=== PATIENT | female | born 1950 | race Caucasian/White ===

== ENCOUNTER → 2017-07-06 | Outpatient (CLI) | payer MEDICARE, SELFPAY | PROVIDERS: PCP Internal Medicine; Visit Provider Internal Medicine | DX: R92.8 Other abnormal and inconclusive findings on diagnostic imaging of breast (principal) | CPT/HCPCS: 76641; 77065; G0206 ==

== ENCOUNTER → 2017-07-20 15:22 | Outpatient (CLI) | payer MEDICARE, SELFPAY ==
--- NOTE | 2017-07-20 15:33 | XR_ITS ---
XR chest 2V HISTORY: ITS.REASON: COPD, COUGH, FEVER ORDERING PHYSICIAN: Nick Osborne PATIENT AGE: 66 years COMPARISON: 10/29/2015 FINDINGS: The cardiomediastinal silhouette and pulmonary vascularity are within normal limits. Hyperinflation with attenuation of peripheral pulmonary vessels and bronchial thickening consistent with obstructive chronic bronchitis. No lobar consolidation or collapse.. No acute bony abnormalities. IMPRESSION: COPD. No change with no acute finding
== END ==
PROVIDERS: PCP Internal Medicine; Visit Provider Internal Medicine
DX: J44.9 Chronic obstructive pulmonary disease, unspecified (principal); R05 Cough; R50.9 Fever, unspecified
CPT/HCPCS: 71046

== ENCOUNTER → 2018-01-07 13:02 | Outpatient (CLI) | payer MEDICARE, SELFPAY ==
--- NOTE | 2018-01-07 13:08 | US_ITS ---
MM Dig mamm DX unilat LT CAD, US breast LT complete Ordering Physician: Nick Osborne Patient Age: 67 years Female COMPARISON: Bilateral mammogram 09/20/2015 and April 2014. 06/21/2017. Additional views left breast and left breast ultrasound 07/06/2017.. INDICATION: Further evaluation nodularity and calcifications left breast. TECHNIQUE: CC, MLO as well as spot magnification CC and MLO views of the left breast. . Subsequent ultrasound including axillary survey also subsequent performed bh ======== DIAGNOSTIC LEFT MAMMOGRAM WITH SPOT VIEWS Scattered minimal nodularity throughout the left breast again seen. . Scattered small punctate calcifications throughout the inferior breast. Similarly the loosely grouped with internal branching forms on these images.. The tight grouping calcifications less evident These appear fairly similar to prior studies and most likely reflecting adenosis.. Patient may resume annual follow-up., may want request additional magnification views on that follow-up ========= ULTRASOUND LEFT BREAST Including Axillary Survey . scattered small cysts are seen throughout left breast 12:00. Just less than 5 mm cyst 1:00. Tiny thin 3.8 mm cyst. 2:00 5 mm cyst. 8:00. 6.4 mm cyst. With this likely accounts for the density on recent mammogram Just Behind the nipple no area of minor ductal prominence vs small cyst less than 5 mm. Axillary survey. Benign axillary lymph node largest 1.5 cm length. ------IMPRESSION: Left Breast Mammogram Images: no significant new findings. Fairly stable appearance to the numerous faint small punctate calcifications and inferior breast. These are fairly scattered & fairly stable. Most likely reflecting adenosis. Bilateral follow-up mammogram in 6 months to resume annual schedule Suggest including/requesting magnification views inferior left breast at that time. Left Breast Ultrasound: shows scattered small cyst . No suspicious findings BI-RADS Category: 2 Benign Finding(s) RECOMMENDED FOLLOW-UP: 6M 6 MONTH FOLLOW-UP A letter has been sent to the patient regarding results of the study.)
== END ==
PROVIDERS: Family Provider Internal Medicine; PCP Internal Medicine; Visit Provider Internal Medicine
DX: R92.8 Other abnormal and inconclusive findings on diagnostic imaging of breast (principal)
CPT/HCPCS: 76641; 77065

== ENCOUNTER → 2018-03-26 09:54 | Outpatient (CLI) | payer MEDICARE, SELFPAY ==
[2018-03-26 10:17] LABS: Basophils # 0.1 K/mm3 (0-0.2); Basophils % 0.4 % (0.1-2.0); Eosinophils # 0.2 K/mm3 (0.0-0.4); Hematocrit 38.4 % (37.0-47.0); Hemoglobin 11.8 g/dL (12.2-16.2); Lymphocytes # 1.7 K/mm3 (0.7-4.5); Lymphocytes % 10.2 K/mm3 (10-50); Mean Corpuscular HGB Conc 30.8 g/dL (31.8-35.4); Mean Corpuscular Hemoglobin 23.9 pg (27.0-31.2); Mean Corpuscular Volume 77.7 fl (81-99); Mean Platelet Volume 6.5 fl (7.4-10.4); Monocytes # 0.7 K/mm3 (0.1-1.0); Monocytes % 4.3 % (1.7-9.3); Neutrophils # 13.7 K/mm3 (1.8-7.8); Neutrophils % 84.1 % (37.0-80.0); Platelet Count 350 K/mm3 (142-424); Red Blood Count 4.94 M/mm3 (4.20-5.40); Red Cell Distribution Width 14.8 % (11.5-17.5); White Blood Count 16.3 K/mm3 (4.8-10.8)
[2018-03-26 10:21] LABS: MANUAL DIFFERENTIAL MANUAL DIFFERENTIAL (MANUAL DIFF)
[2018-03-26 10:40] LABS: Hemoglobin A1C 7.4 % (0.0-7.0)
[2018-03-26 10:41] LABS: Eosinophils % 3 % (0-3); Lymphocytes % 13 % (10-50); Monocytes % 2 % (2-9); Neutrophils % 82 % (42-76); Total Cells Counted 100
[2018-03-26 10:42] LABS: Microcytosis 1+; Platelet Estimate Normal
[2018-03-26 10:57] LABS: Alanine Aminotransferase 73 U/L (12-78); Albumin Level 3.5 gm/dL (3.4-5.0); Alkaline Phosphatase 64 U/L (46-116); Anion Gap 11.6 mEq/L (5-15); Aspartate Amino Transferase 64 U/L (15-37); Bilirubin,Total 0.3 mg/dL (0.2-1.0); Blood Urea Nitrogen 9 mg/dL (7-18); Calcium 9.3 mg/dL (8.5-10.1); Carbon Dioxide 31 mmol/L (21.0-32.0); Chloride 104 mmol/L (98-107); Chol/HDL Ratio 2.2 (1-3.5); Cholesterol 126 mg/dL (140-200); Creatinine,Serum 0.67 mg/dL (0.55-1.02); Estimated Glomerular Filt Rate 88 ml/min (>60); GFR (African American) 106 ML/MIN (>60); Globulin 3.6 gm/dl (1.3-3.2); Glucose 126 mg/dL (74-106); HDL Cholesterol 58 mg/dL (29-89); LDL Cholesterol 49 mg/dL (0-130); Potassium 4.6 mmoL/L (3.5-5.1); Sodium 142 mmol/L (136-145); Total Protein,Serum 7.1 gm/dL (6.4-8.2); Triglycerides 95 mg/dL (30-200); VLDL Cholesterol 19 mg/dL (0-40)
[2018-03-26 16:58] LABS: Reticulocyte % (Auto) 1.8 % (0.9-3.2)
[2018-03-27 12:46] LABS: Microalbumin, Urine 22.3 ug/mL (Not Estab.)
[2018-03-28 13:23] LABS: UIBC 396 ug/dL (118-369)
[2018-03-29 07:02] LABS: Iron 38 ug/dL (27-139); Iron Saturation 9 % (15-55)
== END ==
PROVIDERS: PCP Internal Medicine; Visit Provider Internal Medicine
DX: E11.59 Type 2 diabetes mellitus with other circulatory complications (principal); E11.9 Type 2 diabetes mellitus without complications; I25.10 Atherosclerotic heart disease of native coronary artery without angina pectoris; D64.9 Anemia, unspecified; I10 Essential (primary) hypertension
CPT/HCPCS: 36415; 80053; 80061; 82043; 83036; 83540; 83550; 85007; 85025; 85044

== ENCOUNTER → 2018-09-03 15:08 | Outpatient (CLI) | payer MEDICARE, SELFPAY ==
--- NOTE | 2018-09-03 15:26 | XR_ITS ---
XR chest 2V HISTORY: ITS.REASON: CHEST PAIN, COPD ORDERING PHYSICIAN: Nick Osborne PATIENT AGE: 68 years COMPARISON: 07/20/2017 FINDINGS: The cardiomediastinal silhouette and pulmonary vascularity are within normal limits. The lungs are clear without infiltrates, suspicious nodules, or pleural effusions. No acute bony abnormalities. IMPRESSION: Negative chest, no acute finding
== END ==
PROVIDERS: PCP Internal Medicine; Visit Provider Internal Medicine
DX: R07.9 Chest pain, unspecified (principal); J44.9 Chronic obstructive pulmonary disease, unspecified
CPT/HCPCS: 71046; 93005

== ENCOUNTER → 2018-10-10 15:53 | Outpatient (CLI) | payer MEDICARE, SELFPAY ==
--- NOTE | 2018-10-10 15:57 | MM_ITS ---
MM Dig screening mamm BI w/CAD ORDERING PHYSICIAN : Nick Osborne PATIENT AGE: 68 years GENDER: Female COMPARISON: June 2017 , September 2015, April 2014 Also left mammogram study from December. Previous breast ultrasounds studies from September 2015 and June 2017 & January 2018 INDICATION: Routine: SCREENING no hormones. No new complaints Previous excisional biopsy left & right breast Family history: noncontributory TECHNIQUE: Standard CC and MLO images were obtained. R2 CAD reviewed. Additional nipple profile cc views bilateral FINDINGS: Diffuse scattered fibroglandular elements. Moderate density heterogeneous breast. This patient's pattern Slightly decreases sensitivity of mammography RIGHT BREAST: 8 mm Round nodular density labeled A is noted at the deep upper outer quadrant right breast. Suspect small cyst but since this area is more apparent and appears slightly larger on today's cc view and only slightly more evident on MLO view would suggest ultrasound & spot views to further evaluate. Stable focal area of density & minor architectural irregularity at the deep right breast again noted. Stable since 2013. This likely accounts for the area of density at the inferior breast on MLO view is well. This is labeled B. LEFT BREAST: The round 7 mm density at the medial left breast has been previously seen & shown to be benign cyst on prior ultrasound studies.... Labeled Y . There are scattered numerous very tiny punctate in the region labeled X. Inferior medial breast These faintly been seen before but are perhaps slightly more evident & Would benefit from magnification views when patient returns as well. IMPRESSION: History of fibrocystic breast. 1. Right Breast. ... 8 mm nodular density upper-outer quadrant labeled A, has become more evident.-Likely cyst but warrant ultrasound and spot views 2. Left Breast ... Grouping numerous very tiny calcifications inferior medial left breast. Previously noted but slightly more apparent today- warrant magnification views to further evaluate.-This area labeled X ... Stable 8 mm nodule at the medial left breast labeled Y-compatible stable cyst seen on previous December 2017 ultrasound again noted. . BI-RADS Category: 0 Need Additional Imaging Evaluation RECOMMENDED FOLLOW-UP: IMM - IMMEDIATE FOLLOW-UP RECOMMENDED Right breast ultrasound & spot view of area A Left breast magnification views of faint grouped tiny calcifications area X (A letter has been sent to the patient regarding results of the study.) ..
== END ==
PROVIDERS: PCP Internal Medicine; Visit Provider Internal Medicine
DX: Z12.31 Encounter for screening mammogram for malignant neoplasm of breast (principal)
CPT/HCPCS: 77067

== ENCOUNTER → 2018-10-21 12:42 | Outpatient (CLI) | payer MEDICARE, SELFPAY ==
--- NOTE | 2018-10-21 12:57 | US_ITS ---
US breast RT complete MM Dig mamm DX bilateral Right breast ultrasound with axilla INDICATION: Follow-up abnormal mammogram right breast nodule, left breast calcifications ORDERING PHYSICIAN: Nick Osborne PATIENT AGE: 68 years COMPARISON: 10/10/2018, 01/07/2018 TECHNIQUE: Bilateral spot compression views and right breast ultrasound FINDINGS: There is average to dense fibroglandular tissue which does somewhat decrease the sensitivity of mammography. Right breast: There is persistent well-circumscribed benign-appearing nodular density in the lateral aspect of the right breast measuring approximately 7 mm. Scattered areas of asymmetry are noted in the right breast including the asymmetric area of increased density in the deep medial aspect of the right breast. Which is only well seen on the cc view and has been present on multiple previous exams. No malignant appearing mass or malignant appearing microcalcifications are evident. Right breast ultrasound: There are multiple cysts present in the right breast including a 4 mm cyst at 12:00, 3 mm cyst at 1:00, 5 mm cyst at 2:00, 4 mm cyst at 5:00, 3 mm cyst at 6:00, 4 mm cyst at 6:00, 4 mm cyst at 7:00 and 7 mm cyst at 9:00 which may account for the mammographic abnormality. 5 mm cyst at 11:00. No suspicious nodules are evident. Small nodes are present in the axilla. Left breast: There are 2 loosely clustered areas of calcification noted in the medial aspect of the left breast are felt to be mostly stable since 01/11/2011 with questionable slight increase in number of calcifications. 6 month follow-up suggested with magnification views IMPRESSION: Bilaterally benign findings. Suggest 6 month bilateral mammographic follow-up with problem-solving views performed as today's exam and right breast ultrasound BI-RADS Category: 3 Probably Benign Finding Short Term Follow-up RECOMMENDED FOLLOW-UP: 6M - 6 MONTH FOLLOW-UP (A letter has been sent to the patient regarding results of the study.)
== END ==
PROVIDERS: PCP Internal Medicine; Visit Provider Internal Medicine
DX: R92.8 Other abnormal and inconclusive findings on diagnostic imaging of breast (principal)
CPT/HCPCS: 76641; 77065

== ENCOUNTER → 2018-12-06 15:07 | Outpatient (CLI) | payer MEDICARE, SELFPAY ==
[2018-12-06 15:19] LABS: Basophils # 0.1 K/mm3 (0-0.2); Basophils % 0.6 % (0.1-2.0); Eosinophils # 0.2 K/mm3 (0.0-0.4); Eosinophils % 1.3 % (0.1-12.0); Hematocrit 38.5 % (37.0-47.0); Hemoglobin 12.3 g/dL (12.2-16.2); Lymphocytes # 2.4 K/mm3 (0.7-4.5); Lymphocytes % 21.3 % (10-50); Mean Corpuscular HGB Conc 31.9 g/dL (31.8-35.4); Mean Corpuscular Hemoglobin 24.6 pg (27.0-31.2); Mean Corpuscular Volume 77.2 fl (81-99); Mean Platelet Volume 6.6 fl (7.4-10.4); Monocytes # 0.5 K/mm3 (0.1-1.0); Neutrophils # 8.3 K/mm3 (1.8-7.8); Neutrophils % 72.9 % (37.0-80.0); Platelet Count 323 K/mm3 (142-424); Red Blood Count 4.99 M/mm3 (4.20-5.40); Red Cell Distribution Width 16.8 % (11.5-17.5); White Blood Count 11.4 K/mm3 (4.8-10.8)
[2018-12-06 19:12] LABS: Anion Gap 13.7 mEq/L (5-15); Blood Urea Nitrogen 11 mg/dL (7-18); Calcium 9.2 mg/dL (8.5-10.1); Carbon Dioxide 29 mmol/L (21.0-32.0); Chloride 103 mmol/L (98-107); Creatinine,Serum 0.62 mg/dL (0.55-1.02); Estimated Glomerular Filt Rate 95 ml/min (>60); GFR (African American) 115 ML/MIN (>60); Glucose 141 mg/dL (74-106); Potassium 4.7 mmoL/L (3.5-5.1); Sodium 141 mmol/L (136-145)
== END ==
PROVIDERS: Visit Provider Surgery
DX: N64.9 Disorder of breast, unspecified (principal); Z79.899 Other long term (current) drug therapy
CPT/HCPCS: 36415; 80048; 85025

== ENCOUNTER 2018-12-11 10:37 | Outpatient (CLI) | payer MEDICARE, SELFPAY ==
[2018-12-11 10:45] VITALS: BP 148/65; PULSE 87; RESP 18; TEMP 36.6; O2SAT 92
[2018-12-11 10:50] VITALS: BP 148/65; PULSE 87; RESP 18; TEMP 36.6; O2SAT 92; BMI 32.8
--- NOTE | 2018-12-11 10:50 | PC.NURSE ---
Patient presents to the unit for a scheduled dressing change to her left breast. Site is free from any redness, or inflamation to the site, patient has two sites one above and below the nipple that has idioform gauze packed in it. The site was irrigated first with normal saline to loosen the packing strips and then removed, scant bleeding noted to the packing strips patient tolerated this well. More saline was used to clean the areas and then packed with the idioform strips using sterile q tips, and then covered with sterile 4x4 gauze and medipore tape used to secure the gauze in place. Patient will be back tomorrow for dressing change and will follow up on Sunday with Dr. Amor.
== END 2018-12-11 11:10 | disposition home or self-care (01) ==
LOC: INF 10:37
PROVIDERS: Visit Provider Surgery
DX: N61.1 Abscess of the breast and nipple (principal); Z48.01 Encounter for change or removal of surgical wound dressing
CPT/HCPCS: G0463

== ENCOUNTER 2018-12-12 10:36 | Outpatient (CLI) | payer MEDICARE, SELFPAY ==
--- NOTE | 2018-12-12 11:18 | PC.NURSE ---
Pt has two round wounds on left nipple. Superior wound packed with 1.5 cm iodoform packing and Inferior wound packed with 3 cm iodoform packing. Wound bed is clean, red, and moist with scant drainage. Covered with dry 4x4 gauze and gauze tape. Pt verbalized understanding of plan to follow up with Dr. Amor tomorrow and if daily dressings needed to come in through ER as directed for dressing changes. Pt denies any questions. No s/sx of infection.
== END 2018-12-12 11:30 | disposition home or self-care (01) ==
LOC: INF 10:36
PROVIDERS: Visit Provider Surgery
DX: N61.1 Abscess of the breast and nipple (principal)

== ENCOUNTER → 2019-06-04 14:23 | Outpatient (CLI) | payer MEDICARE, SELFPAY ==
--- NOTE | 2019-06-04 14:29 | MM_ITS ---
PROCEDURE: MM DIG MAMM BI DX W/CAD CLINICAL INDICATION: 6 MONTH F/U Findings in the room screen a images the the the the 1 COMPARISON: [facility] DIGITAL MAMM-SCREEN BILATERAL from 05/17/2010 [facility] DIG MAMM-SCREEN LAQUITA from 02/27/2013 [facility] DIG MAMM-SCREEN LAQUITA from 05/13/2014 [facility] DIG MAMM-SCREEN LAQUITA from 09/20/2015 [facility] DIG MAMM-DX UNI A/VWS-LT W/CAD from 07/06/2017 DXLT MM Dig mamm DX unilat LT CAD from 01/07/2018 [facility] MM Dig screening mamm BI w/CAD from 10/10/2018 BREASTRT US breast RT complete from 10/21/2018 DXRT MM Dig mamm DX unilat RT CAD from 10/21/2018 US BREAST RT COMPLETE from 06/04/2019 TECHNIQUE: Bilateral diagnostic mammogram with spot compression Mag. Right breast ultrasound. FINDINGS: Average fibroglandular tissue. Right breast: No change in the benign-appearing nodule in the outer aspect of the right breast. Other smaller benign-appearing nodular densities are present along with benign-appearing calcifications. No malignant appearing mass or malignant-appearing microcalcification.. There is an area of asymmetric density in the medial aspect of the right breast not significantly changed dating back to 05/17/2010 Right breast ultrasound: Multiple cysts are once again noted as previously described. No suspicious mass apparent. At 9 o'clock there is a 6 mm hypoechoic nodule with enhanced through transmission of sound consistent with a cyst and may represent the mammographic area of concern. This is not significantly changed. There are some low level echoes within this nodule however this could be due to artifact. Left breast: Benign-appearing nodules unchanged. Scattered loosely clustered calcifications. Overall no significant change in the loose cluster of microcalcifications in the medial aspect of the left breast IMPRESSION: Overall no significant change in the above-mentioned findings which are felt to be benign. Recommend follow-up of both breast in September of 2019 to confirm 1 year stability. BI-RAD Category: 3 Probably Benign Finding Short Term Follow-up FOLLOW-UP: 6M 6Month Follow-up (A letter has been sent to the patient regarding results of the study.) Dictated by: Hu Nieves MD 06/11/2019 08:36 Electronically signed by Hu Nieves MD in [facility] 06/11/2019 08:36
== END ==
PROVIDERS: PCP Internal Medicine; Visit Provider Internal Medicine
DX: R92.8 Other abnormal and inconclusive findings on diagnostic imaging of breast (principal)
CPT/HCPCS: 76641; 77066

== ENCOUNTER → 2019-06-16 16:13 | Outpatient (CLI) | payer MEDICARE, SELFPAY ==
--- NOTE | 2019-06-16 16:16 | XR_ITS ---
PROCEDURE: XR CHEST 2V CLINICAL HISTORY: COPD EXACERBATION, RIGHT LATERAL CHEST PAIN COMPARISON: CXR2V XR chest 2V from 09/03/2018 FINDINGS: The cardiomediastinal silhouette and pulmonary vascularity are within normal limits. The lungs are clear without infiltrates, suspicious nodules, or pleural effusions. Degenerative changes of the shoulders IMPRESSION: No change with no acute finding Dictated by: Hu Nieves MD 06/16/2019 16:46 Electronically signed by Hu Nieves MD in [facility] 06/16/2019 16:46
== END ==
PROVIDERS: PCP Internal Medicine; Visit Provider Internal Medicine
DX: R07.89 Other chest pain (principal); J44.1 Chronic obstructive pulmonary disease with (acute) exacerbation
CPT/HCPCS: 71046

== ENCOUNTER → 2020-05-20 10:55 | Outpatient (CLI) | payer MEDICARE, SELFPAY ==
--- NOTE | 2020-05-20 10:59 | MM_ITS ---
PROCEDURE: MM DIG SCREENING MAMM BI W/CAD Digital Breast Tomosynthesis Included CLINICAL INDICATION: SCREENING There is no personal or family history of breast cancer. There have been previous biopsies on each breast for benign disease. COMPARISON: MG [facility] MM Dig screening mamm BI w/CAD from 10/10/2018 MG DXRT MM Dig mamm DX unilat RT CAD from 10/21/2018 MG MM DIG MAMM BI DX W/CAD from 06/04/2019 TECHNIQUE: Standard CC and MLO images and 3D Tomosynthesis was obtained. R2 CAD reviewed. FINDINGS: Moderate diffuse fibroglandular densities are seen throughout both breast. There is a mole marker left breast. There are few benign-appearing microcalcifications left breast. There is a benign-appearing smoothly marginated nodular density lower left breast. There is a similar appearing benign-appearing round density right breast. Both of these appear to be stable unchanged from previous exams. There is no new or suspicious lesion in either breast and no suspicious microcalcifications. IMPRESSION: Moderate diffuse breast density with no suspicious lesions seen BI-RAD Category: 2 Benign Finding(s) FOLLOW-UP: 1YR 1 Year Follow-up (A letter has been sent to the patient regarding results of the study.) Dictated by: Dr. Jayden Gutiérrez MD 05/25/2020 13:05 Dr. Jayden Gutiérrez MD in [facility] 05/25/2020 13:05
== END ==
PROVIDERS: PCP Internal Medicine; Visit Provider Internal Medicine
DX: Z12.31 Encounter for screening mammogram for malignant neoplasm of breast (principal)
CPT/HCPCS: 77063; 77067

== ENCOUNTER → 2020-05-24 07:07 | Outpatient (CLI) | payer MEDICARE, SELFPAY ==
[2020-05-24 07:48] LABS: Blood Urea Nitrogen 17 mg/dl (7-17); Estimated Glomerular Filt Rate 122 ml/min (>60); GFR (African American) 148 ML/MIN (>60)
--- NOTE | 2020-05-24 08:04 | CT_ITS ---
Procedure: CT ANGIO NECK CLINICAL HISTORY: carotid stenosis,,episode of slurred speech COMPARISON: No exams were available for comparison TECHNIQUE: IV Contrast: 100ml Isovue 370 Axial images obtained with sagittal and coronal reformats. All CT scans at the facility use one or more dose reduction, viz: automated exposure control, ma/kV adjustment per patient size (including targeted exams where dose is matched to indication, i.e. head), or iterative reconstruction technique. FINDINGS: Atherosclerotic calcification involves the aorta. There is tortuosity of the carotid arteries. There is a mild amount of calcific plaque involving the right carotid bulb and proximal ICA with approximately 20 percent stenosis. No ulcerated plaque is evident on the right. There is tortuosity of the right internal carotid artery but no significant stenotic lesions. Calcific plaque is present in the cavernous portion of the right ICA. There is approximately 30 percent stenosis in this region. There is a small amount of calcific plaque in the left carotid bulb with approximately 30 percent stenosis. The cervical portion of the left internal carotid artery has an unremarkable appearance. There is calcific plaque also in the cavernous portion of the left ICA. There is a 50 percent stenotic segment in the clinoid portion of the left ICA. Soft plaque is present at this area. No obvious ulcerating plaque evident in the left carotid. There is moderate tortuosity of the left internal carotid artery within the neck. There is a very small left vertebral artery with dominant right vertebral artery noted. IMPRESSION: 1. There are mild atheromatous changes of the carotid bulbs bilaterally with no significant stenotic lesions evident. 2. Atheromatous changes are present in the intracranial cavernous portions of the ICAs on both sides with up to 50 percent of the left ICA at the clinoid region 3. Dominant right vertebral artery has an unremarkable appearance with a very small left vertebral artery noted. Dictated by: Hu Nieves MD 05/25/2020 13:12 Hu Nieves MD in [facility] 05/25/2020 13:12
== END ==
PROVIDERS: PCP Internal Medicine; Visit Provider Internal Medicine
DX: I65.23 Occlusion and stenosis of bilateral carotid arteries (principal)
CPT/HCPCS: 36415; 70498; 82565; 84520; Q9967

== ENCOUNTER → 2021-01-18 11:15 | Outpatient (CLI) | payer MEDICARE, SELFPAY ==
--- NOTE | 2021-01-18 11:21 | XR_ITS ---
PROCEDURE: XR KNEE RT 3V CLINICAL INDICATION: RT KNEE PAIN COMPARISON: No exams were available for comparison FINDINGS: No fracture or dislocation. No lytic or blastic change. There is normal mineralization. Minimal osteoarthritic changes are present involving the medial compartment. Chondrocalcinosis noted involving the medial and lateral meniscus. No acute fracture or dislocation. May be a small suprapatellar effusion with minimal spurring also noted along the superior patella posteriorly. Other findings:None. IMPRESSION: Mild osteoarthritic change with chondrocalcinosis Dictated by: Hu Nieves MD 01/18/2021 11:41 Hu Nieves MD in [facility] 01/18/2021 11:41
== END ==
PROVIDERS: PCP Internal Medicine; Visit Provider Internal Medicine
DX: M25.561 Pain in right knee (principal)
CPT/HCPCS: 73562

== ENCOUNTER → 2021-05-04 17:26 | Outpatient (CLI) | payer MEDICARE, SELFPAY ==
[2021-05-04 17:59] LABS: Basophils # 0.1 K/mm3 (0-0.2); Basophils % 0.7 % (0.1-2.0); Eosinophils # 0.2 K/mm3 (0.0-0.4); Eosinophils % 1.8 % (0.1-12.0); Hematocrit 40.2 % (37.0-47.0); Hemoglobin 11.6 g/dL (12.2-16.2); Lymphocytes # 2.3 K/mm3 (0.7-4.5); Lymphocytes % 21.1 % (10-50); Mean Corpuscular HGB Conc 28.8 g/dL (31.8-35.4); Mean Corpuscular Hemoglobin 24.1 pg (27.0-31.2); Mean Corpuscular Volume 83.7 fl (81-99); Mean Platelet Volume 8.8 fl (7.4-10.4); Monocytes # 0.5 K/mm3 (0.1-1.0); Neutrophils # 7.7 K/mm3 (1.8-7.8); Neutrophils % 71.4 % (37.0-80.0); Platelet Count 378 K/mm3 (142-424); White Blood Count 10.7 K/mm3 (4.8-10.8)
[2021-05-04 18:42] LABS: Hemoglobin A1C 6.8 % (4.0-6.0)
[2021-05-04 18:43] LABS: Alanine Aminotransferase 17 U/L (12-78); Albumin Level 3.9 g/dl (3.5-5.0); Albumin/Globulin Ratio 1.5 (1.1-1.8); Alkaline Phosphatase 51 U/L (38-126); Anion Gap 18.6 mEq/L (5-15); Aspartate Amino Transferase 26 U/L (14-36); Blood Urea Nitrogen 11 mg/dl (7-17); Calcium 8.4 mg/dl (8.4-10.2); Carbon Dioxide 25 mmol/L (22.0-30.0); Chloride 100 mmol/L (98-107); Cholesterol 125 mg/dl (140-200); Estimated Glomerular Filt Rate 157 ml/min (>60); GFR (African American) 190 ML/MIN (>60); Globulin 2.6 g/dL (1.3-3.2); Glucose 75 mg/dl (74-100); HDL Cholesterol 42 mg/dl (40-60); Potassium 4.6 mmoL/L (3.5-5.1); Sodium 139 mmol/L (136-145); Total Protein,Serum 6.5 g/dl (6.3-8.2); Triglycerides 172 mg/dl (30-150); VLDL Cholesterol 34 mg/dL (0-40)
[2021-05-04 18:50] LABS: Bilirubin,Total 0.1 mg/dl (0.2-1.3)
[2021-05-04 18:54] LABS: Direct LDL Cholesterol 61.75 mg/dL (100-129)
== END ==
PROVIDERS: Visit Provider Internal Medicine
DX: I25.10 Atherosclerotic heart disease of native coronary artery without angina pectoris (principal); I10 Essential (primary) hypertension; E78.5 Hyperlipidemia, unspecified; E11.59 Type 2 diabetes mellitus with other circulatory complications; J44.9 Chronic obstructive pulmonary disease, unspecified; M15.0 Primary generalized (osteo)arthritis; Z79.84 Long term (current) use of oral hypoglycemic drugs
CPT/HCPCS: 80053; 80061; 83036; 85025

== ENCOUNTER → 2021-05-09 18:32 | Outpatient (CLI) | payer MEDICARE, SELFPAY ==
[2021-05-09 20:50] LABS: Vitamin B12 260 pg/mL (239-931)
[2021-05-09 21:28] LABS: Iron 46 ug/dL (37-170)
[2021-05-09 21:37] LABS: Total Iron Binding Capacity 451 ug/dL (265-497)
[2021-05-09 22:04] LABS: Ferritin 7.49 ng/ml (11.1-264)
== END ==
PROVIDERS: Visit Provider Internal Medicine
DX: D64.9 Anemia, unspecified (principal)
CPT/HCPCS: 82607; 82728; 83540; 83550; 85044

== ENCOUNTER → 2021-08-03 12:35 | Outpatient (CLI) | payer MEDICARE, SELFPAY ==
[2021-08-03 13:16] LABS: Basophils # 0.1 K/mm3 (0-0.2); Eosinophils # 0.1 K/mm3 (0.0-0.4); Eosinophils % 1.2 % (0.1-12.0); Hematocrit 40.4 % (37.0-47.0); Hemoglobin 12.7 g/dL (12.2-16.2); Mean Corpuscular HGB Conc 31.4 g/dL (31.8-35.4); Mean Corpuscular Hemoglobin 25.2 pg (27.0-31.2); Mean Corpuscular Volume 80.2 fl (81-99); Mean Platelet Volume 9.6 fl (7.4-10.4); Monocytes # 0.8 K/mm3 (0.1-1.0); Monocytes % 7.6 % (1.7-9.3); Neutrophils # 7.6 K/mm3 (1.8-7.8); Neutrophils % 71.3 % (37.0-80.0); Platelet Count 366 K/mm3 (142-424); Red Blood Count 5.04 M/mm3 (4.20-5.40); Red Cell Distribution Width 15.6 % (11.5-17.5); Reticulocyte % (Auto) 1.3 % (0.9-3.2); White Blood Count 10.7 K/mm3 (4.8-10.8)
[2021-08-03 15:48] LABS: Hemoglobin A1C 6.6 % (4.0-6.0)
== END ==
PROVIDERS: Visit Provider Internal Medicine
DX: I25.10 Atherosclerotic heart disease of native coronary artery without angina pectoris (principal); I10 Essential (primary) hypertension; E11.59 Type 2 diabetes mellitus with other circulatory complications; D50.9 Iron deficiency anemia, unspecified; Z79.84 Long term (current) use of oral hypoglycemic drugs
CPT/HCPCS: 83036; 85025; 85044

== ENCOUNTER → 2021-08-15 10:23 | Outpatient (CLI) | payer MEDICARE, SELFPAY ==
--- NOTE | 2021-08-15 10:29 | MM_ITS ---
PROCEDURE INFORMATION: Exam: MG Bilateral Screening 3D Mammography Exam date and time: 08/15/2021 10:29 AM Age: 71 years old Clinical indication: Encounter for screening mammogram for malignant neoplasm of breast TECHNIQUE: Imaging protocol: Bilateral Screening tomosynthesis and 2D mammography including computer-aided detection (CAD) when performed. COMPARISON: 1. MG MM DIG SCREENING MAMM BI W/CAD 05/20/2020 11:03 AM 2. MG MM DIG MAMM BI DX W/CAD 06/04/2019 2:54 PM FINDINGS: MAMMOGRAPHY: Breast composition: The breast tissue is composed of scattered areas of fibroglandular density. Mass: None. Architectural distortion: None. Calcifications: No suspicious calcifications. Asymmetric density: None. Skin thickening: None. Axillary adenopathy: None. IMPRESSION: No mammographic evidence of malignancy. Annual screening is recommended unless otherwise clinically indicated. ASSESSMENT: BI-RADS Category 1: Negative
== END ==
PROVIDERS: PCP Internal Medicine; Visit Provider Internal Medicine
DX: Z12.31 Encounter for screening mammogram for malignant neoplasm of breast (principal)
CPT/HCPCS: 77063; 77067

== ENCOUNTER → 2021-09-21 12:57 | Outpatient (CLI) | payer MEDICARE, SELFPAY ==
--- NOTE | 2021-09-21 13:06 | XR_ITS ---
FINAL REPORT CLINICAL HISTORY: knee pain COMPARISON: 01/18/2021 FINDINGS: RIGHT KNEE Four views demonstrate no acute fracture or dislocation. Mild degenerative changes are present. There is meniscal calcification. Small joint effusion is identified. No acute soft tissue abnormality is seen. IMPRESSION: Mild degenerative changes and small joint effusion. Reviewed, Interpreted and Dictated by Jd Cruz III, MD Transcribed by Rosanne Ibrahim Authenticated by Jd Cruz III, MD on 09/21/2021 02:28:30 PM [facility]
== END ==
PROVIDERS: PCP Internal Medicine; Visit Provider Orthopaedic Surgery
DX: M25.561 Pain in right knee (principal)
CPT/HCPCS: 73564

== ENCOUNTER → 2021-10-17 10:09 | Outpatient (CLI) | payer MEDICARE, SELFPAY | PROVIDERS: Visit Provider Internal Medicine | DX: Z01.812 Encounter for preprocedural laboratory examination (principal); Z11.52 Encounter for screening for COVID-19; Z12.11 Encounter for screening for malignant neoplasm of colon; Z86.010 Personal history of colon polyps | CPT/HCPCS: C9803; U0003; U0005 ==

== ENCOUNTER 2021-10-19 06:56 | Day surgery (SDC) | payer MEDICARE, SELFPAY ==
[2021-10-06 11:14] VITALS: BMI 31.1
[2021-10-19 07:34] VITALS: BP 172/71; PULSE 89; RESP 18; TEMP 36.7; O2SAT 96
[2021-10-19 08:52] VITALS: O2SAT 96
--- NOTE | 2021-10-19 09:03 | HMH.ANESCL ---
[facility] Anesthesia Checklist - Patient Identification Patient Identification: Arm Band, Verbal (Name & ) - Structural Data Admitted From: Home Planned Operative Procedure/s: Colonoscopy Consent for Planned Operative Procedure(s) Verified: Yes Verified Documents: Surgical Consent - NPO Status Verified Time NPO: 00:00 - Additional verifications Anesthesia Reactions: No Hx Blood Transfusions: No Blood Transfusion Reaction: No - Airway Assessment C-Spine Mobility Assessed: Yes TMJ Mobility Assessed: Yes Dentition: Good Dentition - Neurological Assessment Level of Consciousness: Awake, Alert, Appropriate - Anesthesia Plan Anesthesia Risk discussed: Yes ASA Class: III Anesthesia Type: MAC [facility] History I have reviewed the patient's past medical history: Yes Medical History: Reports:: Anxiety, Depression, Diabetes Mellitus Type 2, Gastroesophageal Reflux Disease(GERD), Hyperlipidemia, Hypertension Denies:: Cancer, Diabetes Mellitus Type 1, Internal Pacemaker, MRSA, Seizures *Have you ever received a pneumonia vaccine?: Yes *Have you received a flu vaccine this season?: Yes Other Medical History: Denies: Blood Transfusion Reaction Anesthesia experience/problems:: no issues Other Surgeries: Yes: No Previous Surgery, Colonoscopy, Other. No: Pacemaker Amputation: No Fractures: Yes - *Social History Last grade of school completed: 7th or 8th Smoking Status: Never smoker Tobacco Type: cigarettes # Packs/Day (cigarettes): 1 Alcohol Intake: never Substance Use Type: denies use *Occupational Status:: retired Housing: house Household Members: spouse *Travel in the last 8 weeks: None - Psychiatric History Pschychiatric History:: Reports:: Anxiety, Depression Family Hx:: No significant family history
--- NOTE | 2021-10-19 09:21 | HMH.SCOPE ---
- Procedure: Date: 10/19/21 Patient Date of :: 1950 Procedure Performed:: Colonoscopy Indications:: The patient is a 71 year old who is here for surveillance colonoscopy for history of colon polyps. Performing Provider:: Rocco Chery MD Referring Provider:: Nick Osborne MD Sedation:: See RN notes Procedure:: After placing the patient in the left lateral decubitus position, the colonoscopy was gently inserted into the rectum and under direct visualization advanced to the cecum which was identified by transillumination in the right lower quadrant, identification of the ileocecal valve, appendiceal orifice, and cecal strap. Color, texture, mucosa, and anatomy of the colon were carefully examined with the scope. Findings:: Anal canal: normal Rectum: internal hemorrhoids, hypertophic papilla Sigmoid colon: Large mouthed diverticula. Tortuous sigmoid colon Descending colon: Sessile polyp less than 5 mm in size. Removed with snare polypectomy Splenic flexure: normal Transverse colon: normal without polyps or inflammatory changes Hepatic flexure: normal Ascending colon: Sessile polyp less than 5 mm in size. Removed with snare polypectomy Cecum: normal Terminal ileum: not visualized Recommendations:: Await pathology results Repeat colonoscopy in 3 years Complications:: None Estimated blood obtained (mL): 0
[2021-10-19 09:22] VITALS: BP 121/61; PULSE 84; RESP 16; TEMP 36.3; O2SAT 95
[2021-10-19 09:32] VITALS: BP 138/67; PULSE 82; RESP 16; O2SAT 95
[2021-10-19 09:52] VITALS: BP 144/80; PULSE 73; RESP 16; TEMP 36.4; O2SAT 95
[2022-04-13 10:58] LABS: POC Glucose,Bedside 136 (70-110)
== END 2021-10-19 09:52 | disposition home or self-care (01) ==
PROVIDERS: PCP Internal Medicine; Visit Provider Internal Medicine
PROC: 0DJD8ZZ Inspection of Lower Intestinal Tract, Via Natural or Artificial Opening Endoscopic (ICD-10-PCS; CPT 45378; principal; 2021-10-19 09:00)
DX: Z12.11 Encounter for screening for malignant neoplasm of colon (principal); K56.2 Volvulus; K64.9 Unspecified hemorrhoids; K57.32 Diverticulitis of large intestine without perforation or abscess without bleeding; K63.5 Polyp of colon; D12.8 Benign neoplasm of rectum; Z86.010 Personal history of colon polyps; F41.9 Anxiety disorder, unspecified; E11.9 Type 2 diabetes mellitus without complications; K21.9 Gastro-esophageal reflux disease without esophagitis; E78.5 Hyperlipidemia, unspecified; I10 Essential (primary) hypertension
CPT/HCPCS: 45385; 82962; 88305

== ENCOUNTER → 2021-10-28 12:00 | Outpatient (CLI) | payer MEDICARE, SELFPAY ==
--- NOTE | 2021-10-28 12:05 | XR_ITS ---
FINAL REPORT CLINICAL HISTORY: rt shoulder pain FINDINGS: RIGHT SHOULDER Three views were obtained. There are marked hypertrophic changes of osteoarthritis at the inferior margin of the glenohumeral joint. There is a large well corticated ossific density lateral to the glenoid. Findings are consistent with sequela of an old fracture with secondary osteoarthritis. IMPRESSION: Marked hypertrophic changes of osteoarthritis as detailed above. Reviewed, Interpreted and Dictated by Gabino Zuluaga MD Transcribed by Rosanne Ibrahim Authenticated by Gabino Zuluaga MD on 10/28/2021 02:06:35 PM [facility][1]
== END ==
PROVIDERS: PCP Internal Medicine; Visit Provider Orthopaedic Surgery
DX: M25.511 Pain in right shoulder (principal)
CPT/HCPCS: 73030

== ENCOUNTER → 2021-11-01 11:54 | Outpatient (CLI) | payer MEDICARE, SELFPAY ==
[2021-11-01 15:05] LABS: Basophils # 0.1 K/mm3 (0-0.2); Basophils % 1.2 % (0.1-2.0); Eosinophils # 0.1 K/mm3 (0.0-0.4); Eosinophils % 1.3 % (0.1-12.0); Hematocrit 39.7 % (37.0-47.0); Hemoglobin 12.4 g/dL (12.2-16.2); Lymphocytes # 1.6 K/mm3 (0.7-4.5); Lymphocytes % 15.2 % (10-50); Mean Corpuscular HGB Conc 31.3 g/dL (31.8-35.4); Mean Corpuscular Hemoglobin 25.3 pg (27.0-31.2); Mean Corpuscular Volume 80.7 fl (81-99); Mean Platelet Volume 9.7 fl (7.4-10.4); Monocytes # 0.6 K/mm3 (0.1-1.0); Monocytes % 5.3 % (1.7-9.3); Neutrophils # 8.2 K/mm3 (1.8-7.8); Platelet Count 330 K/mm3 (142-424); Red Blood Count 4.92 M/mm3 (4.20-5.40); Red Cell Distribution Width 16.3 % (11.5-17.5); White Blood Count 10.6 K/mm3 (4.8-10.8)
[2021-11-01 15:32] LABS: Hemoglobin A1C 6.6 % (4.0-6.0)
[2021-11-01 15:34] LABS: Alanine Aminotransferase 20 U/L (12-78); Albumin Level 4.1 g/dl (3.5-5.0); Albumin/Globulin Ratio 1.8 (1.1-1.8); Alkaline Phosphatase 51 U/L (38-126); Anion Gap 13.5 mEq/L (5-15); Aspartate Amino Transferase 25 U/L (14-36); Bilirubin,Total 0.2 mg/dl (0.2-1.3); Blood Urea Nitrogen 13 mg/dl (7-17); Calcium 8.7 mg/dl (8.4-10.2); Carbon Dioxide 29 mmol/L (22.0-30.0); Chloride 101 mmol/L (98-107); Cholesterol 118 mg/dl (140-200); Estimated Glomerular Filt Rate 121 ml/min (>60); GFR (African American) 147 ML/MIN (>60); Globulin 2.3 g/dL (1.3-3.2); Glucose 104 mg/dl (74-100); HDL Cholesterol 39 mg/dl (40-60); Potassium 4.5 mmoL/L (3.5-5.1); Sodium 139 mmol/L (136-145); Total Protein,Serum 6.4 g/dl (6.3-8.2); Triglycerides 173 mg/dl (30-150); VLDL Cholesterol 35 mg/dL (0-40)
[2021-11-01 15:45] LABS: Direct LDL Cholesterol 55.69 mg/dL (100-129)
== END ==
PROVIDERS: PCP Internal Medicine; Visit Provider Internal Medicine
DX: I25.10 Atherosclerotic heart disease of native coronary artery without angina pectoris (principal); E11.59 Type 2 diabetes mellitus with other circulatory complications; E78.5 Hyperlipidemia, unspecified; J44.9 Chronic obstructive pulmonary disease, unspecified; Z79.84 Long term (current) use of oral hypoglycemic drugs
CPT/HCPCS: 80053; 80061; 83036; 85025

== ENCOUNTER → 2021-11-04 17:12 | Outpatient (CLI) | payer MEDICARE, SELFPAY ==
[2021-11-04 19:42] LABS: Creatinine,Urine Random 16 mg/dL (Not Estab.)
[2021-11-04 19:46] LABS: Microalbumin/Creatinine Ratio 66.8
== END ==
PROVIDERS: PCP Internal Medicine; Visit Provider Internal Medicine
DX: E11.59 Type 2 diabetes mellitus with other circulatory complications (principal); Z79.84 Long term (current) use of oral hypoglycemic drugs
CPT/HCPCS: 82043; 82570

== ENCOUNTER → 2022-05-02 12:43 | Outpatient (CLI) | payer MEDICARE, SELFPAY ==
[2022-05-02 15:37] LABS: Alanine Aminotransferase 18 U/L (12-78); Albumin/Globulin Ratio 1.6 (1.1-1.8); Alkaline Phosphatase 66 U/L (38-126); Anion Gap 17.6 mEq/L (5-15); Aspartate Amino Transferase 27 U/L (14-36); Bilirubin,Total 0.3 mg/dl (0.2-1.3); Blood Urea Nitrogen 13 mg/dl (7-17); Calcium 8.7 mg/dl (8.4-10.2); Carbon Dioxide 29 mmol/L (22.0-30.0); Chloride 98 mmol/L (98-107); Cholesterol 133 mg/dl (140-200); Estimated Glomerular Filt Rate 121 ml/min (>60); GFR (African American) 147 ML/MIN (>60); Globulin 2.5 g/dL (1.3-3.2); Glucose 122 mg/dl (74-100); HDL Cholesterol 44 mg/dl (40-60); Potassium 4.6 mmoL/L (3.5-5.1); Sodium 140 mmol/L (136-145); Total Protein,Serum 6.5 g/dl (6.3-8.2); Triglycerides 167 mg/dl (30-150); VLDL Cholesterol 33 mg/dL (0-40)
[2022-05-02 16:12] LABS: Basophils # 0.1 K/mm3 (0-0.2); Basophils % 0.9 % (0.1-2.0); Eosinophils # 0.1 K/mm3 (0.0-0.4); Eosinophils % 1.6 % (0.1-12.0); Hematocrit 39.7 % (37.0-47.0); Hemoglobin 12.3 g/dL (12.2-16.2); Lymphocytes # 1.9 K/mm3 (0.7-4.5); Lymphocytes % 21.5 % (10-50); Mean Corpuscular Volume 80.7 fl (81-99); Mean Platelet Volume 9.5 fl (7.4-10.4); Monocytes # 0.6 K/mm3 (0.1-1.0); Monocytes % 6.9 % (1.7-9.3); Neutrophils % 69.1 % (37.0-80.0); Platelet Count 381 K/mm3 (142-424); Red Blood Count 4.92 M/mm3 (4.20-5.40); Red Cell Distribution Width 15.4 % (11.5-17.5); White Blood Count 8.6 K/mm3 (4.8-10.8)
[2022-05-02 16:19] LABS: Direct LDL Cholesterol 72.08 mg/dL (100-129)
[2022-05-02 16:44] LABS: Ferritin 8.02 ng/ml (11.1-264)
[2022-05-02 18:41] LABS: Hemoglobin A1C 6.8 % (4.0-6.0)
== END ==
PROVIDERS: PCP Internal Medicine; Visit Provider Internal Medicine
DX: I25.10 Atherosclerotic heart disease of native coronary artery without angina pectoris (principal); I10 Essential (primary) hypertension; E11.59 Type 2 diabetes mellitus with other circulatory complications; E78.5 Hyperlipidemia, unspecified; Z79.84 Long term (current) use of oral hypoglycemic drugs
CPT/HCPCS: 80053; 80061; 82728; 83036; 85025

== ENCOUNTER → 2022-09-26 13:31 | Outpatient (CLI) | payer MEDICARE, SELFPAY ==
--- NOTE | 2022-09-26 13:35 | MM_ITS ---
PROCEDURE INFORMATION: Exam: MG Bilateral Screening 3D Mammography Exam date and time: 09/26/2022 1:27 PM Age: 72 years old Clinical indication: Screening examination. Concern for lateral breast pain. Her daughter had breast cancer. History of bilateral benign excisional biopsies. TECHNIQUE: Imaging protocol: Bilateral Screening tomosynthesis and 2D mammography including computer-aided detection (CAD) when performed. COMPARISON: 1. MG MM DIG SCREENING MAMM BI W/CAD 08/15/2021 10:30 AM 2. MG MM DIG SCREENING MAMM BI W/CAD 05/20/2020 11:03 AM 3. MG MM DIG MAMM BI DX W/CAD 06/04/2019 2:54 PM 4. MG DXRT MM Dig mamm DX unilat RT CAD 10/21/2018 1:12 PM FINDINGS: MAMMOGRAPHY: Breast composition: There are scattered areas of fibroglandular density. Mass: No suspicious mass. Architectural distortion: Stable architectural distortion in both inner breast, posterior 3rd corresponding to excisional biopsies is indicated on the technologist diagram. Calcifications: Questionable grouping of calcifications right breast 9 o'clock middle 3rd. Asymmetric density: None. Skin thickening: None. Axillary adenopathy: None. IMPRESSION: See comment Patient will be recalled for right diagnostic magnification views in CC and true lateral further evaluation of questionable right breast calcifications. Concern for breast pain, if focal or clinical concern, sonography can be added. ASSESSMENT: BI-RADS Category 0: Incomplete- Need Additional Imaging Evaluation and/or Prior Mammograms for Comparison
== END ==
PROVIDERS: PCP Internal Medicine; Visit Provider Internal Medicine
DX: Z12.31 Encounter for screening mammogram for malignant neoplasm of breast (principal)
CPT/HCPCS: 77063; 77067

== ENCOUNTER → 2022-10-24 12:51 | Outpatient (CLI) | payer MEDICARE, SELFPAY ==
--- NOTE | 2022-10-24 13:09 | MM_ITS ---
PROCEDURE INFORMATION: Exam: US Left Breast, Complete MG Right Diagnostic Breast Tomosynthesis Exam date and time: 10/24/2022 1:01 PM Age: 72 years old Clinical indication: Callback for additional assessment of calcifications in the right 9 o'clock middle 1/3 TECHNIQUE: Imaging protocol: Complete ultrasound of all four quadrants of the left breast and the retroareolar regions, including ultrasound of the axilla when performed. Right Diagnostic tomosynthesis and 2D mammography including computer-aided detection (CAD) when performed. Unilateral or bilateral exam. COMPARISON: 1. MG MM DIG SCREENING MAMM BI W/CAD 09/26/2022 1:27 PM 2. MG MM DIG SCREENING MAMM BI W/CAD 08/15/2021 10:30 AM 3. MG MM DIG SCREENING MAMM BI W/CAD 05/20/2020 11:03 AM 4. MG MM DIG MAMM BI DX W/CAD 06/04/2019 2:54 PM FINDINGS: MAMMOGRAPHY: In the upper outer right middle 1/3 there is a grouping of 4 generally benign-appearing punctate calcifications spanning about 1.4 cm. No cluster of microcalcifications has developed. No suspicious linear or branching morphologic features are present There are several stable benign-appearing subcentimeter nodules, incidentally noted ULTRASOUND: Complete breast ultrasound was performed including all 4 quadrants, retroareolar breast and axilla There are several subcentimeter simple and complicated cysts, 1 measuring 4 mm along the 3 o'clock axis, another measuring 6 mm along the 7 o'clock axis No suspicious solid or cystic mass is present. No architectural distortion or shadowing is present. No axillary adenopathy is present. IMPRESSION: No mammographic or sonographic evidence of malignancy. Recommend annual screening mammography unless otherwise clinically indicated. ASSESSMENT: BI-RADS category 2: Benign
== END ==
PROVIDERS: PCP Internal Medicine; Visit Provider Internal Medicine
DX: R92.8 Other abnormal and inconclusive findings on diagnostic imaging of breast (principal); N64.4 Mastodynia
CPT/HCPCS: 76641; 77061; 77065; G0279

== ENCOUNTER → 2022-11-01 12:48 | Outpatient (CLI) | payer MEDICARE, SELFPAY ==
[2022-11-01 16:36] LABS: Basophils # 0.1 K/mm3 (0-0.2); Basophils % 0.6 % (0.1-2.0); Eosinophils # 0.1 K/mm3 (0.0-0.4); Hematocrit 43.3 % (37.0-47.0); Hemoglobin 13.6 g/dL (12.2-16.2); Lymphocytes # 2.5 K/mm3 (0.7-4.5); Lymphocytes % 20.7 % (10-50); Mean Corpuscular HGB Conc 31.5 g/dL (31.8-35.4); Mean Corpuscular Hemoglobin 27.3 pg (27.0-31.2); Mean Corpuscular Volume 86.5 fl (81-99); Mean Platelet Volume 10.6 fl (7.4-10.4); Monocytes # 0.8 K/mm3 (0.1-1.0); Monocytes % 6.7 % (1.7-9.3); Neutrophils # 8.4 K/mm3 (1.8-7.8); Platelet Count 344 K/mm3 (142-424); Red Blood Count 5.01 M/mm3 (4.20-5.40); White Blood Count 11.8 K/mm3 (4.8-10.8)
[2022-11-01 16:44] LABS: Chloride 99 mmol/L (98-107)
[2022-11-01 16:45] LABS: Potassium 4.7 mmoL/L (3.5-5.1); Sodium 137 mmol/L (136-145)
[2022-11-01 16:47] LABS: Alanine Aminotransferase 23 U/L (12-78); Alkaline Phosphatase 49 U/L (38-126); Anion Gap 15.7 mEq/L (5-15); Aspartate Amino Transferase 30 U/L (14-36); Bilirubin,Total 0.3 mg/dl (0.2-1.3); Blood Urea Nitrogen 19 mg/dl (7-17); Carbon Dioxide 27 mmol/L (22.0-30.0); Estimated Glomerular Filt Rate 121 ml/min (>60); GFR (African American) 146 ML/MIN (>60)
[2022-11-01 16:48] LABS: Albumin Level 4.1 g/dl (3.5-5.0); Albumin/Globulin Ratio 1.6 (1.1-1.8); Calcium 8.6 mg/dl (8.4-10.2); Chol/HDL Ratio 3.1 (1-3.5); Cholesterol 107 mg/dl (140-200); Globulin 2.5 g/dL (1.3-3.2); Glucose 100 mg/dl (74-100); HDL Cholesterol 35 mg/dl (40-60); Total Protein,Serum 6.6 g/dl (6.3-8.2); Triglycerides 211 mg/dl (30-150); VLDL Cholesterol 42 mg/dL (0-40)
[2022-11-01 16:59] LABS: Direct LDL Cholesterol 50.87 mg/dL (100-129)
[2022-11-01 17:23] LABS: Ferritin 19.6 ng/ml (11.1-264)
[2022-11-01 19:27] LABS: Creatinine,Urine Random 82 mg/dL (Not Estab.)
== END ==
PROVIDERS: PCP Internal Medicine; Visit Provider Internal Medicine
DX: I25.10 Atherosclerotic heart disease of native coronary artery without angina pectoris (principal); I10 Essential (primary) hypertension; E11.59 Type 2 diabetes mellitus with other circulatory complications; E78.5 Hyperlipidemia, unspecified; F41.9 Anxiety disorder, unspecified; J44.9 Chronic obstructive pulmonary disease, unspecified; Z79.84 Long term (current) use of oral hypoglycemic drugs
CPT/HCPCS: 80053; 80061; 82043; 82570; 82728; 83036; 85025

== ENCOUNTER → 2023-05-01 13:31 | Outpatient (CLI) | payer MEDICARE, SELFPAY ==
[2023-05-01 14:50] LABS: Basophils # 0.1 K/mm3 (0-0.2); Basophils % 0.5 % (0.1-2.0); Eosinophils # 0.2 K/mm3 (0.0-0.4); Eosinophils % 1.7 % (0.1-12.0); Hematocrit 45.1 % (37.0-47.0); Hemoglobin 14.9 g/dL (12.2-16.2); Lymphocytes # 2.2 K/mm3 (0.7-4.5); Lymphocytes % 25.3 % (10-50); Mean Corpuscular Hemoglobin 29.7 pg (27.0-31.2); Mean Corpuscular Volume 90.1 fl (81-99); Mean Platelet Volume 9.8 fl (7.4-10.4); Monocytes # 0.6 K/mm3 (0.1-1.0); Monocytes % 7.2 % (1.7-9.3); Neutrophils # 5.6 K/mm3 (1.8-7.8); Neutrophils % 65.3 % (37.0-80.0); Platelet Count 275 K/mm3 (142-424); Red Blood Count 5.01 M/mm3 (4.20-5.40); Red Cell Distribution Width 14.1 % (11.5-17.5); White Blood Count 8.6 K/mm3 (4.8-10.8)
[2023-05-01 15:43] LABS: Alanine Aminotransferase 26 U/L (12-78); Albumin Level 4.4 g/dl (3.5-5.0); Albumin/Globulin Ratio 1.6 (1.1-1.8); Alkaline Phosphatase 51 U/L (38-126); Anion Gap 14.7 mEq/L (5-15); Aspartate Amino Transferase 31 U/L (14-36); Bilirubin,Total 0.2 mg/dl (0.2-1.3); Blood Urea Nitrogen 16 mg/dl (7-17); Calcium 9.3 mg/dl (8.4-10.2); Carbon Dioxide 30 mmol/L (22.0-30.0); Chloride 99 mmol/L (98-107); Chol/HDL Ratio 3.3 (1-3.5); Cholesterol 131 mg/dl (140-200); Estimated Glomerular Filt Rate 98 ml/min (>60); GFR (African American) 119 ML/MIN (>60); Globulin 2.8 g/dL (1.3-3.2); Glucose 109 mg/dl (74-100); HDL Cholesterol 40 mg/dl (40-60); Potassium 4.7 mmoL/L (3.5-5.1); Sodium 139 mmol/L (136-145); Total Protein,Serum 7.2 g/dl (6.3-8.2); Triglycerides 169 mg/dl (30-150); VLDL Cholesterol 34 mg/dL (0-40)
[2023-05-01 15:54] LABS: Direct LDL Cholesterol 72.89 mg/dL (100-129)
[2023-05-01 22:32] LABS: Hemoglobin A1C 6.5 % (4.0-6.0)
== END ==
PROVIDERS: PCP Internal Medicine; Visit Provider Internal Medicine
DX: E11.59 Type 2 diabetes mellitus with other circulatory complications (principal); I25.10 Atherosclerotic heart disease of native coronary artery without angina pectoris; I10 Essential (primary) hypertension; J44.9 Chronic obstructive pulmonary disease, unspecified; M15.0 Primary generalized (osteo)arthritis; E78.5 Hyperlipidemia, unspecified; D50.9 Iron deficiency anemia, unspecified; Z79.84 Long term (current) use of oral hypoglycemic drugs
CPT/HCPCS: 80053; 80061; 83036; 85025

== ENCOUNTER → 2023-05-02 16:43 | Outpatient (CLI) | payer MEDICARE, SELFPAY ==
[2023-05-02 20:12] LABS: Creatinine,Urine Random 15 mg/dL (Not Estab.); Microalbumin < 6.000 mg/L (0-16.7)
== END ==
PROVIDERS: PCP Internal Medicine; Visit Provider Internal Medicine
DX: E11.59 Type 2 diabetes mellitus with other circulatory complications (principal); Z79.84 Long term (current) use of oral hypoglycemic drugs
CPT/HCPCS: 82043; 82570

== ENCOUNTER 2023-10-31 13:45 | Outpatient (CLI) | payer MEDICARE, SELFPAY ==
[2023-10-31 14:30] LABS: Basophils # 0.1 K/mm3 (0-0.2); Basophils % 0.7 % (0.1-2.0); Eosinophils # 0.2 K/mm3 (0.0-0.4); Eosinophils % 2.5 % (0.1-12.0); Hematocrit 44.1 % (37.0-47.0); Hemoglobin 14.2 g/dL (12.2-16.2); Lymphocytes # 2.1 K/mm3 (0.7-4.5); Lymphocytes % 24.9 % (10-50); Mean Corpuscular HGB Conc 32.2 g/dL (31.8-35.4); Mean Corpuscular Hemoglobin 28.8 pg (27.0-31.2); Mean Corpuscular Volume 89.5 fl (81-99); Mean Platelet Volume 8.4 fl (7.4-10.4); Monocytes # 0.5 K/mm3 (0.1-1.0); Monocytes % 5.7 % (1.7-9.3); Neutrophils # 5.6 K/mm3 (1.8-7.8); Neutrophils % 66.1 % (37.0-80.0); Platelet Count 295 K/mm3 (142-424); Red Blood Count 4.92 M/mm3 (4.20-5.40); Red Cell Distribution Width 14.2 % (11.5-17.5); White Blood Count 8.4 K/mm3 (4.8-10.8)
[2023-10-31 15:05] LABS: Alanine Aminotransferase 26 U/L (12-78); Albumin Level 4.2 g/dl (3.5-5.0); Albumin/Globulin Ratio 1.8 (1.1-1.8); Alkaline Phosphatase 57 U/L (38-126); Anion Gap 14.5 mEq/L (5-15); Aspartate Amino Transferase 31 U/L (14-36); Bilirubin,Total 0.3 mg/dl (0.2-1.3); Blood Urea Nitrogen 19 mg/dl (7-17); Calcium 9.4 mg/dl (8.4-10.2); Carbon Dioxide 28 mmol/L (22.0-30.0); Chloride 103 mmol/L (98-107); Chol/HDL Ratio 3.6 (1-3.5); Cholesterol 145 mg/dl (140-200); Estimated Glomerular Filt Rate 121 ml/min (>60); GFR (African American) 146 ML/MIN (>60); Globulin 2.3 g/dL (1.3-3.2); Glucose 116 mg/dl (74-100); HDL Cholesterol 40 mg/dl (40-60); Potassium 4.5 mmoL/L (3.5-5.1); Sodium 141 mmol/L (136-145); Total Protein,Serum 6.5 g/dl (6.3-8.2); Triglycerides 129 mg/dl (30-150); VLDL Cholesterol 26 mg/dL (0-40)
[2023-10-31 15:16] LABS: Direct LDL Cholesterol 74.93 mg/dL (100-129)
[2023-10-31 18:10] LABS: Hemoglobin A1C 7.3 % (4.0-6.0)
== END 2023-10-31 23:59 | disposition home or self-care (01) ==
LOC: LAB.DROPOF 13:46
PROVIDERS: PCP Internal Medicine; Visit Provider Internal Medicine
DX: E11.59 Type 2 diabetes mellitus with other circulatory complications (principal); I11.9 Hypertensive heart disease without heart failure; I25.10 Atherosclerotic heart disease of native coronary artery without angina pectoris; E78.5 Hyperlipidemia, unspecified; J44.9 Chronic obstructive pulmonary disease, unspecified; D50.9 Iron deficiency anemia, unspecified; R10.9 Unspecified abdominal pain; M15.0 Primary generalized (osteo)arthritis
CPT/HCPCS: 80053; 80061; 83036; 85025

== ENCOUNTER 2023-11-07 09:54 | Outpatient (CLI) | payer MEDICARE, SELFPAY ==
--- NOTE | 2023-11-07 09:58 | MM_ITS ---
PROCEDURE INFORMATION: Exam: MG Bilateral Screening 3D Mammography Exam date and time: 11/07/2023 9:47 AM Age: 73 years old Clinical indication: Screening examination TECHNIQUE: Imaging protocol: Bilateral Screening tomosynthesis and 2D mammography including computer-aided detection (CAD) when performed. COMPARISON: 1. MG MM DIG MAMM DX UNILAT RT CAD 10/24/2022 1:01 PM 2. MG MM DIG SCREENING MAMM BI W/CAD 09/26/2022 1:27 PM FINDINGS: MAMMOGRAPHY: Breast composition: There are scattered areas of fibroglandular density. Mass: No new or suspicious masses. Architectural distortion: No new or suspicious distortion Calcifications: No suspicious calcifications. Asymmetric density: None. Skin thickening: None. Axillary adenopathy: None. IMPRESSION: No mammographic evidence of malignancy. Annual screening is recommended unless otherwise clinically indicated. ASSESSMENT: BI-RADS Category 1: Negative
== END 2023-11-07 23:59 | disposition home or self-care (01) ==
LOC: RAD 09:55
PROVIDERS: PCP Internal Medicine; Visit Provider Internal Medicine
DX: Z12.31 Encounter for screening mammogram for malignant neoplasm of breast (principal)
CPT/HCPCS: 77063; 77067

== ENCOUNTER 2024-04-16 15:05 | Outpatient (CLI) | payer MEDICARE, SELFPAY ==
--- NOTE | 2024-04-16 15:06 | CT_ITS ---
FINAL REPORT TECHNIQUE: Axial imaging of the chest was obtained without contrast. Reformatted images were also obtained and reviewed.This study was performed with techniques to keep radiation doses as low as reasonably achievable, (ALARA). Individualized dose reduction technique using automated exposure control or adjustment of mA and/or kV according to the patient's size were employed. CLINICAL HISTORY: COPD, right lung nodules on shoulder CT scan FINDINGS: There is no axillary adenopathy. There is no hilar or mediastinal mass or adenopathy. Heart size is normal. There is no pericardial or pleural effusion. Limited images of the upper abdomen are unremarkable. There is dense vascular calcification of the abdominal aorta. There is a noncalcified, pleural-based nodule in the medial aspect of the right lower lobe measuring 8 mm in greatest dimension. This is best seen on image 133 of series 3. There is also a noncalcified nodule in the medial left lung base measuring 6 mm seen on image 188 of series 3. IMPRESSION: Bilateral lower lobe nodules measuring up to 8 mm in the medial right lung base. Recommend follow-up CT in 6 months per Fleischner criteria. Reviewed, Interpreted and Dictated by Gabino Zuluaga MD Transcribed by Yaneth Wallace Authenticated and [facility]
== END 2024-04-16 23:59 | disposition home or self-care (01) ==
LOC: RAD 15:06
PROVIDERS: PCP Internal Medicine; Visit Provider Internal Medicine
DX: R91.8 Other nonspecific abnormal finding of lung field (principal)
CPT/HCPCS: 71250

== ENCOUNTER 2024-05-06 15:28 | Outpatient (CLI) | payer MEDICARE, SELFPAY ==
[2024-05-06 14:57] LABS: Alanine Aminotransferase 24 U/L (12-78); Albumin Level 4.2 g/dl (3.5-5.0); Albumin/Globulin Ratio 1.8 (1.1-1.8); Alkaline Phosphatase 47 U/L (38-126); Anion Gap 10.4 mEq/L (5-15); Aspartate Amino Transferase 29 U/L (14-36); Bilirubin,Total 0.4 mg/dl (0.2-1.3); Blood Urea Nitrogen 14 mg/dl (7-17); Calcium 9.2 mg/dl (8.4-10.2); Carbon Dioxide 29 mmol/L (22.0-30.0); Chloride 103 mmol/L (98-107); Chol/HDL Ratio 3.2 (1-3.5); Cholesterol 136 mg/dl (140-200); Estimated Glomerular Filt Rate 121 ml/min (>60); GFR (African American) 146 ML/MIN (>60); Globulin 2.4 g/dL (1.3-3.2); Glucose 131 mg/dl (74-100); HDL Cholesterol 43 mg/dl (40-60); Potassium 4.4 mmoL/L (3.5-5.1); Sodium 138 mmol/L (136-145); Total Protein,Serum 6.6 g/dl (6.3-8.2); Triglycerides 169 mg/dl (30-150); VLDL Cholesterol 34 mg/dL (0-40)
[2024-05-06 15:52] LABS: Creatinine,Urine Random 57 mg/dL (Not Estab.); Microalbumin/Creatinine Ratio 10.8
[2024-05-06 16:17] LABS: Hemoglobin A1C 7.1 % (4.0-6.0)
== END 2024-05-06 23:59 | disposition home or self-care (01) ==
LOC: LAB.DROPOF 15:28
PROVIDERS: PCP Internal Medicine; Visit Provider Internal Medicine
DX: E78.5 Hyperlipidemia, unspecified (principal); E11.59 Type 2 diabetes mellitus with other circulatory complications; I25.10 Atherosclerotic heart disease of native coronary artery without angina pectoris
CPT/HCPCS: 80053; 80061; 82043; 82570; 83036

== ENCOUNTER 2024-06-30 11:31 | Outpatient (CLI) | payer MEDICARE, SELFPAY ==
[2024-07-01 06:10] LABS: Hepatitis C Antibody Non Reactive (Non Reactive)
[2024-07-01 15:16] LABS: Antinuclear Antibodies, IFA Negative (.)
[2024-07-02 18:13] LABS: QuantiFERON-TB Gold Plus Negative (Negative)
== END 2024-06-30 23:59 | disposition home or self-care (01) ==
PROVIDERS: PCP Internal Medicine; Visit Provider Dermatology
DX: M79.3 Panniculitis, unspecified (principal)
CPT/HCPCS: 36415; 86038; 86480; 87380

== ENCOUNTER 2024-08-12 08:51 | Outpatient (CLI) | payer MEDICARE, SELFPAY ==
[2024-08-12 16:09] LABS: Chloride 98 mmol/L (98-107); Potassium 4.7 mmoL/L (3.5-5.1); Sodium 138 mmol/L (136-145)
[2024-08-12 16:12] LABS: Anion Gap 16.7 mEq/L (5-15); Blood Urea Nitrogen 15 mg/dl (7-17); Carbon Dioxide 28 mmol/L (22.0-30.0); Estimated Glomerular Filt Rate 120 ml/min (>60); GFR (African American) 146 ML/MIN (>60); Glucose 130 mg/dl (74-100)
== END 2024-08-12 23:59 | disposition home or self-care (01) ==
LOC: LAB.DROPOF 08-13 08:51
PROVIDERS: PCP Internal Medicine; Visit Provider Internal Medicine
DX: E11.42 Type 2 diabetes mellitus with diabetic polyneuropathy (principal); E11.59 Type 2 diabetes mellitus with other circulatory complications; I10 Essential (primary) hypertension
CPT/HCPCS: 36415; 80048

== ENCOUNTER 2024-10-07 19:17 | Emergency (ER) | payer MEDICARE, SELFPAY ==
[2024-10-07 19:21] VITALS: BP 124/56; PULSE 73; RESP 18; TEMP 36.7; O2SAT 95; BMI 30.9
--- NOTE | 2024-10-07 19:42 | PC.NURSE ---
report given to Celio Ruvalcaba RN
--- NOTE | 2024-10-07 19:50 | CT_ITS ---
PROCEDURE INFORMATION: Exam: CT Head Without Contrast Exam date and time: 10/07/2024 8:07 PM Age: 74 years old Clinical indication: Injury or trauma; Additional info: Fall, head trauma TECHNIQUE: Imaging protocol: Computed tomography of the head without contrast. Total images: 542 Radiation optimization: All CT scans at this facility use at least one of these dose optimization techniques: automated exposure control; mA and/or kV adjustment per patient size (includes targeted exams where dose is matched to clinical indication); or iterative reconstruction. COMPARISON: No relevant prior studies available. FINDINGS: Brain: No acute intracranial hemorrhage, midline shift, or mass. Mild to moderate cortical atrophy and remote white matter small-vessel ischemic changes. No acute territorial infarct. Basilar cisterns are preserved. Cerebral ventricles: No ventriculomegaly. Paranasal sinuses: Visualized sinuses are unremarkable. No fluid levels. Mastoid air cells: Visualized mastoid air cells are well aerated. Orbital cavities: Bilateral orbital lens replacement. Bones: Osteopenia. Mild hyperostosis of the frontal calvarium. No skull fracture. Soft tissues: Unremarkable. Vasculature: Severe calcifications bilateral intracranial internal carotid arteries. Moderate calcification right intracranial vertebral artery. IMPRESSION: 1. No acute intracranial process. 2. Chronic findings.
--- NOTE | 2024-10-07 19:50 | CT_ITS ---
PROCEDURE INFORMATION: Exam: CT Thoracic Spine Without Contrast Exam date and time: 10/07/2024 8:12 PM Age: 74 years old Clinical indication: Injury or trauma; Additional info: Fall/trauma TECHNIQUE: Imaging protocol: Computed tomography of the thoracic spine without contrast. Total images: 372 Radiation optimization: All CT scans at this facility use at least one of these dose optimization techniques: automated exposure control; mA and/or kV adjustment per patient size (includes targeted exams where dose is matched to clinical indication); or iterative reconstruction. COMPARISON: CT CERVICAL SPINE WO CON 10/07/2024 8:10 PM FINDINGS: Bones/joints: Osteopenia. Maintained thoracic kyphosis. Minor levocurvature upper thoracic spine. Vertebral body height and alignment is preserved. The facet joints are appropriately aligned with mild multilevel degenerate facet joint spondylosis, greatest at lower thoracic levels. T9 vertebral body hemangioma. Minor multilevel degenerate endplate changes. Mild multilevel degenerative disc disease greatest at T11-T12. No large disc herniation or critical spinal canal stenosis. Posterior elements and bilateral costovertebral joints are maintained. Soft tissues: No paraspinal mass, fluid, or edema. Unremarkable soft tissues. Vasculature: Mildly atherosclerotic thoracic aorta. Severely atherosclerotic abdominal aorta. Lungs: Bilateral dependent atelectasis. 9 mm noncalcified right lower lobe nodule, axial image 72 series 3. Heart: Small pericardial effusion. Coronary arteries: Severe coronary artery calcifications. IMPRESSION: 1. No acute thoracic fracture or traumatic subluxation. 2. 9 mm noncalcified right lower lobe nodule. For both low risk and high risk patients, consider CT Chest at 3 months, PET/CT or biopsy. (Reference: Oscar) 3. Small pericardial effusion 4. Mild degenerative changes of the thoracic spine 5. Severe coronary artery calcifications. REFERENCES: Oscar Ramirez et al. Guidelines for Management of Incidental Pulmonary Nodules Detected on CT Images: From the Fleischner Society 2017. Radiology. 2017;284(1):228-243.
--- NOTE | 2024-10-07 19:50 | CT_ITS ---
PROCEDURE INFORMATION: Exam: CT Cervical Spine Without Contrast Exam date and time: 10/07/2024 8:10 PM Age: 74 years old Clinical indication: Injury or trauma; Additional info: *fall/trauma TECHNIQUE: Imaging protocol: Computed tomography of the cervical spine without contrast. Total images: 302 Radiation optimization: All CT scans at this facility use at least one of these dose optimization techniques: automated exposure control; mA and/or kV adjustment per patient size (includes targeted exams where dose is matched to clinical indication); or iterative reconstruction. COMPARISON: CT HEAD/BRAIN WO CON 10/07/2024 8:07 PM FINDINGS: Bones: Osteopenia. Straightened cervical lordosis with minor broad-based dextrocurvature. Vertebral body height and alignment is preserved. Attenuation artifact compromising detail at lower levels. Base of the dens and the C1 and C2 articulations are maintained. The cervicooccipital junction is intact. The facet joints are appropriately aligned. Unremarkable posterior elements. Moderate degenerative disc disease C5-C6. Mild degenerative disc disease C4-C5 and C6-C7. Mild acquired spinal canal stenosis C5-C6 secondary to posterior projecting disc osteophyte complex. Mild bilateral neural foraminal encroachment C5-C6. Spinal canal contents are obscured by attenuation artifact. No concerning bone lesions. Lungs: Mild bilateral upper lobe centrilobular emphysema. Vasculature: Mildly atherosclerotic aortic arch. Mild to moderate calcifications bilateral carotid arteries. Retropharyngeal course of the left common carotid artery is a normal variant. Soft tissues: No prevertebral soft tissue swelling. Unremarkable soft tissues of the neck. IMPRESSION: 1. No acute cervical fracture or traumatic subluxation. 2. Straightened lordosis with minor dextrocurvature from position or muscle spasm. 3. Moderate degenerative disc disease C5-C6. 4. Additional chronic findings.
--- NOTE | 2024-10-07 19:50 | XR_ITS ---
PROCEDURE INFORMATION: Exam: XR Left Femur Exam date and time: 10/07/2024 8:20 PM Age: 74 years old Clinical indication: Injury or trauma; Fall; Blunt trauma; Thigh or upper leg; Left; Additional info: Fall, left hip pain TECHNIQUE: Imaging protocol: Radiologic exam of the left femur. Views: 2 views. Total images: 4 COMPARISON: CT BONY PELVIS 10/07/2024 8:17 PM FINDINGS: Bones/joints: Osteopenia. No acute fracture or joint dislocation. Joint spaces are appropriate for age. No concerning bone lesions or calcifications. No suprapatellar joint effusion. Tiny patellar enthesophyte at the quadriceps tendon insertion. Soft tissues: Possible mild soft tissue swelling anterior to the distal femur. Intraperitoneal space: Included left hemipelvis is unremarkable. IMPRESSION: 1. Negative left femur. 2. Possible mild soft tissue swelling anterior to the distal femur.
--- NOTE | 2024-10-07 19:50 | CT_ITS ---
PROCEDURE INFORMATION: Exam: CT Lumbar Spine Without Contrast Exam date and time: 10/07/2024 8:15 PM Age: 74 years old Clinical indication: Injury or trauma; Additional info: Fall/trauma TECHNIQUE: Imaging protocol: Computed tomography of the lumbar spine without contrast. Radiation optimization: All CT scans at this facility use at least one of these dose optimization techniques: automated exposure control; mA and/or kV adjustment per patient size (includes targeted exams where dose is matched to clinical indication); or iterative reconstruction. COMPARISON: No relevant prior studies available. FINDINGS: Bones/joints: Osseous alignment is normal. No vertebral body compression or acute fracture. Severe disc space narrowing with moderate disc bulge and uncovertebral spurring at the lumbosacral junction. There is moderate narrowing of the bilateral L5 neural foramina. Mild multilevel disc bulge throughout the remainder of the lumbar spine. Vasculature: Dense atherosclerotic calcification throughout the distal aorta. No aneurysm. Soft tissues: Unremarkable. IMPRESSION: No acute abnormality. Chronic findings as noted.
--- NOTE | 2024-10-07 19:50 | XR_ITS ---
PROCEDURE INFORMATION: Exam: XR Chest Exam date and time: 10/07/2024 8:20 PM Age: 74 years old Clinical indication: Injury or trauma; Fall; Blunt trauma (contusions or hematomas); Additional info: Fall/trauma TECHNIQUE: Imaging protocol: Radiologic exam of the chest. Views: 1 view. Total images: 1 COMPARISON: CT THORACIC SPINE WO CON 10/07/2024 8:12 PM FINDINGS: Lungs: Unremarkable. No consolidation. No pulmonary vascular congestion or edema. Pleural spaces: Unremarkable. No pleural effusion. No pneumothorax. Heart/Mediastinum: Unremarkable. No cardiomegaly. No mediastinal widening or hilar enlargement. Vasculature: Atherosclerotic aortic arch. Bones/joints: Surgical screw left glenoid. Right humeral head replacement. Osteopenia. Soft tissues: Breast attenuation artifact. IMPRESSION: No radiographically acute cardiopulmonary process.
--- NOTE | 2024-10-07 19:50 | XR_ITS ---
PROCEDURE INFORMATION: Exam: XR Pelvis Exam date and time: 10/07/2024 8:20 PM Age: 74 years old Clinical indication: Injury or trauma; Fall; Blunt trauma (contusions or hematomas); Bilateral; Hip; Additional info: Fall/trauma TECHNIQUE: Imaging protocol: Radiologic exam of the pelvis. Views: 1 or 2 view. Total images: 1 COMPARISON: CT BONY PELVIS 10/07/2024 8:17 PM FINDINGS: Bones/joints: No acute fracture or joint dislocation. Pelvic ring is maintained. Age-appropriate bilateral hips joints. Proximal femurs are intact. No widening of the pubic symphysis or sacroiliac joints. No concerning bone lesions. Mild osteopenia. Soft tissues: Unremarkable soft tissues. Gastrointestinal tract: Nonobstructive bowel gas pattern. IMPRESSION: Negative pelvic radiograph.
--- NOTE | 2024-10-07 19:52 | XR_ITS ---
PROCEDURE INFORMATION: Exam: XR Left Forearm Exam date and time: 10/07/2024 8:20 PM Age: 74 years old Clinical indication: Injury or trauma; Fall; Blunt trauma (contusions or hematomas); Arm, lower; Left; Additional info: Fall/trauma TECHNIQUE: Imaging protocol: Radiologic exam of the left forearm. Views: 2 views. Total images: 2 COMPARISON: CR XR ELBOW LT MIN 3V 10/07/2024 8:20 PM FINDINGS: Bones/joints: Osteopenia. No acute fracture or joint dislocation. Remote deformity distal radial metaphysis. Mild narrowing radiocarpal joint. Partially visualized moderate degenerative change STT joint. Unremarkable elbow. No concerning bone lesions. Soft tissues: Unremarkable soft tissues. IMPRESSION: 1. No acute osseous abnormality. 2. Remote healed deformity distal radial metaphysis 3. Degenerative changes of the wrist.
--- NOTE | 2024-10-07 19:53 | XR_ITS ---
PROCEDURE INFORMATION: Exam: XR Left Elbow Exam date and time: 10/07/2024 8:20 PM Age: 74 years old Clinical indication: Injury or trauma; Fall; Blunt trauma (contusions or hematomas); Elbow; Left; Additional info: Fall/trauma TECHNIQUE: Imaging protocol: Radiologic exam of the left elbow. Views: 3 or more views. Total images: 3 COMPARISON: CR XR FOREARM LT 2V 10/07/2024 8:20 PM FINDINGS: Bones/joints: Osteopenia. No acute fracture, joint dislocation, or joint effusion. No concerning bone lesions or calcifications. Unremarkable joint spaces. Soft tissues: Unremarkable soft tissues. IMPRESSION: Negative left elbow.
--- NOTE | 2024-10-07 19:54 | ED_ITS ---
<Statement entered by Janay Meyer DO - 10/07/24 23:44> I was consulted by the AIMEE, and we discussed the complexity of the problems being addressed. I approved the treatment and management plan for this patient's care in the emergency department, thus performing a substantive portion of the medical decision making. Janay Meyer DO Discharge Plan Disposition Patient Disposition: Home, Self-Care Condition: Good Prescriptions Prescriptions: No Action duloxetine 30 mg capsule,delayed release(DR/EC) PO Patient Comments: TAKE 1 CAPSULE BY MOUTH EVERY DAY lisinopril 10 mg tablet 10 mg PO DAILY Patient Comments: TAKE 1 TABLET BY MOUTH DAILY oxycodone-acetaminophen 10-325 mg tablet 1 tab PO TID PRN Patient Comments: TAKE 1 TABLET BY MOUTH THREE TIMES DAILY NEEDED Anoro Ellipta 62.5-25 mcg/actuation blister with device 1 inh inhalation ONCE PRN Patient Comments: INHALE 1 PUFF BY MOUTH DAILY clobetasol 0.05 % cream topical diclofenac sodium 1 % gel topical Patient Comments: APPLY 2 TO 4 GRAMS TOPICALLY TO AREA OF PAIN 4 TIMES DAILY (DME) OneTouch Ultra Test Strip See Rx Instructions .ROUTE .MEDSUPPLY Qty: 10 Patient Comments: USE 1 STRIP TO CHECK GLUCOSE ONCE DAILY Rx Instructions: As directed nitroglycerin 0.4 mg tablet, sublingual 0.4 mg sublingual PRN pantoprazole 40 mg tablet,delayed release (DR/EC) See Rx Instructions .ROUTE .COMPLEX Qty: 90 1RF Dose Instruction: TAKE 1 TABLET BY MOUTH DAILY Rx Instructions: TAKE 1 TABLET BY MOUTH DAILY pravastatin 40 mg tablet 40 mg PO DAILY Qty: 90 1RF pregabalin 100 mg capsule 100 mg PO BID Qty: 180 1RF glimepiride 2 mg tablet 2 mg PO DAILY Qty: 90 1RF empagliflozin 10 mg tablet 10 mg PO DAILY Qty: 90 1RF duloxetine 60 mg capsule,delayed release(DR/EC) 60 mg PO DAILY Qty: 90 1RF cyanocobalamin (vitamin B-12) 1,000 mcg tablet See Rx Instructions .ROUTE .COMPLEX Qty: 90 1RF Dose Instruction: TAKE 1 TABLET BY MOUTH DAILY Rx Instructions: TAKE 1 TABLET BY MOUTH DAILY metformin 1,000 mg tablet 1,000 mg PO BIDWMEAL Qty: 180 1RF verapamil 100 mg capsule, [address] See Rx Instructions .ROUTE .COMPLEX Qty: 90 1RF Dose Instruction: TAKE 1 CAPSULE BY MOUTH AT BEDTIME FOR BLOOD PRESSURE AND HEART Rx Instructions: TAKE 1 CAPSULE BY MOUTH AT BEDTIME FOR BLOOD PRESSURE AND HEART trazodone 100 mg tablet 100 mg PO HS Qty: 30 1RF clonazepam 1 mg tablet 1 mg PO TID PRN (Reason: anxiety) Qty: 90 2RF montelukast 10 mg tablet See Rx Instructions .ROUTE .COMPLEX Qty: 90 1RF Dose Instruction: TAKE 1 TABLET BY MOUTH DAILY IN THE EVENING NEEDED FOR ALLERGIES Rx Instructions: TAKE 1 TABLET BY MOUTH DAILY IN THE EVENING NEEDED FOR ALLERGIES ferrous sulfate [FeroSul] 325 mg (65 mg iron) tablet See Rx Instructions .ROUTE .COMPLEX Qty: 180 1RF Dose Instruction: TAKE 1 TABLET BY MOUTH TWICE DAILY Rx Instructions: TAKE 1 TABLET BY MOUTH TWICE DAILY Referrals Follow up/Referrals: Nick Osborne MD [Primary Care Provider] - See instructions Activity Restrictions/Add. Instructions Additional Instructions/Restrictions: Please return to the emergency department any worsening signs or symptoms. Follow-up with your PCP, continue take all medications as directed. Clinical Impressions Clinical Impression: Accident due to mechanical fall without injury, Chronic low back pain with sciatica, Primary generalized (osteo)arthritis Instructions Patient Instructions: How to Prevent Falls, DI for Hip Pain Print Language Print Language: Tunisian Discharge ED Provider: Janay Meyer General Adult HPI General Chief complaint: Fall Stated complaint: AO 10/07/24 1800 injury left arm,hip Time Seen by Provider: 10/07/24 19:35 Mode of Arrival: Wheelchair Source of Information: Patient Description of Symptoms (Recalled from ER Triage Doc. by RN): Pt to ED with c/o fallling around 6pm tonight. pt reports her knees gave out. Denies any sx before fall. Pt states she fell backwards. She hit the back of her head. no hematoma noted. GCS 15. Not on blood thinners. No LOC. Pt is c/o left hip and left arm pain. Pt took percocet 10 @4pm at home. History of Present Illness HPI narrative: 74-year-old female presents to the emergency department accompanied by her family members for what sounds a mechanical fall, patient dates at approximately 6 PM, he was walking through her living room when she felt like my knees gave out on me , falling backward striking her head, no LOC, patient not any anticoagulant therapy, patient has history of osteoarthritis, status post right and left shoulder repairs, RICE be most recent, as well as arthritis of the spine. Patient denies any presyncopal or syncopal episode, denies dizziness, denies headache, [place] any blurry vision, denies fever chills chest pain shortness of breath, nausea vomiting abdominal pain does not constipation, denies diarrhea, denies urinary type symptomatology. Patient complains of left forearm pain, left elbow pain, as well as left hip/leg pain. He is diabetic polyneuropathy endorses numbness tingling to both bilateral lower extremities, as well as some sciatica/lumbar to colopathy on the right side which is chronic for her. Other past medical history consistent with hypertension, type 2 diabetes, pulmonary nodules, COPD, CAD, hyperlipidemia, anxiety/depression. Patient denies any current alcohol or drug use, distress vitals unremarkable. Patient took a Percocet 10mg around 4 PM at home, this is her normal pain medication as prescribed at home. Onset (ago): hour(s) Related Data Home Medications ?Medication ?Instructions ?Recorded ?Confirmed blood sugar diagnostic (OneTouch #10 ea 02/05/24 08/12/24 Ultra Test strips) diclofenac sodium 1 % topical gel topical 02/05/24 08/12/24 nitroglycerin 0.4 mg sublingual 0.4 mg sublingual PRN 02/05/24 08/12/24 tablet duloxetine 30 mg capsule,delayed mg PO 05/06/24 08/12/24 release lisinopril 10 mg tablet 10 mg PO DAILY 05/06/24 08/12/24 oxycodone-acetaminophen 10 mg-325 1 tab PO TID PRN 05/06/24 08/12/24 mg tablet umeclidinium 62.5 mcg-vilanterol 1 inh inhalation ONCE PRN 05/06/24 08/12/24 25 mcg/actuation powdr for inhalation (Anoro Ellipta) clobetasol 0.05 % topical cream topical 05/29/24 08/12/24 Previous Rx's ?Medication ?Instructions ?Recorded pantoprazole 40 mg tablet,delayed See Rx Instructions .Route 03/06/24 release .COMPLEX #90 tabs pravastatin 40 mg tablet 40 mg PO DAILY Cholesterol #90 tabs 03/27/24 pregabalin 100 mg capsule 100 mg PO BID #180 caps 04/15/24 glimepiride 2 mg tablet 2 mg PO DAILY Diabetes #90 tabs 04/21/24 empagliflozin 10 mg tablet 10 mg PO DAILY Diabetes #90 tabs 04/30/24 duloxetine 60 mg capsule,delayed 60 mg PO DAILY Depression #90 caps 05/12/24 release cyanocobalamin (vitamin B-12) See Rx Instructions .Route 07/15/24 1,000 mcg tablet .COMPLEX #90 tabs metformin 1,000 mg tablet 1,000 mg PO BIDWMEAL Diabetes #180 07/25/24 tabs verapamil 100 mg capsule 24hr See Rx Instructions .Route 07/31/[address],ext.release .COMPLEX #90 caps trazodone 100 mg tablet 100 mg PO HS #30 tabs 08/29/24 clonazepam 1 mg tablet 1 mg PO TID PRN anxiety #90 tabs 09/11/24 montelukast 10 mg tablet See Rx Instructions .Route 09/25/24 .COMPLEX #90 tabs ferrous sulfate 325 mg (65 mg See Rx Instructions .Route 10/07/24 iron) tablet (FeroSul) .COMPLEX #180 tabs Allergies Allergy/AdvReac Type Severity Reaction Status Date / Time codeine (CODEINE) Allergy Unknown FACIAL Verified 08/12/24 08:41 ITCHING hydrocodone (HYDROCODONE) Allergy Unknown ITCHING Verified 08/12/24 08:41 [facility] Disclaimer: The information contained in this section may have been updated after the patient was seen, as this information can be updated by other users. Social History Smoking Status: Former smoker tobacco type: cigarettes packs per day: 1 second hand exposure: No alcohol intake: never substance use type: denies use current occupational status: retired Travel in the last 8 weeks: None household members: spouse housing: house current occupational exposures/hazards: No caffeine: Yes Have you lived/traveled outside [place] in past 30 days?: No Contact w/someone who lives/traveled outside [place] past 30 days?: No Exposure to someone with infectious disease in past 14 days?: No Do you have a fever (greater than 100.4 F or 38 C)?: No Have you tested positive for COVID-19: No Exposed to someone with COVID-19 in past 14 days?: No Do you have a sore throat?: No Do you have a cough?: No Do you have any weakness?: No Do you have any diarrhea?: No Are you experiencing any unusual bleeding?: No Do you have any muscle aches/pain?: No Do you have any abdominal pain?: No Are you experiencing loss of taste or smell?: No Other Medical History Have you received the Flu Vaccine for this season: Yes Have you received the Pneumonia Vaccine: Yes ROS Obtained: Yes All systems reviewed & no additional complaints except as documented Physical Exam General General appearance: alert and in no apparent distress Head Head exam: atraumatic, normocephalic and other (No traumatic hematoma or superficial scalp hematoma is noted.) Eye Eye exam: Present PERRL and EOMI ENT ENT exam: Present mucous membranes moist Neck Neck exam: Present normal inspection and other (There is no cervical paraspinal or spinal tenderness palpation.) Chest Chest inspection: Present normal inspection and symmetric chest wall rise Respiratory Respiratory exam: Present normal lung sounds bilaterally; Absent respiratory distress Cardiovascular Cardiovascular exam: Present regular rate and normal rhythm Abdominal Exam Abdominal exam: Present soft; Absent tenderness, guarding, rebound or rigidity Extremities Exam Extremities exam: Present normal inspection, tenderness and other (There is some mild soft tissue swelling/hematoma/ecchymosis noted over the patient's volar forearm and elbow region, as well as some pain to palpation of those areas as well, patient otherwise moves extremities to command, otherwise neurovascular intact, good favor maker strength bilaterally, patient does ); Absent full ROM Back Exam Back exam: Present tenderness and paraspinal tenderness; Absent vertebral tenderness Comment: There is negative C-spine tenderness to palpation paraspinally spinally, negative T-spine paraspinal tenderness to palpation spinally and paraspinally, there is positive paraspinal tenderness palpation of the lower lumbar spine, denies any spinal lumbar tenderness to palpation, patient has 5 out of 5 strength in bilateral lower and upper extremities, no gross sensation deficit, Neurological Exam Neurological exam: Present alert and oriented X3 Psychiatric Psychiatric exam: Present normal affect Skin Skin exam: Present warm and dry Medical Decision Making Medical Records Medical records reviewed: Yes I reviewed the patient's medical records. Screening: Per USPSTF and CDC recommendations, given the prevalence of disease in our region, it is our hospital?s policy to screen for HIV and viral Hepatitis for all patients aged 18 and over and those with ongoing risk factors. Billy Inquiry Pt receiving controlled substance: No Billy was queried for this patient: No Vital Signs: 10/07/24 19:21 Temperature 98.1 F Temperature Source Oral Pulse Rate [Right Radial] 73 Respiratory Rate 18 Blood Pressure [Right Arm] 124/56 L Blood Pressure Mean [Right Arm] 78 Blood Pressure Source [Right Arm] Automatic Cuff Blood Pressure Position [Right Arm] Sitting 02 Sat by Pulse Oximetry 95 Oxygen Delivery Method Room Air Orders (Tests/Meds): ORDERS Category Date Time Status CT bony pelvis Stat Cat Scan 10/07/24 19:[address] cervical spine wo con Stat Cat Scan 10/07/24 19:[address] head/brain wo con Stat Cat Scan 10/07/24 19:[address] lumbar spine wo con Stat Cat Scan 10/07/24 19:[address] thoracic spine wo con Stat Cat Scan 10/07/24 19:50 Completed Femur XR left 2 views [XR femur LT 2V] Stat Exams 10/07/24 19:50 Completed Pelvis XR 1-2 views [XR pelvis 1-2V] Stat Exams 10/07/24 19:50 Completed XR chest portable Stat Exams 10/07/24 19:50 Completed XR elbow LT min 3V Stat Exams 10/07/24 19:53 Completed XR forearm LT 2V Stat Exams 10/07/24 19:52 Completed Medical Decision Narrative: 74-year-old female presents emergency department with a fall, differential diagnose, limited to hip fracture, intertrochanteric bursitis, osteoarthritis, superficial scalp hematoma, soft tissue injury, acute SDH, traumatic SAH, acute lumbar sacral strain, C-spine fracture, T-spine fracture, L-spine fracture, forearm fracture, forearm sprain/strain, elbow fracture, elbow sprain/strain. I discussed case patient with attending physician Dr. Meyer Will obtain CT cervical spine without contrast, CT head without contrast, CT lumbar without contrast CT thoracic brain without contrast, chest x-ray pelvic x-ray, left elbow x-ray left forearm x-ray, left femur x-ray for further evaluation of characterization, I offered laboratory studies in the patient family, patient family denied at this time would like to pursue imaging as this is a mechanical fall, shared decision-making was utilized. Reviewed the patient's CT head without contrast on the corresponding radiologic report, no acute intracranial process, chronic findings. The patient CT cervical spine without contrast along the corresponding radiologic report, no acute cervical fracture or traumatic subluxation, straightening lordosis with minor dextrocurvature from positioning or muscle spasm moderate degenerative disc disease at C5-C6, additional chronic findings. Reviewed the patient's pelvic x-ray along the corresponding radiologic report, negative pelvic radiograph. I reviewed the patient's femur x-ray on the left along the corresponding radiologic report, negative left femur, possible mild soft tissue swelling of the anterior the distal femur. I reviewed the patient's left elbow x-ray along the corresponding radiologic report, negative left elbow x-ray. I reviewed the patient's chest x-ray along the corresponding radiologic report, no radiographic acute cardiopulmonary process. I reviewed the patient's left forearm x-ray along the corresponding radiologic report, no acute osseous abnormality, remote healed deformity distal radial metaphysis, degenerative change of the wrist. I reviewed the patient's CT lumbar spine without contrast on the corresponding radiologic report no acute abnormality chronic findings as noted I reviewed the patient's CT pelvis without contrast on the corresponding radiologic report, no acute pelvic or hip fracture, severe colonic diverticulosis, moderate colonic and rectal stool burden/constipation, additional chronic findings. Discussed all results with the patient family bedside, patient is feeling better after her fall, she has p.o. pain medication as needed at home, did offer a dose of analgesia prior to discharging of the emergency department. Patient denied at this time would like to pursue outpatient analgesia/at home analgesia. Gave patient strict ED return precautions, fall precautions, patient will follow with PCP and other providers as directed, patient had no dizziness, no lightheadedness, no signs or symptoms syncopal episode believe this more of a mechanical fall, once again did offer laboratory studies for further evaluation, patient denied at this time. Shared decision-making was utilized. Patient and family voiced understanding of the current treatment plan/discharge plan. Critical Care Critical Care Time Critical Care Time: No
--- NOTE | 2024-10-07 19:55 | CT_ITS ---
PROCEDURE INFORMATION: Exam: CT Pelvis Without Contrast, Skeleton Exam date and time: 10/07/2024 8:17 PM Age: 74 years old Clinical indication: Injury or trauma; Additional info: Hip pain TECHNIQUE: Imaging protocol: Computed tomography of the pelvis without contrast. Exam focused on the skeleton. Total images: [id number] Radiation optimization: All CT scans at this facility use at least one of these dose optimization techniques: automated exposure control; mA and/or kV adjustment per patient size (includes targeted exams where dose is matched to clinical indication); or iterative reconstruction. COMPARISON: CT LUMBAR SPINE WO CON 10/07/2024 8:15 PM FINDINGS: Intestine: Moderate colonic and rectal stool burden. Severe diverticulosis of the sigmoid and descending colon without acute diverticulitis. Included small bowel segments are unremarkable. Vasculature: Severely atherosclerotic distal abdominal aorta. Pelvic phleboliths. Reproductive: Status post hysterectomy. No pelvic mass. Urinary bladder: Moderate bladder distension. Bones/joints: Osteopenia. No acute pelvic or hip fracture. Age-appropriate bilateral hips without significant degenerative arthropathy. Unremarkable proximal femurs. Incidental sclerotic bone island left femoral head. Pelvic ring is preserved. No widening of the pubic symphysis or sacroiliac joints. Moderate degenerative disc disease L5-S1. Sacrococcygeal alignment is maintained. No concerning bone lesions. Soft tissues: Unremarkable soft tissues. IMPRESSION: 1. No acute pelvic or hip fracture. 2. Severe colonic diverticulosis. 3. Moderate colonic and rectal stool burden/constipation. 4. Additional chronic findings.
--- NOTE | 2024-10-07 20:10 | PC.NURSE ---
Pt left room to CT
--- NOTE | 2024-10-07 20:30 | PC.NURSE ---
pt back to room from CT
[2024-10-07 21:18] VITALS: BP 124/72; PULSE 77; RESP 20; TEMP 36.9; O2SAT 94
== END 2024-10-07 21:24 | disposition home or self-care (01) ==
PROVIDERS: Emergency Provider Emergency Medicine; PCP Internal Medicine
DX: M15.9 Polyosteoarthritis, unspecified (principal); M47.892 Other spondylosis, cervical region; I25.10 Atherosclerotic heart disease of native coronary artery without angina pectoris; E11.42 Type 2 diabetes mellitus with diabetic polyneuropathy; J44.9 Chronic obstructive pulmonary disease, unspecified; E78.5 Hyperlipidemia, unspecified; M25.522 Pain in left elbow; M25.551 Pain in right hip; M79.604 Pain in right leg; M79.631 Pain in right forearm; I10 Essential (primary) hypertension; R91.1 Solitary pulmonary nodule; F41.9 Anxiety disorder, unspecified; F32.A Depression, unspecified; K57.90 Diverticulosis of intestine, part unspecified, without perforation or abscess without bleeding; S50.12XA Contusion of left forearm, initial encounter; K59.00 Constipation, unspecified; W18.39XA Other fall on same level, initial encounter; Y93.01 Activity, walking, marching and hiking; Z88.5 Allergy status to narcotic agent; Z87.891 Personal history of nicotine dependence
CPT/HCPCS: 70450; 71045; 72125; 72128; 72131; 72170; 72192; 73080; 73090; 73552; 99285

== ENCOUNTER 2024-11-11 15:15 | Outpatient (CLI) | payer MEDICARE, SELFPAY ==
[2024-11-11 12:17] LABS: Basophils # 0.1 K/mm3 (0-0.2); Basophils % 0.6 % (0.1-2.0); Eosinophils # 0.2 Kmm3 (0.0-0.4); Eosinophils % 2.1 % (0.1-12.0); Hematocrit 45.9 % (37.0-47.0); Hemoglobin 14.5 g/dL (12.2-16.2); Lymphocytes # 2.1 K/mm3 (0.7-4.5); Lymphocytes % 25.1 % (10-50); Mean Corpuscular HGB Conc 31.6 g/dL (31.8-35.4); Mean Corpuscular Hemoglobin 27.9 pg (27.0-31.2); Mean Corpuscular Volume 88.3 fl (81-99); Mean Platelet Volume 10.5 fl (7.4-10.4); Monocytes # 0.6 K/mm3 (0.1-1.0); Neutrophils # 5.3 K/mm3 (1.8-7.8); Nucleated Red Blood Cells # 0 10^3/uL; Nucleated Red Blood Cells % 0 %; Platelet Count 283 K/mm3 (142-424); Red Cell Distribution Width 14.7 % (11.5-17.5); Red Cell Distribution Width-SD 47.6 fL; White Blood Count 8.2 K/mm3 (4.8-10.8)
[2024-11-11 12:43] LABS: Alanine Aminotransferase 20 U/L (12-78); Albumin Level 4.3 g/dl (3.5-5.0); Albumin/Globulin Ratio 1.7 (1.1-1.8); Alkaline Phosphatase 55 U/L (38-126); Anion Gap 10.7 mEq/L (5-15); Aspartate Amino Transferase 24 U/L (14-36); Bilirubin,Total 0.4 mg/dl (0.2-1.3); Blood Urea Nitrogen 15 mg/dl (7-17); Calcium 9.3 mg/dl (8.4-10.2); Carbon Dioxide 31 mmol/L (22.0-30.0); Chloride 105 mmol/L (98-107); Chol/HDL Ratio 2.8 (1-3.5); Cholesterol 148 mg/dl (140-200); Estimated Glomerular Filt Rate 97 ml/min (>60); GFR (African American) 118 ML/MIN (>60); Globulin 2.6 g/dL (1.3-3.2); Glucose 131 mg/dl (74-100); HDL Cholesterol 52 mg/dl (40-60); Potassium 4.7 mmoL/L (3.5-5.1); Sodium 142 mmol/L (136-145); Total Protein,Serum 6.9 g/dl (6.3-8.2); Triglycerides 140 mg/dl (30-150); VLDL Cholesterol 28 mg/dL (0-40)
[2024-11-11 12:55] LABS: Direct LDL Cholesterol 69.94 mg/dL (100-129)
[2024-11-11 15:09] LABS: Hemoglobin A1C 6.7 % (4.0-6.0)
--- OUTSIDE RECORDS SUMMARY | 2024-11-11 15:18 | XMS_ITS | Clinical Summary ---
Author Organization [facility] , [facility] Address [address] [place] [address] Phone Care Team Providers Care Coke Oven Patcher Name Role Phone Ron TORRES, Wyatt Ko Unavailable Unavail able ORAL TORRES, FLORIDA Molina Unavailable [phone] Reason for Visit and Chief Complaint The Chief Complaint is: Right shoulder pain Problems Includes: Problems addressed during this encounter and other active Problems All Visits Onset Date Resolved Date Provider Condition S tatus Joint Pain, Localized in the Right Shoulder 02/29/2024 Christi Lazo PA-C Active Last Documented On 9:10AM ; [facility] Plan of Treatment Fall Risk Assessment: This patient has been identified as a fall risk. Balance/gait along with postural blood pressure, vision and home fall hazards have been assessed. Medications have been reviewed, and recommendations made with regard to contributing factors for future falls. Plan of care: Consideration of vitamin D supplementation along with balance and strength training with consideration for formal physical therapy has been discussed with the patient. - Last Documented On 05/21/2024 12:06PM ; [facility] Pending Tests Order Diagnosis Results Due Ordering P rovider Therapy - Physical Therapy Shoulder 05/21/24 Jason Haynes PA-C Last Documented On 4 11:43AM ; [facility] Future Appointments Date Time Location Provi boone Follow Up 12/09/2024 1:00PM [facility] paedics [facility] Jason Haynes PA-C Last Documented On 5 1:53PM ; [facility] Assessments Includes: Assessments from this encounter No Assessments Recorded Medical Equipment - Implanted Devices Includes: Current Devices No Medical Equipment Recorded Medications Includes: Medications discussed during this encounter and other current Medications Current Medications (continue as prescribed) Pravastatin Sodium 40 MG Oral Tablet 03/21/2024 Prov ider: FLORIDA MIXON MD Diagnosis: Last Documented On 4 10:21AM By Flora Hillman ; [facility] Montelukast Sodium 10 MG Oral Tablet 03/21/2024 Prov ider: FLORIDA MIXON MD Diagnosis: Last Documented On 4 10:21AM By Flora Hillman ; [facility], [facility] Anoro Ellipta 62.5-25 MCG/AC T Inhalation Aerosol Powder Breath Activated 03/18/2024 Provider: FLORIDA MIXON MD Diagnosis: Last Documented On 4 10:21AM By Flora Hillman ; [facility], [facility] Pregabalin 100 MG Oral Capsule 02/18/2024 Provider: FLOR[place] MIXON MD Diagnosis: Last Documented On 4 9:07AM By Mala Acosta ; [facility], [facility] oxyCODONE-Acetaminophen 10-325 MG Oral Tablet 02/18/20 24 Provider: LUPILLO GALINDO DO Diagnosis: Last Documented On 4 9:07AM By Mala Acosta ; [facility], [facility] DULoxetine HCl 30 MG Oral Capsule Delayed Releas e Particles 02/15/2024 Provider: Diagnosis: Last Documented On 4 10:21AM By Flora Hillman ; [facility] clonazePAM 1 MG Oral Tablet 02/15/2024 Provider: FLORIDA MIXON MD Diagnosis: Last Documented On 4 9:07AM By Mala Acosta ; [facility], [facility] DULoxetine HCl 30 MG Oral Capsule Delayed Releas e Particles 02/15/2024 Provider: Diagnosis: Last Documented On 4 9:07AM By Mala Acosta ; [facility] Glimepiride 2 MG Oral Tablet 02/13/2024 Provider: FLORIDA MIXON MD Diagnosis: Last Documented On 4 10:22AM By Flora Hillman ; [facility], [facility] traZODone HCl 50 MG Oral Tablet 02/13/2024 Provider: Diagnosis: Last Documented On 4 10:22AM By Flora Hillman ; [facility] Verapamil HCl ER 100 MG Oral Capsule Extended Release 24 Hour 01/09/2024 Provider: FLORIDA MIXON MD Diagnosis: Last Documented On 4 10:22AM By Flora Hillman ; [facility] Jardiance 10 MG Oral Tablet 12/29/2023 Provider: FLORIDA MIXON MD Diagnosis: Last Documented On 4 10:22AM By Flora Hillman ; [facility] Diclofenac Sodium 1% External Gel 12/27/2023 Provide r: FLORIDA MIXON MD Diagnosis: Last Documented On 4 10:22AM By Flora Hillman ; [facility] Past Medications on file Ondansetron HCl 4 MG Oral Tablet 04/21/2024 - 05/01/2024 Provider: Wyatt whitt MD Diagnosis: 1 q 8 hours prn post op nausea Last Documented On 4 7:19AM By Flora Hillman ; [facility] Mupirocin 2% External Ointment 04/21/2024 - 04/26/2024 Provider: Wyatt whitt MD Diagnosis: twice a day place in each no stril twice daily beginning 5 days before surgery Last Documented On 4 7:04AM By Flora Hillman ; [facility] Benzoyl Peroxide Wash 5% External Liquid 04/21/2024 - 04/22/2024 Provider: Wyatt whitt MD Diagnosis: use as directed by Dr. Velasquez Last Documented On 4 7:04AM By Flora Hillman ; [facility] Medications Administered Includes: Administered Medications from this encounter No Administered Medications Recorded Vital Signs Includes: Vital Signs from this encounter Vital Name 05/21/2024 10:43A Height (in) 63 Weight (lb) 180 Body Mass Index 31.9 Body Surface Area 1.8 Note: kf Last Documented: On 05/21/2024 10:43A M ; [facility] Results Includes: Results discussed during this encounter No Results Recorded For Specified Dates History of Present Illness Includes: History of Present Illness from this encounter DENITA Barbosa is a 73 year old female. - Allergy list reviewed - Problem list reviewed - Medication list reviewed Patient is seen today in follow up after undergoing a right shoulder TSA. She has been doing very well. She denies any fever, dehiscence of the wound, or drainage from the wound. Physical exam Patient is awake and alert. Well groomed and nourished. No acute distress. Normal gait and station. Appropriate mood and affect. no rashes, cellulitis, ecchymosis. There is mild erythema surrounding the edges of the dressing consistent with reaction to adhesive material Patient has full active range of motion of the right elbow hand and wrist with full neurovascular capabilities Imaging X-ray of the right shoulder shows good placement of the implant Assessment Right shoulder status post TSA Plan Physical exam findings and x-ray results were discussed with the patient. She will begin phase 1 of the knee total shoulder arthroplasty protocol. She will follow up with us in 4-5 weeks for re-evaluation Social History Description Last Updated No caffeine use 02/29/2024 Last Documented On 4 10:43AM ; [facility] No recent change in diet 02/29/2024 Last Documented On 4 10:43AM ; [facility] Not a current smoker. 02/29/2024 Last Documented On 4 10:43AM ; [facility] Not exercising regularly 02/29/2024 Last Documented On 4 10:43AM ; [facility] Not using alcohol 02/29/2024 Last Documented On 4 10:43AM ; [facility] Not using drugs 02/29/2024 Last Documented On 4 10:43AM ; [facility] Smoking Status Unknown Procedures and Surgical History Includes: Procedures from this encounter Procedures Code Diagnosis Performing Provider Service Location Service Date X-RAY EXAM OF SHOULDER 2-3 VIEWS (RIGHT) 25041 Primary osteoarthritis, right shoulder Jason Haynes PA-C [facility] 05/21/2024 Last Documented On 4 8:56AM ; [facility] Surgical History Last Updated History of History of Gallbladder 2023 Last Documented On 4 10:43AM ; [facility] History of hysterectomy 02/29/2024 Last Documented On 4 10:43AM ; [facility] Medical History Includes: Medical History addressed during this encounter Description Last Updated History of Anemia 02/29/2024 Last Documented On 4 10:43AM ; [facility] History of asthma 02/29/2024 Last Documented On 4 10:43AM ; [facility] History of diabetes mellitus 02/29/2024 Last Documented On 4 10:43AM ; [facility] History of diverticulitis of colon 02/28 Last Documented On 4 10:43AM ; [facility] History of heart disease 02/29/2024 Last Documented On 4 10:43AM ; [facility] History of Heartburn / Acid Reflux 02/28 Last Documented On 4 10:43AM ; [facility] History of Hypertension 02/29/2024 Last Documented On 4 10:43AM ; [facility] History of Irregular Heartbeat 4 Last Documented On 4 10:43AM ; [facility] History of Sleep Apnea 02/29/2024 Last Documented On 4 10:43AM ; [facility] History of Thyroid Disease 02/29/2024 Last Documented On 4 10:43AM ; [facility] Use of CPAP 02/29/2024 Last Documented On 4 10:43AM ; [facility] Family History Includes: Family History addressed during this encounter Description Last Updated Diabetes mellitus 02/29/2024 Last Documented On 4 10:43AM ; [facility] Family history of cancer 02/29/2024 Last Documented On 4 10:43AM ; [facility] Family history of heart disease 02/29/20 24 Last Documented On 4 10:43AM ; [facility] Family history of systemic hypertension 02/29/2024 Last Documented On 4 10:43AM ; [facility] Review of Systems Includes: Review of Systems from this encounter No Review of Systems Recorded Mental Status Includes: Mental Status from this encounter No Mental Status Recorded Functional Status Includes: Functional Status from this encounter No Functional Status Recorded Physical Exam Includes: Physical Exam from this encounter Allergies Includes: Active Allergies No Known Allergies Encounters Encounter Provider Location Date Check-In Time Check-Out Time Diagnosis Post Op Jason Haynes PA-C [facility] 4 10:43AM 11:56AM Insurance Includes: Active Insurance Policies Plan Name Member ID Group # Subscriber Relationship Effect madonna Dates 1 - Medicare Part B [facility] [id number] Tiera Barbosa Self 2 - [employer] [id number] Tiera Barbosa Self Clinical Notes Includes: Clinical Notes from this encounter * Progress note Date Encounter Last Documented by 05/21/2024 Post Op Last documented on 05/21/2024; 12:06 PM, Jason Haynes PA-C; [facility] Active Problems & Conditions - Joint Pain, Localized in the Right Shoulder Chief Complaint The Chief Complaint is: Right shoulder pain. History of Present Illness Tiera Barbosa is a 73 year old female. - Allergy list reviewed - Problem list reviewed - Medication list reviewed Patient is seen today in follow up after undergoing a right shoulder TSA. She has been doing very well. She denies any fever, dehiscence of the wound, or drainage from the wound. Physical exam Patient is awake and alert. Well groomed and nourished. No acute distress. Normal gait and station. Appropriate mood and affect. no rashes, cellulitis, ecchymosis. There is mild erythema surrounding the edges of the dressing consistent with reaction to adhesive material Patient has full active range of motion of the right elbow hand and wrist with full neurovascular capabilities Imaging X-ray of the right shoulder shows good placement of the implant Assessment Right shoulder status post TSA Plan Physical exam findings and x-ray results were discussed with the patient. She will begin phase 1 of the knee total shoulder arthroplasty protocol. She will follow up with us in 4-5 weeks for re-evaluation Current Medication - Anoro Ellipta 62.5-25 MCG/ACT Inhalation Aerosol Powder Breath Activated use as directed 30 days, 0 refills - clonazePAM 1 MG Oral Tablet 30 days, 0 refills - Diclofenac Sodium 1% External Gel take as directed 21 days, 0 refills - DULoxetine HCl 30 MG Oral Capsule Delayed Release Particles 90 days, 0 refills - DULoxetine HCl 30 MG Oral Capsule Delayed Release Particles take as directed 90 days, 0 refills - Glimepiride 2 MG Oral Tablet take as directed 90 days, 0 refills - Jardiance 10 MG Oral Tablet take as directed 90 days, 0 refills - Montelukast Sodium 10 MG Oral Tablet take as directed 90 days, 0 refills - oxyCODONE-Acetaminophen 10-325 MG Oral Tablet 30 days, 0 refills - Pravastatin Sodium 40 MG Oral Tablet take as directed 90 days, 0 refills - Pregabalin 100 MG Oral Capsule 30 days, 0 refills - traZODone HCl 50 MG Oral Tablet use as directed 90 days, 0 refills - Verapamil HCl ER 100 MG Oral Capsule Extended Release 24 Hour take as directed 90 days, 0 refills Past Medical/Surgical History Reported: Use of CPAP. Diagnoses: Heart disease. Asthma Anemia Irregular Heartbeat Sleep Apnea Heartburn / Acid Reflux Thyroid Disease Hypertension. Diverticulitis of colon. Diabetes mellitus Surgical: - Hysterectomy - History of Gallbladder Social History Not a current smoker. Current diet: No recent change in diet. Caffeine use: No caffeine use. Alcohol: Not using alcohol. Drug Use: Not using drugs. Habits: Not exercising regularly. Allergies - No Known Allergies Family History Cancer Heart disease Diabetes mellitus Systemic hypertension Physical Findings - Vitals taken 05/21/2024 10:43 am kf Height 63 in Weight 180 lbs Body Mass Index 31.9 kg/m2 Body Surface Area 1.8 m2 Plan StartCited - Other Therapy/Physical Therapy: Shoulder Instructions: See PT order attached EndCited Fall Risk Assessment: This patient has been identified as a fall risk. Balance/gait along with postural blood pressure, vision and home fall hazards have been assessed. Medications have been reviewed, and recommendations made with regard to contributing factors for future falls. Plan of care: Consideration of vitamin D supplementation along with balance and strength training with consideration for formal physical therapy has been discussed with the patient. Notes This dictation was done with voice recognition software and may contain errors and omissions. Care Team - FLORIDA MIXON MD - INSPECTOR PACKER
--- OUTSIDE RECORDS SUMMARY | 2024-11-11 15:18 | XMS_ITS | Clinical Summary ---
Author Organization [facility] , [facility] Address [address] [place] [address] Phone Care Team Providers Care Case Filler Name Role Phone Ron TORRES, Wyatt Ko Unavailable Unavail able ORAL TORRES, NICK Molina Unavailable [phone] Reason for Visit and Chief Complaint The Chief Complaint is: Right shoulder pain Problems Includes: Problems addressed during this encounter and other active Problems All Visits Onset Date Resolved Date Provider Condition S tatus Joint Pain, Localized in the Right Shoulder 02/29/2024 Christi Lazo PA-C Active Last Documented On 4 9:10AM ; [facility], [facility] Plan of Treatment Future Appointments Date Time Location Provi boone Follow Up 12/09/2024 1:00PM [facility] paedics [facility] B Jason Haynes PA-C Last Documented On 5 1:53PM ; [facility], [facility] Instructions to patient Lose weight Last Documented On 5 1:21PM ; [facility], [facility] Assessments Includes: Assessments from this encounter No Assessments Recorded Instructions Includes: Instructions from this encounter Instructions to patient Lose weight Last Documented On 5 1:21PM ; [facility], [facility] Medical Equipment - Implanted Devices Includes: Current Devices No Medical Equipment Recorded Medications Includes: Medications discussed during this encounter and other current Medications Current Medications (continue as prescribed) Pravastatin Sodium 40 MG Oral Tablet 03/21/2024 Prov ider: NICK OSBORNE MD Diagnosis: Last Documented On 4 10:21AM By Flora Hillman ; [facility], [facility] Montelukast Sodium 10 MG Oral Tablet 03/21/2024 Prov ider: NICK OSBORNE MD Diagnosis: Last Documented On 4 10:21AM By Flora Hillman ; [facility] Anoro Ellipta 62.5-25 MCG/AC T Inhalation Aerosol Powder Breath Activated 03/18/2024 Provider: NICK OSBORNE MD Diagnosis: Last Documented On 4 10:21AM By Flora Hillman ; [facility] Pregabalin 100 MG Oral Capsule 02/18/2024 Provider: NICK OSBORNE MD Diagnosis: Last Documented On 4 9:07AM By Mala Acosta ; [facility] oxyCODONE-Acetaminophen 10-325 MG Oral Tablet 02/18/20 Provider: LUPILLO GALINDO DO Diagnosis: Last Documented On 4 9:07AM By Mala Acosta ; [facility] DULoxetine HCl 30 MG Oral Capsule Delayed Releas e Particles 02/15/2024 Provider: Diagnosis: Last Documented On 4 10:21AM By Flora Hillman ; [facility] clonazePAM 1 MG Oral Tablet 02/15/2024 Provider: NICK OSBORNE MD Diagnosis: Last Documented On 4 9:07AM By Mala Acosta ; [facility] DULoxetine HCl 30 MG Oral Capsule Delayed Releas e Particles 02/15/2024 Provider: Diagnosis: Last Documented On 4 9:07AM By Mala Acosta ; [facility] Glimepiride 2 MG Oral Tablet 02/13/2024 Provider: NICK OSBORNE MD Diagnosis: Last Documented On 4 10:22AM By Flora Hillman ; [facility] traZODone HCl 50 MG Oral Tablet 02/13/2024 Provider: Diagnosis: Last Documented On 4 10:22AM By Flora Hillman ; [facility] Verapamil HCl ER 100 MG Oral Capsule Extended Release 24 Hour 01/09/2024 Provider: NICK OSBORNE MD Diagnosis: Last Documented On 4 10:22AM By Flora Hillman ; [facility] Jardiance 10 MG Oral Tablet 12/29/2023 Provider: NICK OSBORNE MD Diagnosis: Last Documented On 4 10:22AM By Flora Hillman ; [facility], [facility] Diclofenac Sodium 1% External Gel 12/27/2023 Provide r: NICK OSBORNE MD Diagnosis: Last Documented On 4 10:22AM By Flora Hillman ; [facility], [facility] Past Medications on file Ondansetron HCl 4 MG Oral Tablet 04/21/2024 - 05/01/2024 Provider: Wyatt whitt MD Diagnosis: 1 q 8 hours prn post op nausea Last Documented On 4 7:19AM By Flora Hillman ; [facility], [facility] Mupirocin 2% External Ointment 04/21/2024 - 04/26/2024 Provider: Wyatt whitt MD Diagnosis: twice a day place in each no stril twice daily beginning 5 days before surgery Last Documented On 4 7:04AM By Flora Hillman ; [facility], [facility] Benzoyl Peroxide Wash 5% External Liquid 04/21/2024 - 04/22/2024 Provider: Wyatt whitt MD Diagnosis: use as directed by Dr. Velasquez Last Documented On 4 7:04AM By Flora Hillman ; [facility], [facility] Medications Administered Includes: Administered Medications from this encounter No Administered Medications Recorded Vital Signs Includes: Vital Signs from this encounter Vital Name 09/10/2024 01:21P Height (in) 63 Weight (lb) 180 Body Mass Index 31.9 Body Surface Area 1.8 Note: bfj Last Documented: On 09/10/2024 1:21PM ; [facility], [facility] Results Includes: Results discussed during this encounter No Results Recorded For Specified Dates History of Present Illness Includes: History of Present Illness from this encounter DENITA Barbosa is a 74 year old female. - Allergy list reviewed - Problem list reviewed - Medication list reviewed Patient is seen today in follow up after undergoing a right shoulder TSA on 05/08/2024. She is doing very well. She has no pain or discomfort at this point Physical exam Patient is awake and alert. Well groomed and nourished. No acute distress. Normal gait and station. Appropriate mood and affect. no rashes, erythema, ecchymosis Right shoulder has forward elevation to 110?. She has full active range motion of the right elbow wrist and hand. She is neurovascularly intact Assessment Right shoulder status post TSA Plan Patient will continue with conservative measures and and stay in phase 3 of TSA PT protocol. She will follow up with us in 3-4 weeks with a new x-ray Social History Description Last Updated No caffeine use 02/29/2024 Last Documented On 5 1:21PM ; [facility] No recent change in diet 02/29/2024 Last Documented On 1:21PM ; [facility] Not a current smoker. 02/29/2024 Last Documented On 1:21PM ; [facility] Not exercising regularly 02/29/2024 Last Documented On 1:21PM ; [facility] Not using alcohol 02/29/2024 Last Documented On 1:21PM ; [facility] Not using drugs 02/29/2024 Last Documented On 1:21PM ; [facility] Smoking Status Unknown Procedures and Surgical History Surgical History Last Updated History of History of Gallbladder 2023 Last Documented On 1:21PM ; [facility] History of hysterectomy 02/29/2024 Last Documented On 1:21PM ; [facility] Medical History Includes: Medical History addressed during this encounter Description Last Updated History of Anemia 02/29/2024 Last Documented On 5 1:21PM ; [facility] History of asthma 02/29/2024 Last Documented On 5 1:21PM ; [facility] History of diabetes mellitus 02/29/2024 Last Documented On 5 1:21PM ; [facility] History of diverticulitis of colon 02/28 Last Documented On 5 1:21PM ; [facility] History of heart disease 02/29/2024 Last Documented On 5 1:21PM ; [facility] History of Heartburn / Acid Reflux 02/28 Last Documented On 5 1:21PM ; [facility] History of Hypertension 02/29/2024 Last Documented On 5 1:21PM ; [facility] History of Irregular Heartbeat Last Documented On 5 1:21PM ; [facility] History of Sleep Apnea 02/29/2024 Last Documented On 5 1:21PM ; [facility] History of Thyroid Disease 02/29/2024 Last Documented On 5 1:21PM ; [facility] Use of CPAP 02/29/2024 Last Documented On 5 1:21PM ; [facility] Family History Includes: Family History addressed during this encounter Description Last Updated Diabetes mellitus 02/29/2024 Last Documented On 5 1:21PM ; [facility] Family history of cancer 02/29/2024 Last Documented On 5 1:21PM ; [facility], [facility] Family history of heart disease 02/29/20 Last Documented On 5 1:21PM ; [facility] Family history of systemic hypertension 02/29/2024 Last Documented On 5 1:21PM ; [facility] Review of Systems Includes: Review of Systems from this encounter Systemic: Feeling tired and recent weight loss. No recent weight gain. Head: No headache. Sinus pain. Eyes: No vision problems and no Cataracts. Glasses/Contacts. No Glaucoma. Otolaryngeal: No hearing loss and no tinnitus. Cardiovascular: Chest pain or discomfort, palpitations, and Hypertension. No High Cholesterol. Pulmonary: Daytime asthma symptoms. No chronic cough. Wheezing. Gastrointestinal: Heartburn, abdominal pain, and Indigestion. No Peptic Ulcer, no GI Stomach Bleed, and no Ulcers. Acid Reflux. Endocrine: Hot flashes, muscle weakness, and Diabetes. No Hypothyroid and no Hyperthyroid. Hematologic: No easy bleeding. A tendency for easy bruising and Anemia. Musculoskeletal: Arthritis and lower back pain. No soft tissue swelling. Pain localized to one or more joints. Neurological: No dizziness and no convulsions. Numbness. Psychological: Anxiety and emotional lability. No depression and no insomnia. Not crying for no reason. Skin: No dry skin. No Ulcers, no Scars, and no rash. Allergic and Immunologic: Complaint of seasonal allergic reaction. Mental Status Includes: Mental Status from this encounter Description Anxiety Functional Status Includes: Functional Status from this encounter No Functional Status Recorded Physical Exam Includes: Physical Exam from this encounter Allergies Includes: Active Allergies No Known Allergies Encounters Encounter Provider Location Date Check-In Time Check-Out Time Diagnosis Follow Up Jason Haynes PA-C [facility] 1:16PM 1:47PM Insurance Includes: Active Insurance Policies Plan Name Member ID Group # Subscriber Relationship Effect madonna Dates 1 - Medicare Part B [facility] [id number] Tiera Barbosa Self 2 - [facility] [employer] [id number] Tiera Barbosa Self Clinical Notes Includes: Clinical Notes from this encounter * Progress note Date Encounter Last Documented by 09/10/2024 Follow Up Last documented on 11/05/2024; 12:49 PM, Jason Haynes PA-C; [facility] Active Problems & Conditions - Joint Pain, Localized in the Right Shoulder Chief Complaint The Chief Complaint is: Right shoulder pain. Referred Here Referred by Nick Osborne. History of Present Illness Tiera Barbosa is a 74 year old female. - Allergy list reviewed - Problem list reviewed - Medication list reviewed Patient is seen today in follow up after undergoing a right shoulder TSA on 05/08/2024. She is doing very well. She has no pain or discomfort at this point Physical exam Patient is awake and alert. Well groomed and nourished. No acute distress. Normal gait and station. Appropriate mood and affect. no rashes, erythema, ecchymosis Right shoulder has forward elevation to 110-. She has full active range motion of the right elbow wrist and hand. She is neurovascularly intact Assessment Right shoulder status post TSA Plan Patient will continue with conservative measures and and stay in phase 3 of TSA PT protocol. She will follow up with us in 3-4 weeks with a new x-ray Current Medication - Anoro Ellipta 62.5-25 MCG/ACT [...] Cancer Heart disease Diabetes mellitus Systemic hypertension Review Of Systems Systemic: Feeling tired and recent weight loss. No recent weight gain. Head: No headache. Sinus pain. Eyes: No vision problems and no Cataracts. Glasses/Contacts. No Glaucoma. Otolaryngeal: No hearing loss and no tinnitus. Cardiovascular: Chest pain or discomfort, palpitations, and Hypertension. No High Cholesterol. Pulmonary: Daytime asthma symptoms. No chronic cough. Wheezing. Gastrointestinal: Heartburn, abdominal pain, and Indigestion. No Peptic Ulcer, no GI Stomach Bleed, and no Ulcers. Acid Reflux. Endocrine: Hot flashes, muscle weakness, and Diabetes. No Hypothyroid and no Hyperthyroid. Hematologic: No easy bleeding. A tendency for easy bruising and Anemia. Musculoskeletal: Arthritis and lower back pain. No soft tissue swelling. Pain localized to one or more joints. Neurological: No dizziness and no convulsions. Numbness. Psychological: Anxiety and emotional lability. No depression and no insomnia. Not crying for no reason. Skin: No dry skin. No Ulcers, no Scars, and no rash. Allergic and Immunologic: Complaint of seasonal allergic reaction. Physical Findings - Vitals taken 09/10/2024 01:21 pm bfj Height 63 in Weight 180 lbs Body Mass Index 31.9 kg/m2 Body Surface Area 1.8 m2 Counseling/Education - Tobacco non-user - Use of tobacco assessment performed - Lose weight Care Team - NICK OSBORNE MD - BARREL FINISHER
--- OUTSIDE RECORDS SUMMARY | 2024-11-11 15:18 | XMS_ITS | Clinical Summary ---
Author Organization [facility] , [facility] Address [address] [place] [address] Phone Care Team Providers Care Partner Alliance Manager Name Role Phone Ron TORRES, Wyatt Ko Unavailable [phone] ORAL TORRES, [place] Molina Unavailable [phone] Reason for Visit and Chief Complaint [facility] [facility] Problems Includes: Problems addressed during this encounter and other active Problems All Visits Onset Date Resolved Date Provider Condition S tatus Joint Pain, Localized in the Right Shoulder 02/29/2024 Christi Lazo PA-C Active Last Documented On 4 9:10AM ; [facility] Plan of Treatment Future Appointments Date Time Location Provi boone Follow Up 12/09/2024 1:00PM [facility] paedics [facility] B Jason Haynes PA-C Last Documented On 5 1:53PM ; [facility] Assessments Includes: Assessments from this encounter No Assessments Recorded Medical Equipment - Implanted Devices Includes: Current Devices No Medical Equipment Recorded Medications Includes: Medications discussed during this encounter and other current Medications Current Medications (continue as prescribed) Pravastatin Sodium 40 MG Oral Tablet 03/21/2024 Prov ider: [place] MIXON MD Diagnosis: Last Documented On 4 10:21AM By Flora Hillman ; [facility] Montelukast Sodium 10 MG Oral Tablet 03/21/2024 Prov ider: [place] MIXON MD Diagnosis: Last Documented On 4 10:21AM By Flora Hillman ; [facility] Anoro Ellipta 62.5-25 MCG/AC T Inhalation Aerosol Powder Breath Activated 03/18/2024 Provider: [place] MIXON MD Diagnosis: Last Documented On 4 10:21AM By Flora Hillman ; [facility] Pregabalin 100 MG Oral Capsule 02/18/2024 Provider: [place] MIXON MD Diagnosis: Last Documented On 4 9:07AM By Mala Acosta ; [facility] oxyCODONE-Acetaminophen 10-325 MG Oral Tablet 02/18/20 Provider: LUPILLO GALINDO DO Diagnosis: Last Documented On 4 9:07AM By Mala Acosta ; [facility] DULoxetine HCl 30 MG Oral Capsule Delayed Releas e Particles 02/15/2024 Provider: Diagnosis: Last Documented On 4 10:21AM By Flora Hillman ; [facility] clonazePAM 1 MG Oral Tablet 02/15/2024 Provider: [place] MIXON MD Diagnosis: Last Documented On 4 9:07AM By Mala Acosta ; [facility], [facility] DULoxetine HCl 30 MG Oral Capsule Delayed Releas e Particles 02/15/2024 Provider: Diagnosis: Last Documented On 4 9:07AM By Mala Acosta ; [facility], [facility] Glimepiride 2 MG Oral Tablet 02/13/2024 Provider: [place] MIXON MD Diagnosis: Last Documented On 4 10:22AM By Flora Hillman ; [facility] traZODone HCl 50 MG Oral Tablet 02/13/2024 Provider: Diagnosis: Last Documented On 4 10:22AM By Flora Hillman ; [facility] Verapamil HCl ER 100 MG Oral Capsule Extended Release 24 Hour 01/09/2024 Provider: [place] MIXON MD Diagnosis: Last Documented On 4 10:22AM By Flora Hillman ; [facility], [facility] Jardiance 10 MG Oral Tablet 12/29/2023 Provider: [place] MIXON MD Diagnosis: Last Documented On 4 10:22AM By Flora Hillman ; [facility], [facility] Diclofenac Sodium 1% External Gel 12/27/2023 Provide r: [place] MIXON MD Diagnosis: Last Documented On 4 10:22AM By Flora Hillman ; [facility] Medications Administered Includes: Administered Medications from this encounter No Administered Medications Recorded Results Includes: Results discussed during this encounter No Results Recorded For Specified Dates History of Present Illness Includes: History of Present Illness from this encounter No History of Present Illness Recorded Social History No Social History Recorded - Smoking Status Unknown Procedures and Surgical History Includes: Procedures from this encounter Procedures Code Diagnosis Performing Provider Service Location Service Date RECONSTRUCT SHOULDER JOINT (RIGHT) 79892 Primary osteoarthritis, right shoulder Wyatt Velasquez MD [facility] 05/08/2024 Last Documented On 11:08AM ; [facility] Medical History Includes: Medical History addressed during this encounter No Medical History Recorded Family History Includes: Family History addressed during this encounter No Family History Recorded Review of Systems Includes: Review of Systems from this encounter No Review of Systems Recorded Mental Status Includes: Mental Status from this encounter No Mental Status Recorded Functional Status Includes: Functional Status from this encounter No Functional Status Recorded Physical Exam Includes: Physical Exam from this encounter No Physical Exam Recorded Allergies Includes: Active Allergies No Known Allergies Encounters Encounter Provider Location Date Check-In Time Check-Out Time Diagnosis [facility] Wyatt Velasquez MD Surgery 05/08/2024 7:11AM 11:59PM Insurance Includes: Active Insurance Policies Plan Name Member ID Group # Subscriber Relationship Effect madonna Dates 1 - Medicare Part B [facility] [id number] Tiera Tompkins 2 - [facility] [employer] [id number] Tiera Tompkins Clinical Notes Includes: Clinical Notes from this encounter No Clinical Notes Recorded
--- OUTSIDE RECORDS SUMMARY | 2024-11-11 15:18 | XMS_ITS ---
Care Plan - [facility] Created on: November 11, 2024 Tiera Barbosa : 1950 Sex: Female Author Organization [facility] Address [address] [place] [address] Phone Care Team Providers Care Environmental Engineering Technician Name Role Phone Ron TORRES, Wyatt Ko Unavailable [phone] ORAL TORRES, [place] Molina Unavailable [phone]
--- OUTSIDE RECORDS SUMMARY | 2024-11-11 15:18 | XMS_ITS ---
Author Organization [facility] Address [address] [place] [address] Phone Care Team Providers Care Truck Switcher Name Role Phone Ron TORRES, Wyatt Ko Unavailable [phone] NICK OSBORNE MD Unavailable [phone] Problems Includes: Active, inactive, and resolved Problems All Visits Onset Date Resolved Date Provider Condition S tatus Joint Pain, Localized in the Right Shoulder 02/29/2024 Christi Lazo PA-C Active Last Documented On 4 9:10AM ; [facility], [facility] Plan of Treatment Findings Encounter Date Patient screened for future fall risk: documentation of any fall with injury in past year Follow Up with Wyatt Velasquez MD 04/07/2024 Last Documented On 4 10:51AM ; [facility] Patient screened for future fall risk: documentation of any fall with injury in past year Physician Specified with Christi Lazo PA-C 02/29/2024 Last Documented On 4 4:57PM ; [facility] Pending Tests Order Diagnosis Results Due Ordering P roarnaldoder Radiology - CT Scan Shoulder Pain in right shoulder 02/15 Christi Lazo PA-C Last Documented On 4 9:38AM ; [facility] Procedure/Tests BGO EMG Pain in right shoulder 03/14/24 Christi Lazo PA-C Last Documented On 4 9:38AM ; [facility] Future Appointments Date Time Location Provi boone Follow Up 12/09/2024 1:00PM [facility] paedics [facility] Vipul Haynes PA-C Last Documented On 5 1:53PM ; [facility], [facility] Instructions to patient Lose weight Last Documented On 5 1:21PM ; [facility] Lose weight Last Documented On 4 3:23PM ; [facility] Lose weight Last Documented On 4 9:59AM ; [facility] Lose weight Last Documented On 4 12:03PM ; [facility] Assessments Includes: Assessments for all patient encounters Findings Encounter Date Overweight Follow Up with Wyatt schaefer MD 04/07/2024 Last Documented On 4 10:51AM ; [facility] Overweight Physician Specified with Christi Lazo PA-C 02/29/2024 Last Documented On 4 4:57PM ; [facility] Instructions Includes: Instructions for all patient encounters Instructions to patient Lose weight Last Documented On 5 1:21PM ; [facility] Lose weight Last Documented On 4 3:23PM ; [facility] Lose weight Last Documented On 4 9:59AM ; [facility] Lose weight Last Documented On 4 12:03PM ; [facility] Medical Equipment - Implanted Devices Includes: Current and historical Devices No Medical Equipment Recorded Medications Includes: Current and historical Medications Current Medications (continue as prescribed) Pravastatin Sodium 40 MG Oral Tablet 03/21/2024 Prov ider: NICK OSBORNE MD Diagnosis: Last Documented On 4 10:21AM By Flora Hillman ; [facility] Montelukast Sodium 10 MG Oral Tablet 03/21/2024 Prov ider: NICK OSBORNE MD Diagnosis: Last Documented On 4 10:21AM By Flora Hillman ; [facility] Anoro Ellipta 62.5-25 MCG/AC T Inhalation Aerosol Powder Breath Activated 03/18/2024 Provider: NICK OSBORNE MD Diagnosis: Last Documented On 4 10:21AM By Flora Hillman ; [facility] Pregabalin 100 MG Oral Capsule 02/18/2024 Provider: NICK OSBORNE MD Diagnosis: Last Documented On 4 9:07AM By Mala Acosta ; [facility] oxyCODONE-Acetaminophen 10-325 MG Oral Tablet 02/18/20 Provider: LUPILLO GALINDO DO Diagnosis: Last Documented On 4 9:07AM By Mala Acosta ; [facility] DULoxetine HCl 30 MG Oral Capsule Delayed Releas e Particles 02/15/2024 Provider: Diagnosis: Last Documented On 4 10:21AM By Flora Hillman ; [facility] clonazePAM 1 MG Oral Tablet 02/15/2024 Provider: NICK OSBORNE MD Diagnosis: Last Documented On 4 9:07AM By Mala Acosta ; [facility] DULoxetine HCl 30 MG Oral Capsule Delayed Releas e Particles 02/15/2024 Provider: Diagnosis: Last Documented On 4 9:07AM By Mala Acosta ; [facility] Glimepiride 2 MG Oral Tablet 02/13/2024 Provider: NICK OSBORNE MD Diagnosis: Last Documented On 4 10:22AM By Flora Hillman ; [facility] traZODone HCl 50 MG Oral Tablet 02/13/2024 Provider: Diagnosis: Last Documented On 4 10:22AM By Flora Hillman ; [facility] Verapamil HCl ER 100 MG Oral Capsule Extended Release 24 Hour 01/09/2024 Provider: NICK OSBORNE MD Diagnosis: Last Documented On 4 10:22AM By Flora Hillman ; [facility] Jardiance 10 MG Oral Tablet 12/29/2023 Provider: NICK OSBORNE MD Diagnosis: Last Documented On 4 10:22AM By Flora Hillman ; [facility] Diclofenac Sodium 1% External Gel 12/27/2023 Provide r: NICK OSBORNE MD Diagnosis: Last Documented On 4 10:22AM By Flora Hillman ; [facility] Past Medications on file Ondansetron HCl 4 MG Oral Tablet 04/21/2024 - 05/01/2024 Provider: Wyatt whitt MD Diagnosis: 1 q 8 hours prn post op nausea Last Documented On 4 7:19AM By Flora Hillman ; [facility] Mupirocin 2% External Ointment 04/21/2024 - 04/26/2024 Provider: Wyatt whitt MD Diagnosis: twice a day place in each no stril twice daily beginning 5 days before surgery Last Documented On 4 7:04AM By Flora Hillman ; [facility] Benzoyl Peroxide Wash 5% External Liquid 04/21/2024 - 04/22/2024 Provider: Wyatt whitt MD Diagnosis: use as directed by Dr. Velasquez Last Documented On 4 7:04AM By Flora Hillman ; [facility] Medications Administered Includes: Administered Medications in patient's chart No Administered Medications Recorded Vital Signs Includes: Vital Signs from 11/12/2023 through 11/11/2024 Vital Name 09/10/2024 01:21P 06/25/2024 03:23P 05/21/2024 10:43A 04/07/2024 10:00A 02/29/2024 09:07A Height (in) 63 63 63 63 63 Weight (lb) 180 180 180 180 180 Body Mass Index 31.9 31.9 31.9 31.9 31.9 Body Surface Area 1.8 1.8 1.8 1.8 1.8 Note: bfj ab kf ab kld Last Documented: On 09/10/2024 1:21PM ; [facility] On 06/25/2024 3:23PM ; [facility] On 05/21/2024 10:43AM ; [facility] On 04/07/2024 10:00AM ; [facility] On 02/29/2024 11:57AM ; [facility] Results Includes: Results from 11/12/2023 through 11/11/2024 No Results Recorded For Specified Dates History of Present Illness History of Present Illness not supported for this document type No History of Present Illness Recorded Social History Description Last Updated No caffeine use 02/29/2024 Last Documented On 4:57PM ; [facility] No recent change in diet 02/29/2024 Last Documented On 4 4:57PM ; [facility] Not a current smoker. 02/29/2024 Last Documented On 4 4:57PM ; [facility] Not exercising regularly 02/29/2024 Last Documented On 4 4:57PM ; [facility] Not using alcohol 02/29/2024 Last Documented On 4 4:57PM ; [facility] Not using drugs 02/29/2024 Last Documented On 4 4:57PM ; [facility] Smoking Status Unknown Procedures and Surgical History Includes: Procedures from 11/12/2023 through 11/11/2024 Procedures Code Diagnosis Performing Provider Service Location Service Date X-RAY EXAM OF SHOULDER 2-3 VIEWS (RIGHT) 07330 Primary osteoarthritis, right shoulder Jason Haynes PA-C [facility] 05/21/2024 Last Documented On 4 8:56AM ; [facility] RECONSTRUCT SHOULDER JOINT (RIGHT) 17779 Primary osteoarthritis, right shoulder Wyatt Velasquez MD [facility] 05/08/2024 Last Documented On 4 11:08AM ; [facility] Nerve Conduction Studies; 5-6 studies 85520 Pain in right arm Wyatt Velasquez MD [facility] 03/24/2024 Last Documented On 4 3:49PM ; [facility] Needle EMG, complete, five or more muscles 08858 Pain in right arm Wyatt Velasquez MD [facility] 03/24/2024 Last Documented On 4 3:49PM ; [facility] X-RAY EXAM OF SHOULDER 2-3 VIEWS (RIGHT) 38719 Primary osteoarthritis, right shoulder Maryslegabriele Lazo PA-C [facility] 02/29/2024 Last Documented On 4 2:58PM ; [facility] Surgical History Last Updated History of History of Gallbladder 2023 Last Documented On 4 4:57PM ; [facility] History of hysterectomy 02/29/2024 Last Documented On 4 4:57PM ; [facility] Medical History Includes: Medical History in patient's chart Description Last Updated History of Anemia 02/29/2024 Last Documented On 4 4:57PM ; [facility] History of asthma 02/29/2024 Last Documented On 4 4:57PM ; [facility] History of diabetes mellitus 02/29/2024 Last Documented On 4 4:57PM ; [facility] History of diverticulitis of colon 02/28 Last Documented On 4 4:57PM ; [facility] History of heart disease 02/29/2024 Last Documented On 4 4:57PM ; [facility] History of Heartburn / Acid Reflux 02/28 Last Documented On 4 4:57PM ; [facility] History of Hypertension 02/29/2024 Last Documented On 4 4:57PM ; [facility] History of Irregular Heartbeat 4 Last Documented On 4 4:57PM ; [facility] History of Sleep Apnea 02/29/2024 Last Documented On 4 4:57PM ; [facility] History of Thyroid Disease 02/29/2024 Last Documented On 4 4:57PM ; [facility] Use of CPAP 02/29/2024 Last Documented On 4 4:57PM ; [facility] Family History Includes: Family History in patient's chart Description Last Updated Diabetes mellitus 02/29/2024 Last Documented On 4 4:57PM ; [facility] Family history of cancer 02/29/2024 Last Documented On 4 4:57PM ; [facility] Family history of heart disease 02/29/20 Last Documented On 4 4:57PM ; [facility] Family history of systemic hypertension 02/29/2024 Last Documented On 4:57PM ; [facility] Review of Systems Review of Systems not supported for this document type No Review of Systems Recorded Mental Status Description Anxiety Functional Status No Functional Status Recorded Physical Exam Physical Exam not supported for this document type No Physical Exam Recorded Allergies Includes: Active, inactive, and resolved Allergies No Known Allergies Encounters Includes: Encounters from 11/12/2023 through 11/11/2024 Encounter Provider Location Date Check-In Time Check-Out Time Diagnosis Follow Up Jason Haynes PA-C [facility] 09/10/19 1:16PM 1:47PM Post Op Jason Haynes PA-C [facility] 06/25/20 3:03PM 3:44PM Post Op Jason Haynes PA-C [facility] 05/21/20 10:43AM 11:56AM [Patient Encounter] Wyatt Velasquez MD 05/08/20 24 04/07/2024 9:09AM 04/07/2024 11:59PM [facility] Wyatt Velasquez MD Surgery 05/08/20 7:11AM 04/07/2024 11:59PM Follow Up Wyatt Velasquez MD [facility] 04/07/20 9:51AM 10:11AM Overweight EMG [facility] 03/24/20 10:24AM 02/29/2024 11:59PM Physician Specified Christi Lazo PA-C [facility] 02/29/20 9:05AM 9:33AM Overweight Insurance Includes: Active Insurance Policies Plan Name Member ID Group # Subscriber Relationship Effect madonna Dates 1 - Medicare Part B [facility] [id number] Tiera Tompkins 2 - [facility] [employer] [id number] Tiera Tompkins Clinical Notes Includes: Signed Clinical Notes starting from 06/29/2022 * Progress note Date Encounter Last Documented by 09/10/2024 Follow Up Last documented on 11/05/2024; 12:49 PM, Jason Haynes PA-C; [facility] Active Problems & Conditions - Joint Pain, [...] Care Team - NICK OSBORNE MD - ENGINEERING DRAFTER * Progress note Date Encounter Last Documented by 06/25/2024 Post Op Last documented on 06/25/2024; 4:36 PM, Jason Dan; [facility] Active Problems & Conditions - Joint Pain, [...] after undergoing a right shoulder TSA. She is doing very well. She has no pain or discomfort at this point Physical exam Patient is awake and alert. Well groomed and nourished. No acute distress. Normal gait and station. Appropriate mood and affect. no rashes, erythema, ecchymosis Right shoulder has forward elevation to 90-. She has full active range motion of the right elbow wrist and hand. She is neurovascularly intact Assessment Right shoulder status post TSA Plan Patient will continue with conservative measures and progress to phase 2/3 of TSA PT protocol. Patient will follow up with us in 8-10 weeks with a new x-ray Current Medication [...] allergic reaction. Physical Findings - Vitals taken 06/25/2024 03:23 pm ab Height 63 in Weight 180 lbs Body Mass Index 31.9 kg/m2 Body Surface Area 1.8 m2 Previous Tests Imaging: X-Ray: An X-ray was performed. Counseling/Education - Tobacco non-user - Use of tobacco assessment performed - Lose weight Plan StartCited - Other Therapy/Physical Therapy: Shoulder, Lumbar Instructions: See PT order attached EndCited Notes This dictation was done with voice recognition software and may contain errors and omissions. Care Team - NICK OSBORNE MD - ENGINEERING DRAFTER * Progress note Date Encounter Last Documented by 05/21/2024 Post Op Last documented on 05/21/2024; 12:06 PM, Jason Haynes PA-C; [facility] Active Problems & Conditions - Joint Pain, [...] contain errors and omissions. Care Team - NICK OSBORNE MD - ENGINEERING DRAFTER * Progress note Date Encounter Last Documented by 04/07/2024 Follow Up Last documented on 04/09/2024; 10:51 AM, Wyatt Velasquez MD; [facility] Active Problems & Conditions - Joint Pain, Localized in the Right Shoulder Chief Complaint The Chief Complaint is: Right shoulder pain. Referred Here Referred by Nick Osborne. History of Present Illness Tiera Barbosa is a 73 year old female. - Symptoms giving way. - Allergy list reviewed - Problem list reviewed - Medication list reviewed - Sharp pain Symptoms - Pain is occasional (25% of the time) - Patient pain level from 1-10: 5 - History of Injections - - Review of medications documented Patient is here for her right shoulder. She is here for CT scan follow up. She has had 8-9 years of right shoulder pain. She has catching popping locking grinding. She has had multiple injections. They do not give her any sustained relief of more than a few weeks to a month. She has rested she has modified her activities she has utilized anti-inflammatories as she can tolerate. She has lost range of motion. It has interfered with her activities of daily living. She has says her quality of life has suffered significantly because of her deficiencies in his shoulder. Current Medication - Anoro Ellipta 62.5-25 MCG/ACT [...] allergic reaction. Physical Findings - Vitals taken 04/07/2024 10:00 am ab Height 63 in Weight 180 lbs Body Mass Index 31.9 kg/m2 Body Surface Area 1.8 m2 Alert and oriented x 3, Skin intact, No gross deformity, no atrophy of rotator cuff musculature, Sensation intact to light touch through upper extremity. Range of motion limited to all planes of motion. Crepitus present with range of motion. Fingers warm well perfused. Impingement testing negative. Rotator cuff strength testing within normal limits. Biceps testing equivocal. Tests CT scan demonstrates severe glenohumeral arthritis, Walch type A1 glenoid, grade 3 changes with a large humeral osteophyte. Cystic change in the humeral head and glenoid. Complete loss of joint space. Loose bodies notable in the posterior aspect of the glenohumeral joint. Of note there is also multiple small pulmonary nodules. Assessment - Overweight Primary glenohumeral osteoarthritis in an 73-year-old female with some medical comorbidities. She has had symptoms for 8-9 years. She has rested modified her activities utilize anti-inflammatories had injections and therapeutic exercise without success Previous Tests Imaging: X-Ray: An X-ray was performed. Counseling/Education - Tobacco non-user - Use of tobacco assessment performed - Lose weight Plan - Patient screened for future fall risk: documentation of any fall with injury in past year Plan at this point given her failure of improvement with conservative measures is to proceed with anatomic right total shoulder arthroplasty. Goals risks benefits rehab and recovery were described in detail. She wishes to proceed. We did discuss the details of her CT scan. We did discuss the findings of small pulmonary nodules. I provided the report to her. She will discuss this with her primary care physician. I discussed the significance of this and the timeframe needed to discuss this with her primary care physician. Again we discussed the potential for anatomic total shoulder arthroplasty. We discussed goals risks benefits rehab and recovery and she wishes to proceed. The patient understands the risk of surgery to include but are not limited to infection, possible nerve damage, tendon or vessel injury, scar sensitivity and anesthesia.The patient understands the need for postoperative rehabilitation and therapy. The patient had no further questions regarding the surgery or potential risks. This patient was prescribed a shoulder immobilizer for severe primary glenohumeral right shoulder osteoarthritis. The patient has weakness and / or instability of their right upper extremity which requires stabilization from this semi-rigid / rigid orthosis to improve their function. Verbal and written instructions for the use and application of this item were given. Patient was instructed that should the brace result in increased pain, decreased sensation, increased swelling, or an overall worsening of their medical condition, to please contact our office immediately. Orthotic management and training was provided for skin care, modifications due to healing tissues, edema changes, interruption in skin integrity, and safety precautions with the orthosis. Surgery: Right shoulder anatomic total shoulder arthroplasty using Arthrex Fall Risk Assessment: This patient has been [...] contain errors and omissions. Care Team - NICK OSBORNE MD - ENGINEERING DRAFTER * Progress note Date Encounter Last Documented by 02/29/2024 Physician Specified Last l[place] medrano on 02/29/2024; 4:57 PM, Christi Lazo PA-C; [facility] Active Problems & Conditions - Joint Pain, Localized in the Right Shoulder Chief Complaint The Chief Complaint is: Right shoulder pain. Referred Here Referred by Nick Osborne. History of Present Illness Tiera Barbosa is a 73 year old female. - Symptoms giving way. - Allergy list reviewed - Problem list reviewed - Medication list reviewed - Sharp pain Symptoms - Pain is occasional (25% of the time) - Patient pain level from 1-10: 5 - History of Injections - - Review of medications documented Current Medication - clonazePAM 1 MG Oral Tablet 30 days, 0 refills - DULoxetine HCl 30 MG Oral Capsule Delayed Release Particles 90 days, 0 refills - oxyCODONE-Acetaminophen 10-325 MG Oral Tablet 30 days, 0 refills - Pregabalin 100 MG Oral Capsule 30 days, 0 refills Past Medical/Surgical History Reported: [...] Not using drugs. Habits: Not exercising regularly. Family History Cancer Heart disease Diabetes mellitus [...] allergic reaction. Physical Findings - Vitals taken 02/29/2024 09:07 am kld Height 63 in Weight 180 lbs Body Mass Index 31.9 kg/m2 Body Surface Area 1.8 m2 General Exam: The patient is awake and alert. No acute distress. Normal mood and affect for age. Well groomed and nourished Neuro: Sensation was intact to light touch over the extremity. Vascular: +2 radial pulses. No edema. Derm: No signs of active infection. No acute skin changes. Musculoskeletal: Normal gait and station. No muscle atrophy. No joint effusion. No muscle or bony deformity. Patient has pain with active forward flexion. Full passive motion. There is pain and weakness with supraspinatus testing. Tests X-rays 3 view in the office today of the shoulder show glenohumeral joint arthritis. No acute process. Assessment - Overweight Right shoulder arthritis Previous Tests Imaging: X-Ray: An X-ray was performed. Counseling/Education - Tobacco non-user - Use of tobacco assessment performed - Lose weight Plan StartCited - Pain in right shoulder Radiology/CT Scan: Shoulder Procedure/Tests: BGO EMG EndCited - Patient screened for future fall risk: documentation of any fall with injury in past year Patient shows signs and symptoms of glenohumeral joint arthritis. I did review the x-rays with the patient today. Risk and benefits of both surgical and nonsurgical measures were outlined. I discussed the role of injection for this pain. They understand this does not cure arthritis and injections can have varying results as far as relief and benefit. The surgical option would include an arthroplasty. They have no further questions she has some numbness and weakness in the hand we are going to get a nerve study as well. She will get a CT Arthrex protocol. She will see the surgeon same day follow up for planning. She has failed multiple injections Notes This dictation was done with voice recognition software and may contain errors and omissions.
--- OUTSIDE RECORDS SUMMARY | 2024-11-11 15:18 | XMS_ITS | Clinical Summary ---
Author Organization [facility] , [facility] Address [address] [place] [address] Phone Care Team Providers Care Filter Cleaner Name Role Phone Ron TORRES, Wyatt Ko Unavailable [phone] ORAL TORRES, FLOR[place] Molina Unavailable [phone] Reason for Visit and Chief Complaint [Patient Encounter] Problems Includes: Problems addressed during this encounter and other active Problems All Visits Onset Date Resolved Date Provider Condition S tatus Joint Pain, Localized in the Right Shoulder 02/29/2024 Christi Lazo PA-C Active Last Documented On 4 9:10AM ; [facility] Plan of Treatment Future Appointments Date Time Location Provi boone Follow Up 12/09/2024 1:00PM [facility] B Jason Haynes PA-C Last Documented On 5 1:53PM ; [facility] Assessments Includes: Assessments from this encounter No Assessments Recorded Medical Equipment - Implanted Devices Includes: Current Devices No Medical Equipment Recorded Medications Includes: Medications discussed during this encounter and other current Medications Current Medications (continue as prescribed) Pravastatin Sodium 40 MG Oral Tablet 03/21/2024 Prov ider: [place] MIXON MD Diagnosis: Last Documented On 4 10:21AM By Flora Hillman ; [facility], [facility] Montelukast Sodium 10 MG Oral Tablet 03/21/2024 Prov ider: [place] MIXON MD Diagnosis: Last Documented On 4 10:21AM By Flora Hillman ; [facility], [facility] Anoro Ellipta 62.5-25 MCG/AC T Inhalation Aerosol Powder Breath Activated 03/18/2024 Provider: [place] MIXON MD Diagnosis: Last Documented On 4 10:21AM By Flora Hillman ; [facility] Pregabalin 100 MG Oral Capsule 02/18/2024 Provider: [place] MIXON MD Diagnosis: Last Documented On 4 9:07AM By Mala Acosta ; [facility] oxyCODONE-Acetaminophen 10-325 MG Oral Tablet 02/18/20 Provider: LUPILLO GALINDO DO Diagnosis: Last Documented On 4 9:07AM By Mala Acosta ; [facility] DULoxetine HCl 30 MG Oral Capsule Delayed Releas e Particles 02/15/2024 Provider: Diagnosis: Last Documented On 4 10:21AM By Flora Hillman ; [facility] clonazePAM 1 MG Oral Tablet 02/15/2024 Provider: [place] MIXON MD Diagnosis: Last Documented On 4 9:07AM By Mala Acosta ; [facility] DULoxetine HCl 30 MG Oral Capsule Delayed Releas e Particles 02/15/2024 Provider: Diagnosis: Last Documented On 4 9:07AM By Mala Acosta ; [facility] Glimepiride 2 MG Oral Tablet 02/13/2024 Provider: FL[place] MIXON MD Diagnosis: Last Documented On 4 10:22AM By Flora Hillman ; [facility] traZODone HCl 50 MG Oral Tablet 02/13/2024 Provider: Diagnosis: Last Documented On 4 10:22AM By Flora Hillman ; [facility] Verapamil HCl ER 100 MG Oral Capsule Extended Release 24 Hour 01/09/2024 Provider: FL[place] MIXON MD Diagnosis: Last Documented On 4 10:22AM By Flora Hillman ; [facility] Jardiance 10 MG Oral Tablet 12/29/2023 Provider: [place] MIXON MD Diagnosis: Last Documented On 4 10:22AM By Flora Hillman ; [facility] Diclofenac Sodium 1% External Gel 12/27/2023 Provide r: [place] MIXON MD Diagnosis: Last Documented On 4 10:22AM By Flora Hillman ; [facility], [facility] Medications Administered Includes: Administered Medications from this encounter No Administered Medications Recorded Results Includes: Results discussed during this encounter No Results Recorded For Specified Dates History of Present Illness Includes: History of Present Illness from this encounter No History of Present Illness Recorded Social History No Social History Recorded - Smoking Status Unknown Medical History Includes: Medical History addressed during [...] Location Date Check-In Time Check-Out Time Diagnosis [Patient Encounter] Wyatt Velasquez MD 05/08/2024 9:09AM 11:59PM Insurance Includes: Active Insurance Policies Plan Name Member ID Group # Subscriber Relationship Effect madonna Dates 1 - Medicare Part B [facility] [id number] Tiera Tompkins 2 - [employer] [facility] [employer] [id number] Tiera Tompkins Clinical Notes Includes: Clinical Notes from this encounter No Clinical Notes Recorded
--- OUTSIDE RECORDS SUMMARY | 2024-11-11 15:18 | XMS_ITS | Clinical Summary ---
Author Organization [facility] , [facility] Address [address] [place] [address] Phone Care Team Providers Care Hand Candy Molder Name Role Phone Ron TORRES, Wyatt Ko Unavailable Unavail able ORAL TORRES, NICK Molina Unavailable [phone] Reason for Visit and Chief Complaint The Chief Complaint is: Right shoulder pain Problems Includes: Problems addressed during this encounter and other active Problems All Visits Onset Date Resolved Date Provider Condition S tatus Joint Pain, Localized in the Right Shoulder 02/29/2024 Christi Lazo PA-C Active Last Documented On 4 9:10AM ; [facility], [facility] Plan of Treatment Pending Tests Order Diagnosis Results Due Ordering P rovider Therapy - Physical Therapy Shoulder 06/25/24 Jason Haynes PA-C Last Documented On 4 3:43PM ; [facility] Therapy - Physical Therapy Lumbar 06/25/24 Jason Haynes PA-C Last Documented On 4 3:43PM ; [facility] Future Appointments Date Time Location Provi boone Follow Up 12/09/2024 1:00PM [facility] B Jason Haynes PA-C Last Documented On 5 1:53PM ; [facility] Instructions to patient Lose weight Last Documented On 4 3:23PM ; [facility], [facility] Assessments Includes: Assessments from this encounter No Assessments Recorded Instructions Includes: Instructions from this encounter Instructions to patient Lose weight Last Documented On 4 3:23PM ; [facility], [facility] Medical Equipment - Implanted Devices Includes: Current Devices No Medical Equipment Recorded Medications Includes: Medications discussed during this encounter and other current Medications Current Medications (continue as prescribed) Pravastatin Sodium 40 MG Oral Tablet 03/21/2024 Prov ider: NICK OSBORNE MD Diagnosis: Last Documented On 4 10:21AM By Flora Hillman ; [facility] Montelukast Sodium 10 MG Oral Tablet 03/21/2024 Prov ider: NICK OSBORNE MD Diagnosis: Last Documented On 4 10:21AM By Flora Hillman ; [facility] Anoro Ellipta 62.5-25 MCG/AC T Inhalation Aerosol Powder Breath Activated 03/18/2024 Provider: NICK OSBORNE MD Diagnosis: Last Documented On 4 10:21AM By Flora Hillman ; [facility] Pregabalin 100 MG Oral Capsule 02/18/2024 Provider: NICK OSBORNE MD Diagnosis: Last Documented On 4 9:07AM By Mala Acosta ; [facility], [facility] oxyCODONE-Acetaminophen 10-325 MG Oral Tablet 02/18/20 24 Provider: LUPILLO GALINDO DO Diagnosis: Last Documented On 4 9:07AM By Mala Acosta ; [facility] DULoxetine HCl 30 MG Oral Capsule Delayed Releas e Particles 02/15/2024 Provider: Diagnosis: Last Documented On 4 10:21AM By Flora Hillman ; [facility] clonazePAM 1 MG Oral Tablet 02/15/2024 Provider: NICK OSBORNE MD Diagnosis: Last Documented On 4 9:07AM By Mala Acosta ; [facility] DULoxetine HCl 30 MG Oral Capsule Delayed Releas e Particles 02/15/2024 Provider: Diagnosis: Last Documented On 4 9:07AM By Mala Acosta ; [facility] Glimepiride 2 MG Oral Tablet 02/13/2024 Provider: NICK OSBORNE MD Diagnosis: Last Documented On 4 10:22AM By Flora Hillman ; [facility] traZODone HCl 50 MG Oral Tablet 02/13/2024 Provider: Diagnosis: Last Documented On 4 10:22AM By Flora Hillman ; [facility] Verapamil HCl ER 100 MG Oral Capsule Extended Release 24 Hour 01/09/2024 Provider: NICK OSBORNE MD Diagnosis: Last Documented On 4 10:22AM By Flora Hillman ; [facility], [facility] Jardiance 10 MG Oral Tablet 12/29/2023 Provider: NICK OSBORNE MD Diagnosis: Last Documented On 4 10:22AM By Flora Hillman ; [facility] Diclofenac Sodium 1% External Gel 12/27/2023 Provide r: NICK OSBORNE MD Diagnosis: Last Documented On 4 10:22AM By Flora Hillman ; [facility], [facility] Past Medications on file Ondansetron HCl 4 MG Oral Tablet 04/21/2024 - 05/01/2024 Provider: Wyatt whitt MD Diagnosis: 1 q 8 hours prn post op nausea Last Documented On 4 7:19AM By Flora Hillman ; [facility] Mupirocin 2% External Ointment 04/21/2024 - 04/26/2024 Provider: Wyatt whitt MD Diagnosis: twice a day place in each no stril twice daily beginning 5 days before surgery Last Documented On 4 7:04AM By Flora Hillman ; [facility] Benzoyl Peroxide Wash 5% External Liquid 04/21/2024 - 04/22/2024 Provider: Wyatt whitt MD Diagnosis: use as directed by Dr. Velasquez Last Documented On 4 7:04AM By Flora Hillman ; [facility], [facility] Medications Administered Includes: Administered Medications from this encounter No Administered Medications Recorded Vital Signs Includes: Vital Signs from this encounter Vital Name 06/25/2024 03:23P Height (in) 63 Weight (lb) 180 Body Mass Index 31.9 Body Surface Area 1.8 Note: ab Last Documented: On 06/25/2024 3:23PM ; [facility] Results Includes: Results discussed during this encounter [...] ecchymosis Right shoulder has forward elevation to 90?. She has full active range motion of the right elbow wrist and hand. She is neurovascularly intact Assessment Right shoulder status post TSA Plan Patient will continue with conservative measures and progress to phase 2/3 of TSA PT protocol. Patient will follow up with us in 8-10 weeks with a new x-ray Social History Description Last Updated No caffeine use 02/29/2024 Last Documented On 4 3:23PM ; [facility] No recent change in diet 02/29/2024 Last Documented On 4 3:23PM ; [facility], [facility] Not a current smoker. 02/29/2024 Last Documented On 4 3:23PM ; [facility], [facility] Not exercising regularly 02/29/2024 Last Documented On 4 3:23PM ; [facility] Not using alcohol 02/29/2024 Last Documented On 4 3:23PM ; [facility], [facility] Not using drugs 02/29/2024 Last Documented On 4 3:23PM ; [facility], [facility] Smoking Status Unknown Procedures and Surgical History Includes: Procedures from this encounter Procedures Code Diagnosis Performing Provider Service L ocation Service Date an X-ray was performed 88948 Last Documented On 4 3:23PM ; [facility], [facility] Surgical History Last Updated History of History of Gallbladder 2023 Last Documented On 4 3:23PM ; [facility], [facility] History of hysterectomy 02/29/2024 Last Documented On 4 3:23PM ; [facility], [facility] Medical History Includes: Medical History addressed during this encounter Description Last Updated History of Anemia 02/29/2024 Last Documented On 4 3:23PM ; [facility] History of asthma 02/29/2024 Last Documented On 4 3:23PM ; [facility] History of diabetes mellitus 02/29/2024 Last Documented On 4 3:23PM ; [facility] History of diverticulitis of colon 02/28 Last Documented On 4 3:23PM ; [facility] History of heart disease 02/29/2024 Last Documented On 4 3:23PM ; [facility] History of Heartburn / Acid Reflux 02/28 Last Documented On 4 3:23PM ; [facility] History of Hypertension 02/29/2024 Last Documented On 4 3:23PM ; [facility] History of Irregular Heartbeat Last Documented On 4 3:23PM ; [facility] History of Sleep Apnea 02/29/2024 Last Documented On 4 3:23PM ; [facility] History of Thyroid Disease 02/29/2024 Last Documented On 4 3:23PM ; [facility] Use of CPAP 02/29/2024 Last Documented On 4 3:23PM ; [facility] Family History Includes: Family History addressed during this encounter Description Last Updated Diabetes mellitus 02/29/2024 Last Documented On 4 3:23PM ; [facility] Family history of cancer 02/29/2024 Last Documented On 4 3:23PM ; [facility] Family history of heart disease 02/29/20 24 Last Documented On 4 3:23PM ; [facility] Family history of systemic hypertension 02/29/2024 Last Documented On 4 3:23PM ; [facility] Review of Systems Includes: [...] Time Diagnosis Post Op Jason Haynes PA-C [facility] 4 3:03PM 3:44PM Insurance Includes: Active Insurance Policies Plan Name Member ID Group # Subscriber Relationship Effect madonna Dates 1 - Medicare Part B [facility] [id number] Tiera Pickens Chelsey Self 2 - [facility] [employer] [id number] Tiera Barbosa Self Clinical Notes Includes: Clinical Notes from this encounter * Progress note Date Encounter Last Documented by 06/25/2024 Post Op Last documented on 06/25/2024; 4:36 PM, Jason Dan; [facility] Active Problems & Conditions - Joint [...] Care Team - NICK OSBORNE MD - BR[employer] SURVEYING
== END 2024-11-11 23:59 | disposition home or self-care (01) ==
LOC: LAB.DROPOF 15:16
PROVIDERS: PCP Internal Medicine; Visit Provider Internal Medicine
DX: E78.5 Hyperlipidemia, unspecified (principal); I10 Essential (primary) hypertension; E11.59 Type 2 diabetes mellitus with other circulatory complications; E11.42 Type 2 diabetes mellitus with diabetic polyneuropathy; I25.10 Atherosclerotic heart disease of native coronary artery without angina pectoris
CPT/HCPCS: 80053; 80061; 83036; 85025

== ENCOUNTER 2024-11-24 13:09 | Outpatient (CLI) | payer MEDICARE, SELFPAY ==
--- NOTE | 2024-11-24 13:30 | CT_ITS ---
FINAL REPORT TECHNIQUE: Axial images were obtained through the chest without contrast. CLINICAL HISTORY: COPD, FOLLOW-UP LUNG NODULES., SOB, COUGH COMPARISON: CT low-dose 04/16/2024 FINDINGS: There is streak artifact from right shoulder prosthesis. The heart size is normal. There are dense vascular calcifications in the aortic arch. There is no pericardial or pleural effusion. Again noted is an 8 mm noncalcified nodule in the medial right lower lobe, pleural-based, well seen on image 134 series 3. There is a stable 6 mm nodule in the medial left lower lobe on image 187 of series 3. Limited images of the upper abdomen demonstrate no acute findings. The gallbladder is absent. IMPRESSION: Stable bilateral lung nodules without new nodules identified. Reviewed, Interpreted and Dictated by Gabino Zuluaga MD Transcribed by Cherelle Stiles Authenticated and [facility]
== END 2024-11-24 23:59 | disposition home or self-care (01) ==
LOC: RAD 13:10
PROVIDERS: PCP Internal Medicine; Visit Provider Internal Medicine
DX: R91.8 Other nonspecific abnormal finding of lung field (principal); J44.9 Chronic obstructive pulmonary disease, unspecified
CPT/HCPCS: 71250

== ENCOUNTER 2024-12-18 13:53 | Outpatient (CLI) | payer MEDICARE, SELFPAY ==
--- NOTE | 2024-12-18 13:59 | XR_ITS ---
FINAL REPORT CLINICAL HISTORY: Right chest pain, COPD pt states f/u for pneumonia COMPARISON: 10/07/2024 FINDINGS: PA and lateral views of the chest were obtained. The cardiac and mediastinal silhouettes are within normal limits. The lungs are clear. There is no pleural effusion or pneumothorax. No acute osseous abnormality is identified. IMPRESSION: No radiographic evidence of acute cardiac or pulmonary disease. Reviewed, Interpreted and Dictated by Rachna Mae MD Transcribed by Cherelle Stiles Authenticated and [facility]
[2024-12-18 19:21] LABS: Blood Urea Nitrogen 20 mg/dl (7-17); Estimated Glomerular Filt Rate 97 ml/min (>60); GFR (African American) 118 ML/MIN (>60)
== END 2024-12-18 23:59 | disposition home or self-care (01) ==
LOC: RAD 13:56
PROVIDERS: PCP Internal Medicine; Visit Provider Internal Medicine
DX: R07.9 Chest pain, unspecified (principal); J44.9 Chronic obstructive pulmonary disease, unspecified; I10 Essential (primary) hypertension; E11.42 Type 2 diabetes mellitus with diabetic polyneuropathy; I26.99 Other pulmonary embolism without acute cor pulmonale
CPT/HCPCS: 71046; 82565; 84520

== ENCOUNTER 2024-12-19 09:20 | Outpatient (CLI) | payer MEDICARE, SELFPAY ==
--- NOTE | 2024-12-19 09:30 | CT_ITS ---
FINAL REPORT TECHNIQUE: Axial imaging of the chest is obtained after the administration of contrast. 3-D MIP reformatted images were also obtained and reviewed per PE protocol. This study was performed with techniques to keep radiation doses as low as reasonably achievable (ALARA). Individualized dose reduction techniques using automated exposure control or adjustment of mA and/or kV according to the patient's size were employed. CLINICAL HISTORY: Right chest pain, COPD COMPARISON: 11/24/2024 CT of the chest FINDINGS: The pulmonary arteries are well filled. There is no evidence of pulmonary embolus. There is no aortic dissection. Heart size is normal. There is no mediastinal, hilar, or axillary lymphadenopathy. Multiple pulmonary nodules are again noted, which were also seen on the prior CT of the chest from 11/24/2024. There is a 5 mm medial left lower lobe nodule, stable, best seen on image #54 of series 3. There is a medial left upper lobe 12 mm nodule, stable, best seen on image #31 of series 3. There is a stable subpleural right upper lobe nodule, seen on image #26 of series 3, and a stable subpleural right upper lobe nodule adjacent to the minor fissure. There is no pleural or pericardial effusion. Limited evaluation of the upper abdomen is without acute abnormality. No acute osseous abnormality. IMPRESSION: No evidence of pulmonary embolism or aortic dissection. Multiple pulmonary nodules are present, seen on the prior CT of 11/24/2024. No new nodules or masses are identified. Reviewed, Interpreted and Dictated by Rachna Mae MD Transcribed by Shante Vasquez Authenticated and [facility]
[2024-12-19] MEDS: IOPAMIDOL-370 (76%);100ML BOTTLE 85 ML IV (09:49)
[2024-12-19] MEDS: SODIUM CHLORIDE 0.9% 10ML SYR (RAD ONLY) 10 ML IV (09:49)
[2024-12-19] MEDS: 0.9 % SODIUM CHLORIDE 50 ML VIAL IV (09:49)
== END 2024-12-19 23:59 | disposition home or self-care (01) ==
LOC: RAD 09:22
PROVIDERS: PCP Internal Medicine; Visit Provider Internal Medicine
DX: R91.8 Other nonspecific abnormal finding of lung field (principal); R07.89 Other chest pain; J44.9 Chronic obstructive pulmonary disease, unspecified
CPT/HCPCS: 71275; Q9967

== ENCOUNTER 2025-04-06 08:24 | Day surgery (SDC) | payer MEDICARE, SELFPAY ==
[2025-03-31 13:50] VITALS: BMI 31.8
--- NOTE | 2025-04-03 13:23 | EXP.HP ---
History of Present Illness *Admission Date: 04/06/25 *Reason for visit:: Personal history of adenomatous colon polyps *History of present illness: Mrs. Barbosa is a 74-year-old female who is here for screening/surveillance colonoscopy secondary to a personal history of adenomatous colon polyps. The patient did have a colonoscopy in October 2021 (Rocco Chery MD) at which time 2 polyps (tubular adenomas x 2) were removed. The examination is deemed medically necessary for screening/surveillance colonoscopy. The patient has been seen, interviewed and examined prior to the procedure by both myself and the anesthesia provider. [facility] Disclaimer: The information contained in this section may have been updated after the patient was seen, as this information can be updated by other users. Medical History COPD (chronic obstructive pulmonary disease) Asthma Anxiety and depression Acne History of gastroesophageal reflux (GERD) Diabetes mellitus, type 2 Hyperlipidemia Hypertension History of anemia Polyp of tongue Surgical History History of appendectomy History of cholecystectomy History of back surgery Hx of shoulder surgery History of colonoscopy History of hysterectomy Family History Other Cancer Colon polyp Heart disease Social History Smoking Status: Former smoker tobacco type: cigarettes packs per day: 1 second hand exposure: No alcohol intake: never substance use type: denies use current occupational status: disabled Travel in the last 8 weeks?: None household members: spouse housing: house current occupational exposures/hazards: No caffeine: Yes Have you lived/traveled outside US in past 30 days?: No Contact w/someone who lives/traveled outside US past 30 days?: No Exposure to someone with infectious disease in past 14 days?: No Do you have a fever (greater than 100.4 F or 38 C)?: No Have you tested positive for COVID-19?: No Exposed to someone with COVID-19 in past 14 days?: No Do you have a sore throat?: No Do you have a cough?: No Do you have any weakness?: No Are you experiencing any nausea/vomitting?: No Do you have any diarrhea?: No Are you experiencing any unusual bleeding?: No Do you have any muscle aches/pain?: No Do you have any abdominal pain?: No Are you experiencing loss of taste or smell?: No Other Medical History Have you received the Flu Vaccine for this season: Yes Have you received the Pneumonia Vaccine: Yes Review of Systems Review of Systems Review of systems (narrative): Negative *Cardiovascular Comments: Negative *Gastrointestinal Comments: Negative *Genitourinary Comments: Negative *Musculoskeletal Comments: Negative *Neurologic Comments: Negative Meds Home Medications and Allergies Home Medications ?Medication ?Instructions ?Recorded ?Confirmed ?Type blood sugar diagnostic (OneTouch #10 ea 02/05/24 04/06/25 History Ultra Test strips) nitroglycerin 0.4 mg sublingual 0.4 mg sublingual DAILY PRN . 02/05/24 04/06/25 History tablet oxycodone-acetaminophen 10 mg-325 1 tab PO TID PRN . 05/06/24 04/06/25 History mg tablet duloxetine 60 mg capsule,delayed 60 mg PO DAILY Depression #90 caps 05/12/24 04/06/25 Rx release cyanocobalamin (vitamin B-12) See Rx Instructions .Route 07/15/24 04/06/25 Rx 1,000 mcg tablet .COMPLEX #90 tabs metformin 1,000 mg tablet 1,000 mg PO BIDWMEAL Diabetes #180 07/25/24 04/06/25 Rx tabs montelukast 10 mg tablet See Rx Instructions .Route 09/25/24 04/06/25 Rx .COMPLEX #90 tabs ferrous sulfate 325 mg (65 mg See Rx Instructions .Route 10/08/24 04/06/25 Rx iron) tablet (FeroSul) .COMPLEX #180 tabs pregabalin 100 mg capsule 100 mg PO BID #180 caps 11/24/24 04/06/25 Rx pantoprazole 40 mg tablet,delayed See Rx Instructions .Route 12/31/24 04/06/25 Rx release .COMPLEX #90 tabs verapamil 100 mg capsule 24hr See Rx Instructions .Route 01/21/25 04/06/[address],ext.release .COMPLEX #90 caps pravastatin 40 mg tablet 40 mg PO DAILY Cholesterol #90 tabs 01/22/25 04/06/25 Rx duloxetine 30 mg capsule,delayed 30 mg PO ONCE #90 caps 02/10/25 04/06/25 Rx release glimepiride 2 mg tablet 2 mg PO DAILY Diabetes #90 tabs 02/13/25 04/06/25 Rx empagliflozin 10 mg tablet 10 mg PO DAILY Diabetes #90 tabs 03/04/25 04/06/25 Rx lisinopril 10 mg tablet 10 mg PO DAILY #90 tabs 03/04/25 04/06/25 Rx umeclidinium 62.5 mcg-vilanterol See Rx Instructions .Route 03/04/25 04/06/25 Rx 25 mcg/actuation powdr for .COMPLEX #60 ea inhalation (Anoro Ellipta) clonazepam 1 mg tablet (Klonopin) 1 mg PO TID PRN Nerves #90 tabs 03/12/25 04/06/25 Rx sodium,potassium,mag sulfates 17.5 See Rx Instructions PO .COMPLEX 03/24/25 04/06/25 Rx gram-3.13 gram-1.6 gram oral soln #354 mL (Suprep Bowel Prep Kit) trazodone 100 mg tablet 100 mg PO HS #30 tabs 04/03/25 04/06/25 Rx New Prescriptions to Start Prescriptions: Allergies Allergy/AdvReac Type Severity Reaction Status Date / Time codeine (CODEINE) Allergy Unknown FACIAL Verified 04/06/25 08:38 ITCHING hydrocodone (HYDROCODONE) Allergy Unknown ITCHING Verified 04/06/25 08:38 Exam Data for Last 24 hours I & O for Last 24 hours: Intake & Output 03/31/25 04/01/25 04/02/25 04/03/25 23:59 23:59 23:59 23:59 Weight 180 lb *Routine HEENT Exam Head: Present normocephalic Eye: Present EOMI and PERRL ENT: Present mucous membranes moist *Routine Neck Exam Neck: Present supple *Routine Respiratory Exam Respiratory: Present CTA bilaterally *Routine Cardiovascular Exam Cardiovascular: Present RRR *Routine Abdominal Exam Abdominal: Present soft and normoactive bowel sounds; Absent tenderness *Routine Rectal Exam Rectal:: deferred *Routine Genitalia Exam Genitalia:: deferred *Routine Extremities Exam Extremities: Absent cyanosis, clubbing or edema *Routine Skin Exam Skin: Present warm; Absent rash *Routine Neurological Exam Neurological: Present alert and oriented X3 Assessment and Plan *Assessment and plan (1) Personal history of adenomatous and serrated colon polyps: Status: Acute Category: Medical Code(s): Z86.0101 - Personal history of adenomatous and serrated colon polyps (2) Screening for colon cancer: Status: Acute Category: Medical Code(s): Z12.11 - Encounter for screening for malignant neoplasm of colon Plan A/P: 1. Personal history of adenomatous colon polyps is the preprocedural diagnosis. The patient will be anesthetized/sedated using MAC sedation. The patient has been seen and examined. Cardiac and lung assessment prior to the examination is stable. Proceed with planned screening colonoscopy.
--- NOTE | 2025-04-06 07:16 | P.PCN_ITS ---
[facility] Procedure Note Date: 04/06/25 Time: 09:52 Procedure Note:: Colonoscopy Procedure Report: Colonoscopy with cold snare polypectomy Endoscopist: Braeden Luque II, MD Referring physician: Nick Osborne MD Date of Procedure: April 06, 2025 Equipment: Olympus [id number] adult colonoscope Sedation: MAC sedation Indication: Mrs. Barbosa is a 74-year-old female who is here for screening/surveillance colonoscopy secondary to a personal history of adenomatous colon polyps. The patient did have a colonoscopy in October 2021 (Rocco Chery MD) at which time 2 polyps (tubular adenomas x 2) were removed. The patient does report some bright red blood on the toilet tissue that occurs about once weekly with her bowel movement. She reports no abdominal pain, weight loss, change in her bowel habits or family history of colon cancer. Her mother had multiple colonic polyps. Her mother also had cholangiocarcinoma (bile duct cancer). The examination is deemed medically necessary for screening/surveillance colonoscopy. Procedure: Prior to the procedure, a history and physical exam was performed, and patient's medications and allergies were reviewed. The risks, benefits and alternatives of the sedation and procedure were discussed with the patient. All questions were answered and informed consent was obtained. The patient was brought to the procedure room. Patient identification and proposed procedure were verified by the physician and the nurse. The patient was placed in a left lateral decubitus position and the scope was passed under direct vision. Throughout the procedure, the patient's blood pressure, pulse, and oxygen saturations were monitored continuously. The colonoscopy was accomplished without difficulty. The patient tolerated the procedure well. Findings: On digital rectal examination there was normal rectal tone. There were no external hemorrhoids. The colonoscope was introduced through the anal canal to the rectum and advanced to the cecum. The ileocecal valve and appendiceal orifice were identified. The scope was advanced a short distance into the ileum which appeared grossly normal. The scope was then withdrawn into the colon. There were 6 diminutive colonic polyps (cecum x 2 (4 and 5 mm), transverse x 2 (4 and 4 mm) and descending x 2 (4 and 4 mm)). These were all removed via cold snare polypectomy. The remaining cecum, ascending and transverse colon and mucosa were grossly normal. There were scattered diverticuli throughout the descending and sigmoid colon (LEFT colon). The rectum itself was normal. Upon retroflexion within the rectum there were grade 1-2 internal hemorrhoids. The preparation was excellent throughout with [place] Preparation Score of 9. The cecal time was 12 minutes. Impression: 1. Diminutive colonic polyps x 6 2. Left-sided diverticulosis 3. Grade 1-2 internal hemorrhoids Plan: I will follow-up the polyp histology and we will discuss whether further surveillance is warranted. I would encourage psyllium bulking fiber supplementation on a long-term daily maintenance basis.
[2025-04-06 08:43] VITALS: BP 134/70; PULSE 94; RESP 18; TEMP 36.7; O2SAT 93
[2025-04-06] MEDS: LACTATED RINGERS 1000ML 1,000 ML 50 ML IV (08:52)
[2025-04-06 08:56] LABS: POC Glucose,Bedside 152 gm/dL (70-110)
--- NOTE | 2025-04-06 09:04 | P.PNANES_ITS ---
[facility] Disclaimer: The information contained in this section may have been updated after the patient was seen, as this information can be updated by other users. Medical History COPD (chronic obstructive pulmonary disease) Asthma Anxiety and depression Acne History of gastroesophageal reflux (GERD) Diabetes mellitus, type 2 Hyperlipidemia Hypertension History of anemia Polyp of tongue Surgical History History of appendectomy History of cholecystectomy History of back surgery Hx of shoulder surgery History of colonoscopy History of hysterectomy Family History Other Cancer Colon polyp Heart disease Social History Smoking Status: Former smoker tobacco type: cigarettes packs per day: 1 second hand exposure: No alcohol intake: never substance use type: denies use current occupational status: disabled Travel in the last 8 weeks?: None household members: spouse housing: house current occupational exposures/hazards: No caffeine: Yes Have you lived/traveled outside US in past 30 days?: No Contact w/someone who lives/traveled outside US past 30 days?: No Exposure to someone with infectious disease in past 14 days?: No Do you have a fever (greater than 100.4 F or 38 C)?: No Have you tested positive for COVID-19?: No Exposed to someone with COVID-19 in past 14 days?: No Do you have a sore throat?: No Do you have a cough?: No Do you have any weakness?: No Are you experiencing any nausea/vomitting?: No Do you have any diarrhea?: No Are you experiencing any unusual bleeding?: No Do you have any muscle aches/pain?: No Do you have any abdominal pain?: No Are you experiencing loss of taste or smell?: No [facility] Anesthesia Checklist Patient Identification Patient Identification: Arm Band and Verbal (Name & ) Structural Data Admitted From: Home Planned Operative Procedure/s: colonscopy Consent for Planned Operative Procedure(s) Verified: Yes Verified Documents: Surgical Consent and History and Physical NPO Status Verified Time NPO: 00:00 Additional verifications Anesthesia Reactions: No Hx Blood Transfusions: No Blood Transfusion Reaction: No Airway Assessment Mallampati Score:: Class II Dentition: Good Dentition Neurological Assessment Level of Consciousness: Awake, Alert and Appropriate Hx Seizures: No Numbness or tingling in extremities: No Anesthesia Plan Anesthesia Risk discussed: Yes Anesthesia Plan: Verified ASA Class: III Anesthesia Type: MAC
[2025-04-06 09:54] VITALS: BP 106/59; PULSE 71; RESP 16; TEMP 36.1; O2SAT 95
[2025-04-06 10:04] VITALS: BP 109/50; PULSE 69; RESP 16; O2SAT 95
[2025-04-06 10:14] VITALS: BP 103/53; PULSE 67; RESP 16; O2SAT 95
[2025-04-06 10:24] VITALS: BP 146/68; PULSE 85; RESP 18; O2SAT 95
== END 2025-04-06 10:27 | disposition home or self-care (01) ==
PROVIDERS: PCP Internal Medicine; Visit Provider Internal Medicine Gastroenterology
PROC: 0DJD8ZZ Inspection of Lower Intestinal Tract, Via Natural or Artificial Opening Endoscopic (ICD-10-PCS; CPT 45378; principal; 2025-04-06 10:00)
DX: Z12.11 Encounter for screening for malignant neoplasm of colon (principal); D12.0 Benign neoplasm of cecum; D12.4 Benign neoplasm of descending colon; K63.5 Polyp of colon; K57.30 Diverticulosis of large intestine without perforation or abscess without bleeding; K64.1 Second degree hemorrhoids; Z86.0101 Personal history of adenomatous and serrated colon polyps; J44.89 Other specified chronic obstructive pulmonary disease; F41.9 Anxiety disorder, unspecified; F32.A Depression, unspecified; K21.9 Gastro-esophageal reflux disease without esophagitis; E11.9 Type 2 diabetes mellitus without complications; E78.5 Hyperlipidemia, unspecified; I10 Essential (primary) hypertension; D64.9 Anemia, unspecified; Z87.891 Personal history of nicotine dependence; Z79.84 Long term (current) use of oral hypoglycemic drugs; Z79.899 Other long term (current) drug therapy; Z88.5 Allergy status to narcotic agent
CPT/HCPCS: 45385; 82962; J2003; J2704; J7120

== ENCOUNTER 2025-05-11 10:05 | Outpatient (CLI) | payer MEDICARE, SELFPAY ==
[2025-05-11 17:10] LABS: Alanine Aminotransferase 21 U/L (12-78); Albumin Level 3.4 g/dl (3.5-5.0); Albumin/Globulin Ratio 1.1 (1.1-1.8); Alkaline Phosphatase 59 U/L (38-126); Anion Gap 14.7 mEq/L (5-15); Aspartate Amino Transferase 29 U/L (14-36); Bilirubin,Total 0.4 mg/dl (0.2-1.3); Blood Urea Nitrogen 16 mg/dl (7-17); Calcium 8.6 mg/dl (8.4-10.2); Carbon Dioxide 26 mmol/L (22.0-30.0); Chloride 100 mmol/L (98-107); Cholesterol 131 mg/dl (140-200); Creatinine,Serum 0.60 mg/dl (0.52-1.04); Estimated Glomerular Filt Rate 97 ml/min (>60); GFR (African American) 118 ML/MIN (>60); Globulin 3.0 g/dL (1.3-3.2); Glucose 111 mg/dl (74-100); HDL Cholesterol 40 mg/dl (40-60); Potassium 4.7 mmoL/L (3.5-5.1); Sodium 136 mmol/L (136-145); Total Protein,Serum 6.4 g/dl (6.3-8.2); Triglycerides 157 mg/dl (30-150)
[2025-05-12 04:13] LABS: Hemoglobin A1C 6.8 % (4.0-6.0)
--- OUTSIDE RECORDS SUMMARY | 2025-05-12 09:52 | XMS_ITS | Encounter Summary ---
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 ENGINEER - [facility] Social History Tobacco Use Types Packs/Day Years Used Date Smoking Tobacco: Former Cigarettes Q uit: 2006 Smokeless Tobacco: Never Alcohol Use Standard Drinks/Week Comments No 0 (1 standard drink = 0.6 oz pur e alcohol) Comments Unknown Sex and Gender Information Value Date Recorded Sex Assigned at Female 12/24/2024 4:02 PM EDT Legal Sex Female 11:36 AM EDT Gender Identity Not on file Sexual Orientation Not on file documented as of this encounter Plan of Treatment Upcoming Encounters Date Type Department Care Team (Late st Contact Info) Description 04/22/2026 2:45 PM EDT Office Visit [facility] [address] [place] [address] [place] [address] Bhanu Lu MD [address] [place] [address] [address] [place] [address] documented as of this encounter Visit Diagnoses Not on filedocumented in this encounter Care Teams Inspector Assemblies And Installations Relationship Specialty Start Date End Date Nick Osborne MD [address] [facility] [address] [place] [address] PCP - General Internal Medicine 12/19/16 documented as of this encounter
--- OUTSIDE RECORDS SUMMARY | 2025-05-12 09:52 | XMS_ITS | Encounter Summary ---
Author Organization [facility] Address [address] [place] [address] Care Team Providers Care Wire Inserter Name Role Phone Nick Osborne MD Primary Care Provider [phone] Encounter Details Date Type Department Care Team (Late st Contact Info) Description 09/19/2017 External CPT II GUARD DANCE HALL - [facility] Social History Tobacco Use [...] Description 04/22/2026 2:45 PM EDT Office Visit [facility] [address] [address] Bhanu Lu MD [address] [place] [address] [address] [place] [address] documented as of this encounter Visit Diagnoses Not on filedocumented in this encounter Care Teams Wire Inserter Relationship Specialty Start Date End Date Nick Osborne MD [address] [facility] [address] [place] [address] PCP - General Internal Medicine 12/19/16 documented as of this encounter
--- OUTSIDE RECORDS SUMMARY | 2025-05-12 09:52 | XMS_ITS | Referral Summary ---
Author Organization [employer] ([place], [place], [place], [place]) Address [address] [place] [address] Care Team Providers Care Night Monitor Name Role Phone Unavailable Primary Care Provider Unavailabl e Social History Tobacco Use Types Packs/Day Years Used Date Smoking Tobacco: Never Assessed Food Insecurity Answer Date Recorded Food run out past 12 months Not on file 03/16 Food did not last past 12 months Not on file 03/27/2024 Employment Answer Date Recorded Help finding and keeping a job Not on file 0 03/27/2024 Family and Community Support Answer Keith e Recorded Help with Day to Day Activities Not on file 03/27/2024 Feeling Lonely or Isolated Not on file 03/27 Educational Attainment Answer Date Lei rded Speak language other than [place] at home Not on file 03/27/2024 Want help with school or training Not on file 03/27/2024 Substance Use Answer Date Recorded Used prescription meds for non-medical reasons N ot on file 03/27/2024 Used illegal drugs past 12 months Not on file 03/27/2024 Comments Unknown Sex and Gender Information Value Date Recorded Sex Assigned at Not on file Legal Sex Female 5:17 PM CDT Gender Identity Not on file Sexual Orientation Not on file Plan of Treatment Not on file
--- OUTSIDE RECORDS SUMMARY | 2025-05-12 09:52 | XMS_ITS | Encounter Summary ---
Author Organization [facility] Address [address] [place] [address] Care Team Providers Care Intelligence Consultant Name Role Phone Nick Osborne MD Primary Care Provider Encounter Details Date Type Department Care Team (Late st Contact Info) Description 03/13/2017 External CPT II CHISEL GRINDER - [facility] Social History Tobacco Use [...] Description 04/22/2026 2:45 PM EDT Office Visit [facility] [address] [address] [place] [address] Bhanu Lu MD [address] [place] [address] [address] [place] [address] documented as of this encounter Visit Diagnoses Not on filedocumented in this encounter Care Teams Intelligence Consultant Relationship Specialty Start Date End Date Nick Osborne MD [address] [place] [facility] [address] [place] [address] PCP - General Internal Medicine 12/19/16 documented as of this encounter
--- OUTSIDE RECORDS SUMMARY | 2025-05-12 09:52 | XMS_ITS | Encounter Summary ---
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 - [facility] Social History Tobacco Use [...] Description 04/22/2026 2:45 PM EDT Office Visit [facility] [address] [place] [address] Bhanu Lu MD [address] [place] [address] [address] [place] [address] documented as of this encounter Visit Diagnoses Not on filedocumented in this encounter Care Teams Head Inspector Relationship Specialty Start Date End Date Nick Osborne MD [address] [place] [facility] [address] [place] [address] PCP - General Internal Medicine 12/19/16 documented as of this encounter
--- OUTSIDE RECORDS SUMMARY | 2025-05-12 09:52 | XMS_ITS | Clinical Summary ---
Author Organization [facility] ([place], [place], [place], [place]) Address [address] [place] [address] Care Team Providers Care Grassland Conservationist Name Role Phone Unavailable Primary Care Provider [...] Date Lei rded Speak language other than [place] at home Not on file 03/27/2024 Want [...] Orientation Not on file Plan of Treatment Health Maintenance Due Date Last Done Comments CT Colonography 1949 Colonoscopy 1949 Colorectal Cancer Screening 1949 DXA SCAN 1949 FOBT/FIT 1949 Fit-DNA (Cologuard) 1949 Sigmoidoscopy 1949 Depression Screening (12+) 1961 Tobacco Cessation Counseling and Screening (12+) 1961 Hepatitis C Screening 1967 DTAP/TDAP/TD VACCINES (1 - Tdap) 1968 Shingles Vaccine (Zoster) (2 of 2) 06/08/20162015 Falls Risk Screening 07/16/2024 Respiratory Syncytial Virus (RSV) Adult or (1 - 1-dose 75+ series) 2024 COVID-19 VACCINE (2024-2 6 season) 2025 05/02/2022, 05/09/2021, 09/15/2020, Additional history exists Influenza Vaccine (#1) 2025 Pneumococcal 50+ years Completed 3, 04/17/2018, 04/05/2017, Additional history exists
--- OUTSIDE RECORDS SUMMARY | 2025-05-12 09:52 | XMS_ITS | Encounter Summary ---
Author Organization [facility] Address [address] [place] [address] Care Team Providers Care Vice President Biostatistics Name Role Phone Nick Osborne MD Primary Care Provider [phone] Encounter Details Date Type Department Care Team (Late st Contact Info) Description 07/21/2019 External CPT II COW TESTER - [facility] Social History Tobacco Use [...] 04/22/2026 2:45 PM EDT Office Visit [facility] [address] [place] [address] [place] [address] Bhanu Lu MD [address] [place] [address] [address] [place] [address] documented as of this encounter Visit Diagnoses Not on filedocumented in this encounter Care Teams Vice President Biostatistics Relationship Specialty Start Date End Date Nick Osborne MD [address] [place] [facility] [address] [place] [address] PCP - General Internal Medicine 12/19/16 documented as of this encounter
--- OUTSIDE RECORDS SUMMARY | 2025-05-12 09:52 | XMS_ITS | Clinical Summary ---
Author Organization [facility] Address [address] [place] [address] Care Team Providers Care Construction Engineer Name Role Phone Nick Osborne MD Primary Care Provider [phone] Allergies Active Allergy Reactions Criticality Noted Date Comments Codeine Itching Low 10/28/2021 Hydrocodone Itching Low 10/28/2021 Medications pravastatin (PRAVACHOL) 40 MG tablet Take 1 tablet by mouth Daily. Active montelukast (SINGULAIR) 10 MG tablet Take 1 tablet by mouth Every Night. Active verapamil (VERELAN) 100 MG 24 hr capsule Take 1 capsule by mouth Every Night. Active metFORMIN (GLUCOPHAGE) 1000 MG tablet Take 1 tablet by mouth 2 (Two) Times a Day With Meals. Active traZODone (DESYREL) 50 MG tablet Take 1 tablet by mouth Every Night. Active DULoxetine (CYMBALTA) 60 MG capsule Take by mouth Daily. 09/26/19 18 Active Jardiance 10 MG tablet Take 1 tablet by mouth Every Morning. 10/13/19 21 Active lisinopril (PRINIVIL,ZESTRIL) 10 MG tablet Take 1 tablet by mouth Daily. 08/01/19 23 Active vitamin B-12 (CYANOCOBALAMIN) 1000 MCG tablet Take 1 tablet by mouth Daily. 08/30/19 23 Active FeroSul 325 (65 Fe) MG tablet Take 1 tablet by mouth Every 12 (Twelve) Hours. 09/01/19 23 Active pregabalin (LYRICA) 100 MG capsule Take 1 capsule by mouth 2 (Two) Times a Day. 09/21/19 Active Anoro Ellipta 62.5-25 MCG/ACT aerosol powder inhaler Inhale 1 puff Daily. 09/21/19 23 Active glimepiride (AMARYL) 2 MG tablet Take 1 tablet by mouth Daily. 08/02/19 23 Active pantoprazole (PROTONIX) 40 MG EC tablet Take 1 tablet by mouth Daily. Active clonazePAM (KlonoPIN) 1 MG tablet Take 1 tablet by mouth 3 times a day. 10/17/19 24 Active nitroglycerin (NITROSTAT) 0.4 MG SL tablet 1 under the tongue as needed for angina, may repeat q5mins for up three doses 100 tablet 11 10/25/19 24 Active ondansetron (ZOFRAN) 4 MG tablet Take 1 tablet by mouth Every 8 (Eight) Hours As Needed for Post Op Nausea 30 tablet 4 2:43 PM EDT 04/21/20 24 Active mupirocin (BACTROBAN) 2 % ointment Place in each nostril twice daily beginning 5 days before surgery 22 g 4 2:43 PM EDT 04/21/20 24 Active OneTouch Ultra Test test strip 1 each by Other route Daily. 04/05/20 24 Active hyoscyamine sulfate (ANASPAZ) 0.125 MG tablet dispersible disintegrating tablet Place on the tongue Every 4 (Four) Hours As Needed. Active oxyCODONE-acetamin ophen (PERCOCET) 10-325 MG per tablet Take 1 tablet by mouth Every 6 (Six) Hours As Needed for Moderate Pain. Active DULoxetine (CYMBALTA) 30 MG capsule Take 1 capsule by mouth Daily. Active oxyCODONE (Roxicodone) 5 MG immediate release tabletIndications: Status post total shoulder arthroplasty, right Take 1 tablet by mouth Every 4 (Four) Hours As Needed for Moderate Pain. 20 tablet 4 3:15 PM EDT 05/08/20 24 Active naloxone (NARCAN) 4 MG/0.1ML nasal spray Call 911. Don't prime. [place] in 1 nostril for overdose. Repeat in 2-3 minutes in other nostril if no or minimal breathing/respon siveness. 2 each 4 3:15 PM EDT 05/08/20 Active ipratropium-albute rol (DUO-NEB) 0.5-2.5 mg/3 ml nebulizer Take 3 mL by nebulization Every 4 (Four) Hours As Needed for Shortness of Air. 05/13/20 Active polyethylene glycol (MIRALAX) 17 g packet Take 17 g by mouth Daily As Needed (Use if senna-docusate is ineffective). 05/13/20 Active Additional Information Patient taking differently:17 g OralAs Needed, Use if senna-docusate is ineffective, Reported on 12/25/2024 Active Problems Problem Noted Date Diagnosed Date Glenohumeral arthritis, right 05/08/2024 Glenohumeral arthritis 05/08/2024 COPD (chronic obstructive pulmonary disease) Anxiety 05/08/2024 Hyperlipidemia 05/08/2024 DM2 (diabetes mellitus, type 2) 05/08/2024 Status post total shoulder arthroplasty, right 1 PHU on CPAP 05/08/2024 Immunizations Immunization Administration Dates Next Due COVID-19 (MODERNA) 1st,2nd,3 rd Dose Monovalent 09/15/2020,08/18/2020 Fluzone High-Dose 65+YRS 04/17/2018,04/05/2017,0 04/13/2016 Hepatitis A 02/24/2019,07/24/2018 Pneumococcal Conjugate 13-Valent (PCV13) 017 Pneumococcal Polysaccharide (PPSV23) 04/17/2018, 02/19/2015 Zostavax 04/13/2016 Family History Medical History Relation Name Comments Heart attack Father Hypertension Father Cancer Mother Relation Name Status Comments Father Mother Social History Tobacco Use Types Packs/Day Years Used Date Smoking Tobacco: Former Cigarettes Q uit: 2006 Passive Smoke Exposure: Past Smokeless Tobacco: Never Tobacco Cessation:Counseling Given: Not Answered Alcohol Use Standard Drinks/Week Comments No 0 (1 standard drink = 0.6 oz pur e alcohol) Abuse Screen Answer Date Recorded Feels Unsafe at Home or Work/School no 04/25/2024 Feels Threatened by Someone no 04/15 Does Anyone Try to Keep You From Having Contact with Others or Doing Things Outside Your Home? no 04/25/2024 Physical Signs of Abuse Present no 04/25/2024 Housing Stability Answer Date Recorded Current Living Arrangements home 04/16 Potentially Unsafe Housing Conditions Not on milena e 05/08/2024 Disabilities Answer Date Recorded Difficulty Concentrating, Remembering or Making Decisions yes 05/08/2024 Difficulty Managing Errands Independently yes 05/08/2024 Education Answer Date Recorded Help with school or training? Not on file Preferred Language Burmese 04/25/2024 Comments Unknown Sex and Gender Information Value Date Recorded Sex Assigned at Female 12/24/2024 4:02 PM EDT Legal Sex Female 11:36 AM EDT Gender Identity Not on file Sexual Orientation Not on file Last Filed Vital Signs Vital Sign Reading Time Taken Comments Blood Pressure 116/60 12/25/2024 2:41 PM EDT Pulse 87 12/25/2024 2:41 PM EDT Temperature 36.4 C (97.6 F) 05/13/2024 10:43 AM EDT Respiratory Rate 18 05/13/2024 10:43 AM EDT Oxygen Saturation 93% 12/25/2024 2:41 PM EDT Inhaled Oxygen Concentration - - Weight 83.5 kg (184 lb) 12/25/2024 2:41 PM EDT Height 162.6 cm (5' 4 ) 12/25/2024 2:41 PM EDT Body Mass Index 31.58 12/25/2024 2:41 PM EDT Plan of Treatment Upcoming Encounters Date Type Department Care Team (Late st Contact Info) Description 04/22/2026 2:45 PM EDT Office Visit [facility] [address] [place] [address] [place] [address] Bhanu Lu MD [address] [place] [address] Health Maintenance Due Date Last Done Comments DXA SCAN 1949 DIABETIC FOOT EXAM 1959 URINE MICROALBUMIN-CREATININ E RATIO (uACR) 1959 TDAP/TD VACCINES (1 - Tdap) 1968 COLOGUARD 1994 COLON CANCER SCREENING 5 YEA R SIGMOIDOSCOPY 1994 CT COLONOGRAPHY 1994 FECAL OCCULT BLOOD TEST 1994 FIT Testing (1 year) 1994 ZOSTER VACCINE (2 of 3) 06/08/2016 04/13/2016 ANNUAL WELLNESS VISIT 01/09/2017 HEPATITIS C SCREENING 01/09/2017 DIABETIC EYE EXAM 06/20/2020 06/20/2019, 04/11/2016 LIPID PANEL 05/01/2024 05/01/2023, 10/14, 05/02/2022, Additional history exists RSV Vaccine - Adults (1 - 1- dose 75+ series) 2024 HEMOGLOBIN A1C 10/24/2024 04/25/2024, 04/15, 01/31/2023, Additional history exists INFLUENZA VACCINE 02/13/2025 05/06/2024, , 05/01/2023, Additional history exists COVID-19 Vaccine (2024-2 6 season) 2025 05/02/2022, 05/09/2021, 09/15/2020, Additional history exists COLONOSCOPY 10/20/2031 10/19/2021, 04/17, 05/14/2017 COLORECTAL CANCER SCREENING 10/20/2031 MAMMOGRAM Discontinued 10/24/2022, 10/14, 09/26/2022, Additional history exists Pneumococcal Vaccine 50+ Completed 023, 04/17/2018, 04/05/2017, Additional history exists Goals Goal Patient Goal Type Associated Problems Recent Progress Patient-Stated? Author Autogenera mitchell Goal Care Plan Autogenerated Problem No Susanne [employer] Implanted Type Area Analytics Consultant Device Identifier Shelf Expiration Date Model / Serial / Lot Hemost Abs Surgicel Orig 4x8in Strl - [id number] Implanted:Qt y: 1 on 05/08/2024 by Wyatt Velasquez MD at [facility] Implant Right: Shoulder ETHICON DIV OF J AND J [id number] / / [id number] Sys Sut/Anch Achilles Speedbridge W/3.9mm/Swiv elock/Anchr - [id number] Implanted:Qt y: 1 on 05/08/2024 by Wyatt Velasquez MD at [facility] Implant Right: Shoulder ARTHREX [id number] 01/13/2028 [id number] / / [id number] Cmt Bone Simplex/P Full Dose 10/Pk - [id number] Implanted:Qt y: 1 on 05/08/2024 by Wyatt Velasquez MD at [facility] Implant Right: Shoulder BAO HAN [id number] 07/15/2025 [id number] / / [id number] Cagescrw Hum/Shldr Eclipse 35mm Md - [id number] Implanted:Qt y: 1 on 05/08/2024 by Wyatt Velasquez MD at [facility] Implant Right: Shoulder ARTHREX [id number] 11/12/2028 [id number] / / [id number] Jimy Univers Vaultlock Sm - [id number] Implanted:Qt y: 1 on 05/08/2024 by Wyatt Velasquez MD at [facility] Implant Right: Shoulder ARTHREX [id number] 07/15/2028 [id number] / / [id number] Trunnion Hum/Shldr Eclipse Slot Tps/Cap 41mm - [id number] Implanted:Qt y: 1 on 05/08/2024 by Wyatt Velasquez MD at [facility] Implant Right: Shoulder ARTHREX [id number] 04/14/2025 [id number] / / [id number] Hd Hum/Shldr Eclipse 41/16 - [id number] Implanted:Qt y: 1 on 05/08/2024 by Wyatt Velasquez MD at [facility] Implant Right: Shoulder ARTHREX [id number] 06/14/2028 [id number] / / [id number] Cp Shldr Totl Nostem Cassie Tsa - [id number] Implanted:Qt y: 1 on 05/08/2024 by Wyatt Velasquez MD at [facility] Implant Right: Shoulder ARTHREX CAPSHLDRTOTLSTEM L ESSANATOMICTSA / / Procedures Procedure Name Priority Date/Time Associated Diagnosis Comments HEMOGLOBIN A1C Routine 04/25/2024 3:24 PM EDT from Last 3 Months or Most Recently Relevant to Health Maintenance Results * (ABNORMAL) Hemoglobin A1c (04/25/2024 3:24 PM EDT) Hemoglobin A1C 7.30(H) 4.80 - 5.60 % 04/25/2024 4:17 PM EDT [facility] Blood Venipuncture / Unknown 04/25/2024 3:24 PM EDT 04/25/2024 4:03 PM EDT Narrative [facility] - 04/25/2024 4:17 PM EDT Hemoglobin A1C Ranges: Increased Risk for Diabetes 5.7% to 6.4% Diabetes >= 6.5% Diabetic Goal < 7.0% Wyatt Velasquez MD LAB BLOOD ORDERABLES Fin al Result [facility]
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 Livestock 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 Expl anation POWER OF NARROW FABRICS WEAVER - SCAN 05/14/2024 1:19 PM [facility] EX, 02/07/2018 LIVING WILL - SCAN 09/27/2022 12:56 PM [facility], [facility], 02/07/2018 * CPR (Attempt to Resuscitate) (Latest Code Status on File) Date Activated Date Inactivated Comments 05/08/2024 2:19 PM 05/13/2024 5:19 PM Question Answer Comments Code Status (Patient has no pulse and is not breathing): CPR (Attempt to Resuscitate) Medical Interventions (Patie nt has pulse or is breathing): Full Support Level Of Support Discussed With: Patient Care Teams Construction Engineer Relationship Specialty Start Date End Date Nick Osborne MD [address] [facility] [address] [place] [address] PCP - General Internal Medicine 12/19/16
--- OUTSIDE RECORDS SUMMARY | 2025-05-12 09:52 | XMS_ITS | Encounter Summary ---
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 - [employer] Social History Tobacco Use [...] Description 04/22/2026 2:45 PM EDT Office Visit [facility] [address] [place] [address] [place] [address] Bhanu Lu MD [address] [place] [address] [address] [place] [address] documented as of this encounter Visit Diagnoses Not on filedocumented in this encounter Care Teams Escapement Matcher Relationship Specialty Start Date End Date Nick Osborne MD [address] [facility] [address] [place] [address] PCP - General Internal Medicine 12/19/16 documented as of this encounter
== END 2025-05-11 23:59 ==
LOC: LAB.DROPOF 05-12 09:40
PROVIDERS: PCP Internal Medicine; Visit Provider Internal Medicine
DX: E11.42 Type 2 diabetes mellitus with diabetic polyneuropathy (principal); E11.59 Type 2 diabetes mellitus with other circulatory complications; E78.5 Hyperlipidemia, unspecified; I10 Essential (primary) hypertension
CPT/HCPCS: 80053; 80061; 82043; 82570; 83036